=== PATIENT | female | born 1950 | race African-American/Black ===

== ENCOUNTER 2018-10-06 13:33 | Inpatient (IN) | payer MEDICARE, OTHER ==
[~2018-10-06] VITALS: Ht 160 cm; Wt 76.7 kg
[2018-10-06] VITALS (7 sets, daily range): BP systolic 109–162; BP diastolic 61–91
--- NOTE | 2018-10-06 13:36 | NUR ---
ED Nurse Note: Pt was brought in by ambulance from [facility] [place]/t [place] 20mins prior ED arrival. Pt also arrived with low SBP at 78. Pt awake but non verbal, no SOB. DR Pires notified.
[2018-10-06] MEDS ORDERED: Naloxone 1mg/ml 2ml IVP ONE (13:45)
--- NOTE | 2018-10-06 13:45 | Emergency Room Report ---
History of Present Illness General Chief Complaint: Altered Level of Consciousness Source: Medical Record, EMS Present Illness HPI Patient presents with altered level of consciousness for one hour. She has a history in the past of being post cardiac arrest in drug abuse. There is no axis to drugs at the facility apparently. Paramedics found her with good blood pressure however the last blood pressure the obtained was 79 in our entryway. An Accu-Chek in the feels 1:30. Apparently has been admitted at [facility] for similar. Not certain of dx. Dr. Garcia provided records from [facility]. Apparently she had a similar presentation but was febrile and had a respiratory infection. She responded to Narcan and apparently did not need intubation at that time. No further history is obtainable. Allergies: Coded Allergies: ASPIRIN (Verified Allergy, Unknown, 10/06/18) PENICILLINS (Unverified Allergy, Unknown, 10/06/18) Uncoded Allergies: PENICILLIN (Allergy, Unknown, 10/06/18) Patient History Limited by: medical condition Past Medical History: see triage record, old chart reviewed Social History: Denies: alcohol use - in past, drug use - in past Social History Narrative SNF Reviewed Nursing Documentation: PMH: Agreed; PSxH: Agreed Review of Systems All Other Systems: limited Physical Exam Vital Signs Date Time Temp Pulse Resp B/P (MAP) Pulse Ox O2 Delivery O2 Flow Rate FiO2 10/06/18 13:26 98.1 89 26 135/109 (118) 98 Simple Mask 15.0 Sp02 EP Interpretation: reviewed, abnormal - Fluctuating but sometimes interpreted as low by me General Appearance: non-toxic, Stupor Head: normocephalic, atraumatic Eyes: bilateral eye normal inspection, bilateral eye PERRL - pinpoint ENT: moist mucus membranes - Minimal gag present Neck: supple Respiratory: decreased breath sounds, other - Poor tidal volume Cardiovascular #1: normal peripheral pulses, regular rate, rhythm, no edema Cardiovascular #2: 2+ radial (R) Gastrointestinal: non tender, decreased bowel sounds Genitourinary: normal inspection Musculoskeletal: other - Flaccid Neurologic: other - Stuporous and unresponsive to painful stimuli Psychiatric: other - Stupor Reflexes: 1+ knee (R), 1+ knee (L) Skin: warm/dry, cyanosis Procedures Critical Care Time Critical Care Time Total Critical Care Time: 120 min bedside evaluation and treatment excludes procedures (EKG, intubation). Reason for critical care: Hypoxic respiratory failure, stupor, hypocalcemia, review of prior records, discussion was admitting physician and with consultants. Possible complications: hypotension, hypertension, IA, shock, arrhythmias, metabolic acidosis, end organ damage, respiratory failure. Interventions: Intubation, antibiotics, Narcan, treatment of hypocalcemia, adjustment of ventilator, Course: Patient presented with stupor. Multiple attempts at evaluation and final blood gas letter to decision to intubate the patient. Initial intubation was of the right mainstem and therefore the ET tube was pulled back. A second x -ray revealed good ETT position however right middle lobe infiltrate. Narcan had been administered prior to intubation and there was some improvement (more opening of eyes) but still flaccid. Antibiotics begun. Ventilator adjusted after blood gas returns. Critical hypocalcemia treated with calcium gluconate. Discussion of antibiotic choice with pulmonary analytics consultant. Primary physician examined patient emergency department. Patient with improvement and admitted to ICU. Consultations: nursing staff, EMS, admitting MD, consultants, RT Performed by: Dr. Pires Tolerated well condition = critical Intubation Intubation : Consent: Emergent Intubation Method: orotracheal Tube Size (cm): 7.5 - 22 lower gums Breath Sounds after Intubation: equal Intubation Complications: no complications Post Intubation Xray: Yes - Right mainstem bronchus intubation, ET pulled back second x-ray with adequate ET placement. Attempts: One Patient Tolerated: Well Complications: None Medical Decision Making Diagnostic Impression: Primary Impression: Altered level of consciousness Additional Impressions: Respiratory failure Qualified Codes: J96.01 - Acute respiratory failure with hypoxia Right middle lobe pneumonia Qualified Codes: J18.1 - Lobar pneumonia, unspecified organism Hypocalcemia Opiate abuse ER Course Patient presents with altered level of consciousness with minimal but present gag and rhonchorous cough with history of been post cardiac arrest. Differential includes brain bleed, electrolyte imbalance, drug ingestion, sepsis with hypotension, pneumonia amongst others. At this time her airway is patent however she may need to be intubated. ABG was immediately ordered as well as Narcan. She's hypotensive and will be given a fluid bolus. EKG, CT the head, chest x-ray and other labs including sepsis workup are obtained. Patient will be admitted to intensive care unit unless she dramatically improves. Hypoxia and decreased gag. Intubation. (Minimal response to Narcan - eyes more open). Intubated. Thick secretions. R mainstem. Pulled 4 cm and repeat CXR. RML infiltrate. Antibiotics ordered. Discussed with pulmonary analytics consultant. Critically low calcium. Ionized calcium ordered. Also calcium gluconate also ordered. White count normal. Urine tox screen positive for opiates. Initial lactic acid normal. CT scan obtained -no intracranial pathology., Patient somewhat improved with stabilized airway and admitted to ICU to Dr. Main. On the basis of the hypocalcemia magnesium is added to labs. Laboratory Tests Test 10/06/18 13:45 10/06/18 13:55 10/06/18 14:55 10/06/18 16:37 Arterial Blood pH 7.425 (7.350-7.450) 7.431 (7.350-7.450) Arterial Blood Partial Pressure CO2 38.1 mmHg (35.0-45.0) 32.2 mmHg (35.0-45.0) L Arterial Blood Partial Pressure O2 48.6 mmHg (75.0-100.0) 129.0 mmHg (75.0-100.0) H Arterial Blood HCO3 24.4 mmol/L (22.0-26.0) 20.9 mmol/L (22.0-26.0) L Arterial Blood Oxygen Saturation 81.1 % (95-100) *L 98.1 % (95-100) Arterial Blood Base Excess 0.2 (-2-2) -2.5 (-2-2) L Bradly Test Positive Positive White Blood Count 5.9 K/UL (4.8-10.8) Red Blood Count 2.35 M/UL (4.20-5.40) L Hemoglobin 7.0 G/DL (12.0-16.0) L Hematocrit 22.0 % (37.0-47.0) L Mean Corpuscular Volume 94 FL (80-99) Mean Corpuscular Hemoglobin 30.0 PG (27.0-31.0) Mean Corpuscular Hemoglobin Concent 32.0 G/DL (32.0-36.0) Red Cell Distribution Width 12.4 % (11.6-14.8) Platelet Count 140 K/UL (150-450) L Mean Platelet Volume 7.7 FL (6.5-10.1) Neutrophils (%) (Auto) % (45.0-75.0) Lymphocytes (%) (Auto) % (20.0-45.0) Monocytes (%) (Auto) % (1.0-10.0) Eosinophils (%) (Auto) % (0.0-3.0) Basophils (%) (Auto) % (0.0-2.0) Differential Total Cells Counted 100 Neutrophils % (Manual) 74 % (45-75) Lymphocytes % (Manual) 17 % (20-45) L Monocytes % (Manual) 6 % (1-10) Eosinophils % (Manual) 2 % (0-3) Basophils % (Manual) 1 % (0-2) Band Neutrophils 0 % (0-8) Platelet Estimate Decreased L Platelet Morphology Normal Hypochromasia 2+ Anisocytosis 1+ Sodium Level 145 MMOL/L (136-145) Potassium Level 3.1 MMOL/L (3.5-5.1) L Chloride Level 117 MMOL/L (98-107) H Carbon Dioxide Level 18 MMOL/L (21-32) L Anion Gap 10 mmol/L (5-15) Blood Urea Nitrogen 9 mg/dL (7-18) Creatinine 0.5 MG/DL (0.55-1.30) L Estimate Glomerular Filtration Rate > 60 mL/min (>60) Glucose Level 77 MG/DL (74-106) Lactic Acid Level 1.50 mmol/L (0.4-2.0) Calcium Level 5.0 MG/DL (8.5-10.1) *L Iron Level 26 ug/dL (50-175) L Total Iron Binding Capacity 111 ug/dL (250-450) L Percent Iron Saturation 23 % (15-50) Unsaturated Iron Binding 85 ug/dL (112-346) L Ferritin 178 NG/ML (8-388) Total Bilirubin 0.2 MG/DL (0.2-1.0) Aspartate Amino Transferase (AST) 33 U/L (15-37) Alanine Aminotransferase (ALT) 13 U/L (12-78) Alkaline Phosphatase 39 U/L (46-116) L Ammonia 12 umol/L (11-32) Total Creatine Kinase 17 U/L (26-308) L Troponin I 0.042 ng/mL (0.000-0.056) Total Protein 2.8 G/DL (6.4-8.2) L Albumin 1.0 G/DL (3.4-5.0) L Globulin 1.8 g/dL Albumin/Globulin Ratio 0.6 (1.0-2.7) L Vitamin B12 Level 404 PG/ML (193-986) Folate 3.3 NG/ML (8.6-58.9) L Thyroid Stimulating Hormone (TSH) 2.756 uiU/mL (0.358-3.740) Salicylates Level 0.3 ug/mL (2.8-20) L Acetaminophen Level 17 MCG/ML (10-30) Serum Alcohol < 3 mg/dL Urine Color Pale yellow Urine Appearance Clear Urine pH 7 (4.5-8.0) Urine Specific [place] 1.005 (1.005-1.035) Urine Protein Negative (NEGATIVE) Urine Glucose (UA) Negative (NEGATIVE) Urine Ketones 1+ (NEGATIVE) H Urine Blood 1+ (NEGATIVE) H Urine Nitrite Negative (NEGATIVE) Urine Bilirubin Negative (NEGATIVE) Urine Urobilinogen Normal MG/DL (0.0-1.0) Urine Leukocyte Esterase 1+ (NEGATIVE) H Urine RBC 2-4 /HPF (0 - 2) H Urine WBC 2-4 /HPF (0 - 2) Urine Squamous Epithelial Cells Few /LPF (NONE/OCC) Urine Bacteria Few /HPF (NONE) Urine Opiates Screen Positive (NEGATIVE) H Urine Barbiturates Screen Negative (NEGATIVE) Phencyclidine (PCP) Screen Negative (NEGATIVE) Urine Amphetamines Screen Negative (NEGATIVE) Urine Benzodiazepines Screen Negative (NEGATIVE) Urine Cocaine Screen Negative (NEGATIVE) Urine Marijuana (THC) Screen Negative (NEGATIVE) EKG Diagnostic Results Rate: normal Rhythm: NSR ST Segments: no acute changes - NSSTTW changes Rhythm Strip Diag. Results EP Interpretation: yes Rhythm: NSR, no PVC's, no ectopy Chest X-Ray Diagnostic Results Chest X-Ray Diagnostic Results #1: Chest X-Ray Ordered: Yes # of Views/Limited/Complete: 1 View Indication: Other EP Interpretation: Yes Interpretation: no effusion, no pneumothorax, other - R mainstem - pulling 4 cm Impression: Other Electronically Signed by: Electronically signed by Leonel Pires MD Chest X-Ray Diagnostic Results #2: Chest X-Ray Ordered: Yes # of Views/Limited/Complete: 1 View Indication: Other EP Interpretation: Yes Interpretation: no effusion, no pneumothorax, other - RML infiltrate ET good Impression: Other Electronically Signed by: Electronically signed by Leonel Pires MD Last Vital Signs Date Time Temp Pulse Resp B/P (MAP) Pulse Ox O2 Delivery O2 Flow Rate FiO2 10/06/18 18:47 85 20 28 10/06/18 18:00 Mechanical Ventilator 10/06/18 17:33 98.3 139/86 100 10/06/18 16:08 15.0 Status: improved Disposition: ADMITTED INPATIENT Condition: Critical Leonel Pires MD October 06, 2018 13:45
[2018-10-06] MEDS ORDERED: HYDROCHLOROTH12.5 M2 ORAL (13:57)
[2018-10-06] MEDS ORDERED: VITAMIN D1000 UNI1 ORAL (13:57)
[2018-10-06] MEDS ORDERED: POTASSIUM CHLO20 ME3 PO (13:57)
[2018-10-06] MEDS ORDERED: ATORVASTATIN CA20 MG ORAL (13:57)
[2018-10-06] MEDS ORDERED: RAMIPRIL5 MG ORAL (13:57)
[2018-10-06] MEDS ORDERED: LACTULOSE20 GM/301 ORAL (13:57)
[2018-10-06] MEDS ORDERED: ALLOPURINOL100 M1 ORAL (13:57)
[2018-10-06] MEDS ORDERED: FUROSEMIDE20 M1 ORAL (13:57)
[2018-10-06] MEDS ORDERED: RISPERIDONE1 MG ORAL (13:57)
[2018-10-06] MEDS ORDERED: ACETAMINOPHEN500 M5 ORAL (13:57)
[2018-10-06] MEDS ORDERED: PANTOPRAZOLE SO20 MG ORAL (13:57)
[2018-10-06] MEDS ORDERED: NORCO 5-325 TA1 EACH ORAL (13:57)
[2018-10-06] MEDS ORDERED: GABAPENTIN300 MG ORAL (13:57)
--- NOTE | 2018-10-06 14:00 | NUR ---
HAND-OFF: Report given to Paddy HESTER.
--- NOTE | 2018-10-06 14:10 | NUR ---
ED Nurse Note: DR COLE AT BEDSIDE FOR INTUBATION. RT ALSO AT BEDSIDE. VENT SETTINGS: SET RATE: 16, TV: 450, FiO2: 30%, PEEP 5, TUBE SIZE 7.5, 18CM AT LIPS.
--- NOTE | 2018-10-06 14:17 | NUR ---
ED Nurse Note: ORDER PLACED BY DR COLE FOR NONBEHAVIORAL RESTRAINTS DUE TO INTUBATION. PT SLEEPING PEACEFULLY IN BED. WILL HOLD OFF ON RESTRAINTS UNTIL NEEDED. DR COLE AWARE.
[2018-10-06 14:47] LABS: MEAN CORPUSCULAR VOLUME 94 FL (80-99); PLATELET COUNT 140 K/UL (150-450); RED BLOOD COUNT 2.35 M/UL (4.20-5.40); RED CELL DISTRIBUTION WIDTH 12.4 % (11.6-14.8); WHITE BLOOD COUNT 5.9 K/UL (4.8-10.8)
[2018-10-06 15:00] LABS: AMMONIA 12 umol/L (11-32)
[2018-10-06 15:12] LABS: ALANINE AMINOTRANSFERASE 13 U/L (12-78); ALBUMIN/GLOBULIN RATIO 0.6 (1.0-2.7); ALKALINE PHOSPHATASE 39 U/L (46-116); ANION GAP 10 mmol/L (5-15); ASPARTATE AMINO TRANSFERASE 33 U/L (15-37); BILIRUBIN,TOTAL 0.2 MG/DL (0.2-1.0); BLOOD UREA NITROGEN 9 mg/dL (7-18); CARBON DIOXIDE 18 MMOL/L (21-32); CHLORIDE 117 MMOL/L (98-107); CREATINE KINASE 17 U/L (26-308); CREATININE 0.5 MG/DL (0.55-1.30); POTASSIUM 3.1 MMOL/L (3.5-5.1); SODIUM 145 MMOL/L (136-145)
[2018-10-06] MEDS ORDERED: Vancomycin 1 GM in NS 275 ML IVPB ONE (15:15)
[2018-10-06] MEDS ORDERED: Cefepime 1gm vial IM ONE (15:15)
[2018-10-06] MEDS ORDERED: Piperacillin/Tazobactam 3.375 GM in NS 110 ML IVPB ONE (15:15)
[2018-10-06] MEDS ORDERED: Cefepime HCl 1 GM in D5W 55 ML IVPB ONE (15:30)
--- NOTE | 2018-10-06 16:03 | NUR ---
RESPIRATORY NOTE: called to ER that patient may possibly be intubated. ABG taken with results relayed to Dr. Pires. Intubated patient at 1410 with oral ETT 7.5 placed 22cm at the lip. xray taken and verbal told to withdraw ETT 4cm. ETT is now placed 18cm at the lip, secured via anchor fast. no redness or skin tears visible prior to patient being intubated. placed patient on vent settings of AC 16 400 30% +5 and later increase tidal volume to 450. ABG drawn post intubation and resulted to Dr Pires again. Ca Ion also resulted. Sputum collected post intubated and given to RN. will cont to monitor patient and follow orders.
--- NOTE | 2018-10-06 16:22 | Consultation ---
Consult Note Consult Note asked to eval at the request of Dr Main patient seen in ER room 6 intubated Chief Complaint: Altered Level of Consciousness HPI Patient presents with altered level of consciousness for one hour. She has a history in the past of being post cardiac arrest in drug abuse. There is no axis to drugs at the facility apparently. Paramedics found her with good blood pressure however the last blood pressure the obtained was 79 in our entryway. An Accu-Chek in the feels 1:30. Apparently has been admitted at [facility] for similar. Not certain of dx. Allergies: Coded Allergies: ASPIRIN (Verified Allergy, Unknown, 10/06/18) PENICILLINS (Unverified Allergy, Unknown, 10/06/18) intubated tachycardic abd distended , multi surgical scars few ronchi Assessment/Plan acute respiratory failure- Severe Anemia Severe Hypocalcemia Severe hypoalbuminemia ? sepsis lindsay urine studies IV calcium monitor lytes and chemistries Gregory Hagan MD October 06, 2018 16:22
[2018-10-06] MEDS ORDERED: Calcium Gluconate 10% 2 GM in NS 110 ML IV ONE (16:30)
--- NOTE | 2018-10-06 16:30 | NUR ---
ED Nurse Note: DR COLE AT BEDSIDE FOR BORGES CATHETER INSERTION. 16F BORGES CATHETER INSERTED BY DR COLE USING STERILE TECHNIQUE. BORGES DRAINING CLEAR YELLOW URINE. PT TOLERATED WELL.
--- NOTE | 2018-10-06 16:33 | NUR ---
ED Nurse Note: RADIOLOGY CALLED FOR CT.
--- NOTE | 2018-10-06 16:34 | NUR ---
ED Nurse Note: RT CALLED FOR CT ESCORT.
--- NOTE | 2018-10-06 16:41 | NUR ---
ED Nurse Note: PT TO CT VIA DULCE ACCOMPANIED BY RT
[2018-10-06 16:48] LABS: APPEARANCE,URINE CLEAR; BILIRUBIN, URINE NEGATIVE (NEGATIVE); COLOR,URINE PALE YELLOW; GLUCOSE, URINE (UA) NEGATIVE (NEGATIVE); KETONES,URINE 1+ (NEGATIVE); LEUKOCYTE ESTERASE ,URINE 1+ (NEGATIVE); NITRITE,URINE NEGATIVE (NEGATIVE); PH,URINE 7 (4.5-8.0); PROTEIN,URINE NEGATIVE (NEGATIVE); UROBILINOGEN,URINE NORMAL MG/DL (0.0-1.0)
--- NOTE | 2018-10-06 16:55 | NUR ---
ED Nurse Note: PT BACK FROM CT VIA DULCE.
--- NOTE | 2018-10-06 17:00 | NUR ---
ED Nurse Note: ICU CALLED FOR PT TRANSFER. KACIE RAMIREZ NOT READY FOR PT. RN WILL CALL BACK WHEN READY.
--- NOTE | 2018-10-06 17:08 | NUR ---
ED Nurse Note: NEW VENT SETTINGS: A/C: 12 TV: 500
--- NOTE | 2018-10-06 17:11 | NUR ---
ED Nurse Note: CALLED ICU. NO ANSWER.
--- NOTE | 2018-10-06 17:13 | NUR ---
ED Nurse Note: KACIE RAMIREZ STILL NEEDS 5 MINUTES. WILL CALL BACK IN 5 MINUTES.
[2018-10-06 17:20] LABS: FERRITIN 178 NG/ML (8-388)
--- NOTE | 2018-10-06 17:33 | NUR ---
ED Nurse Note: ICU CALLED FOR PT TRANSFER. REPORT GIVEN TO KACIE RAMIREZ. PT TAKEN UP TO ICU VIA GURNEY ON [employer] AND IV VANCO ACCOMPANIED BY EMT, PRIMARY RN, AND RT. VSS.
--- NOTE | 2018-10-06 17:38 | Diagnostic Imaging Report ---
EXAM: CT Head Without Intravenous Contrast CLINICAL HISTORY: ALOC TECHNIQUE: Axial computed tomography images of the head/brain without intravenous contrast. CTDI is 70.38 mGy and DLP is 1382 mGy-cm. One or more of the following dose reduction techniques were used: automated exposure control, adjustment of the mA and/or kV according to patient size, use of iterative reconstruction technique. COMPARISON: No relevant prior studies available. FINDINGS: Brain: No intracranial hemorrhage or apparent acute cortical infarct. Involutional changes with small vessel disease. Ventricles: No ventriculomegaly. Bones/joints: No acute fracture. Soft tissues: Unremarkable. Sinuses: No acute sinusitis. Mastoid air cells: No mastoid effusion. Orbits: Cataract surgery. Tubes, lines and devices: Endotracheal tube. IMPRESSION: No intracranial hemorrhage or apparent acute cortical infarct.
[2018-10-06 17:43] LABS: % IRON SATURATION 23 % (15-50); IRON 26 ug/dL (50-175); TOTAL IRON BINDING CAPACITY 111 ug/dL (250-450)
--- NOTE | 2018-10-06 17:55 | NUR ---
NURSE NOTES: Received new admission from ER. Pt was transferred to ICU via [facility] Report received from Paddy HESTER. Pt is lethargic, opens eyes to voice/name, with pupil response to penlight sluggish, at 3mm bilateral. Pt is intubated with ETT 7.5, at 18cm at right lipline, currently on vent settings of AC12, VT500, Peep 5.0, FIO2 28% at O2sat 99%. Bilateral rhonchi present on auscultation. potline monitor displays NSR with heart rate fluctuating in the 90's. Axillary temp at 98.5F. Bounding radial pulses, and weak pedal pulses noted. No edema on extremities. Skin is intact, with mild dark discoloration on sacral area. Jorge catheter in place, draining clear/yellow urine. Abdomen is round, soft/nontender to touch, with hypoactive bowel sounds present on auscultation. Pt's only belonging is a yellow metal ring on middle-finger of the left hand and yellow metal necklace with blue and red stones. Belonging list was signed upon receipt of pt. Bed is locked with three side rails up and call light within reach. Will continue to monitor pt and follow plan of care per admission orders. Addendum: 10/06/18 at 1915 by RAQUEL CARPENTER RN Also noted old/healed incisional scar on vertical on mid-abdomen and horizontal on RUQ.
[2018-10-06] MEDS: D5 1/2NS w/KCl 40meq 1000ml 1,000 ML IV SCH (18:13)
--- NOTE | 2018-10-06 19:13 | NUR ---
HAND-OFF: Report given to Jason HESTER. VS stable. Endorsed plan of care.
--- NOTE | 2018-10-06 19:30 | NUR ---
NURSE NOTES: Received new admission from Ayanna HESTER, Pt is lethargic, opens eyes to voice/name, with pupil response to penlight sluggish, at 3mm bilateral. Pt is intubated with ETT 7.5, at 18cm at right lipline, currently on vent settings of AC12, VT500, Peep 5.0, FIO2 28% at O2sat 100%. Bilateral rhonchi present on auscultation. shelter monitor displays NSR with heart rate fluctuating in the 80's. Axillary temp at 99.2F. Bounding radial pulses, and weak pedal pulses noted. No edema on extremities. Skin is intact, with mild dark discoloration on sacral area. Jorge catheter in place, draining clear/yellow urine. Abdomen is round, soft/nontender to touch, with hypoactive bowel sounds present on auscultation. Also noted old/healed incisional scar on vertical on mid-abdomen and horizontal on RUQ. Pt's only belonging is a yellow metal ring on middle-finger of the left hand and yellow metal necklace with blue and red stones. Bed is locked with three side rails up and call light within reach. Patient receiving D5W 1/2NS w/40 meq KCL at 75ml/hr. =
--- NOTE | 2018-10-06 20:00 | NUR ---
NURSE NOTES: Patient repositioned and suctioned. Oral care provided. Patient calm and relaxed. Patient able to oepn eyes to verbal responses and seems to be able to response to verbal command as much as possible.
--- NOTE | 2018-10-06 20:15 | Consultation ---
DATE OF CONSULTATION: 10/06/2018 HISTORY OF PRESENT ILLNESS: The patient is a 67-year-old woman who comes to the emergency department because of respiratory distress and altered mental status. She was found to have severe hypoxemia and was intubated. Pneumonia was identified on chest x-ray and antibiotics were administered. I was called to see her in consultation. The patient can provide no additional history. PAST MEDICAL HISTORY: She lives in a fdc. She has had opioid overdose, urinary tract infection, basal ganglia stroke, gout, past cardiac arrest with rib fractures, anemia, protein-calorie malnutrition, morbid obesity, dementia, hypertension, esophageal ulcer, diaphragmatic hernia. ALLERGIES: Aspirin and penicillin. REVIEW OF SYSTEMS: Cannot be obtained. PHYSICAL EXAMINATION: GENERAL: The patient is poorly responsive, lying in bed with an orotracheal tube on ventilator support. VITAL SIGNS: Blood pressure 92/68. There is no high fever. Heart rate is 89 and regular. The patient is obese. HEENT: Head is normocephalic. NECK: No jugular venous distention. CHEST: Decreased breath sounds. CARDIAC: Rhythm is regular. ABDOMEN: Soft and nontender. EXTREMITIES: No clubbing, cyanosis, or edema. DIAGNOSTIC DATA: Chest x-ray shows right base infiltrate. The white count is normal. Differential is pending. Hemoglobin is 7, platelet count is 140,000. A blood gas shows pH of 7.42, pCO2 38, pO2 48. Subsequent blood gas after intubation shows pO2 improved. Chemistries pending. Troponin is normal. Lactic acid is normal. Toxicology and urinalysis are pending. IMPRESSION: 1. Acute respiratory failure. 2. Altered mental status with history of hemorrhagic stroke. 3. Pneumonia right lower lobe. 4. Severe anemia. PLAN: The patient will be admitted to intensive care unit. We will give antibiotics and fluids. Blood transfusion will be given. The patient's condition is critical.. Chevy Garcia M.D. DR: Feliciano JOB#: [id number] CC: Demario Main M.D.; Fax#: [phone] CHEVY GARCIA M.D. ; FAX#: [phone]
--- NOTE | 2018-10-06 20:30 | History and Physical Report ---
DATE OF ADMISSION: 10/06/2018 HISTORY OF PRESENT ILLNESS: This is a 67-year-old female who [facility] and came to the emergency room for altered mental status and hypoxia. The patient is currently nonverbal. No gag reflex, not protecting her airways. The patient is nonverbal. The patient had this kind of issue 3 times, had been in [place] 2 times same time. The obvious reason was not found. The patient came currently hypotensive. PHYSICAL EXAMINATION: VITAL SIGNS: Blood pressure is 70s, pulse 78, respirations 6, temperature no fever. HEENT: Eyes are closed. NECK: Supple. CHEST: Bilateral decreased breath sounds. CARDIOVASCULAR: Regular rhythm. No gallop. No murmur. ABDOMEN: Soft. Positive bowel sounds. EXTREMITIES: No edema. GENITOURINARY: Examination deferred. LABORATORY AND DIAGNOSTIC DATA: Her ABGs are back, pH 7.42, pO2 51, pCO2 51, bicarbonate is low, and saturation is low. Chest x-ray and other laboratories are pending. ASSESSMENT: 1. Acute respiratory failure. 2. Hypoxia. 3. Altered mental status. 4. Diabetes. 5. Encephalopathy. 6. Severe arthritis. 7. History of ulcer on the abdominal wall. PLAN: We will admit on ICU. Start IV fluid. Levophed drip, titrate to blood pressure 90s . Discussed with Dr. Pires. The patient probably needs intubation. We will order ABG after intubation, given Narcan and IV fluid bolus. Sliding scale, Accu-Chek, and consider Nephrology consult as well as consider Cardiology consult. Demario Main M.D. DR: Emily JOB#: [id number] CC:
[2018-10-06] MEDS: Calcium Gluconate 10% 1 GM in NS 110 ML IVPB SCH (21:17)
[2018-10-06] MEDS: Pantoprazole Inj IVP SCH (21:17)
--- NOTE | 2018-10-06 22:00 | NUR ---
NURSE NOTES: Patient repositioned and suctioned. NAD at this time, fluids running. Vitals remains stable.
[2018-10-06] MEDS: Cefepime HCl 1 GM in D5W 55 ML IVPB SCH (22:58)
[2018-10-07] VITALS (24 sets, daily range): BP systolic 108–171; BP diastolic 70–121
--- NOTE | 2018-10-07 | NUR ---
NURSE NOTES: Patient repositioned and given oral care. Patient remains awake. Can respond to commands with head knods. Vitals are stable, no fever.
--- NOTE | 2018-10-07 02:00 | NUR ---
NURSE NOTES: Repositioned patient, remains stable at this time, VSS. no new changes.
--- NOTE | 2018-10-07 04:00 | NUR ---
NURSE NOTES: morning blood drawn and sent to lab. Patient cleaned and repositioned, oral care was also given. VVS no acute changes, will continue to monitor.
[2018-10-07] MEDS: Vancomycin 1gm/D5W 275ml IVPB SCH ×4 (04:11→16:24)
[2018-10-07] MEDS: Calcium Gluconate 10% 1 GM in NS 110 ML IVPB SCH (05:21)
--- NOTE | 2018-10-07 06:00 | NUR ---
NURSE NOTES: Patient more awake and responsive. VSS, SR on the monitor. No acute changes overnight.
[2018-10-07 06:04] LABS: BASOPHILS % (AUTO) 1.2 % (0.0-2.0); EOSINOPHILS % (AUTO) 1.3 % (0.0-3.0); HEMATOCRIT 34.9 % (37.0-47.0); LYMPHOCYTES % (AUTO) 14.7 % (20.0-45.0); MEAN CORPUSCULAR VOLUME 89 FL (80-99); MONOCYTES % (AUTO) 7.4 % (1.0-10.0); NEUTROPHILS % (AUTO) 75.4 % (45.0-75.0); PLATELET COUNT 243 K/UL (150-450); RED BLOOD COUNT 3.93 M/UL (4.20-5.40); WHITE BLOOD COUNT 15.7 K/UL (4.8-10.8)
[2018-10-07 06:24] LABS: ANION GAP 12 mmol/L (5-15); BLOOD UREA NITROGEN 12 mg/dL (7-18); CALCIUM 10.8 MG/DL (8.5-10.1); CARBON DIOXIDE 21 MMOL/L (21-32); CHLORIDE 103 MMOL/L (98-107); POTASSIUM 3.9 MMOL/L (3.5-5.1); SODIUM 136 MMOL/L (136-145)
[2018-10-07 06:28] LABS: ALANINE AMINOTRANSFERASE 31 U/L (12-78); ALBUMIN 2.7 G/DL (3.4-5.0); ALBUMIN/GLOBULIN RATIO 0.7 (1.0-2.7); ALKALINE PHOSPHATASE 101 U/L (46-116); ASPARTATE AMINO TRANSFERASE 57 U/L (15-37); BILIRUBIN,TOTAL 0.5 MG/DL (0.2-1.0); CHOLESTEROL 119 MG/DL (< 200); HDL CHOLESTEROL 30 MG/DL (40-60); TRIGLYCERIDES 96 MG/DL (30-150)
[2018-10-07 06:55] LABS: PHOSPHORUS 3.4 MG/DL (2.5-4.9)
--- NOTE | 2018-10-07 07:01 | NUR ---
RESPIRATORY NOTE: Received pt on AC 12-500ml-28%FiO2- peep 5, pt is orally intubated with ETT 7.5 @18cm lips line, secured with anchor fast. Pt is alert/ awake,no SOB or resp distress noted. Antoine diminished B/S heard upon auscultation, suctioned minimal amount of thin frothy peace white secretions without incidents. Alarms are set and audible, vent is plugged into the red outlet, ambu bag is at bedside. Vent circuits and sxn tube are secured and out of the way. Will continue to monitor pt.
[2018-10-07] MEDS: D5 1/2NS w/KCl 40meq 1000ml 1,000 ML IV SCH ×2 (07:07→13:45)
--- NOTE | 2018-10-07 07:15 | NUR ---
NURSE NOTES: Received pt and change of shift report from Jason HESTER. Pt is awake, opens eyes to voice/name, able to follow with eyes, however uncooperative. Pt is attempting to pull out IV lines and ET tube despite reorientation attempts. Currently on bilateral soft wrist restraints; skin integrity within normal limits at restraint site. Pt is intubated, ETT 7.5 18cm at mid-lipline, with vent settings of AC12, VT500, Peep 5, FIO2 28% with 99% O2sat. Diminished lung sounds. cardiac monitor technician displays NSR-ST, with heart rate fluctuating from upper 90's to 100's. Currently NPO. Abdomen is large/round, soft/nontender to touch, with hypoactive bowel sounds present in all quadrants. Jorge catheter in place, draining clear/yellow urine. Skin is intact, however has brown discoloration on sacrum, and old/healed incisional scar on mid-abdomen and RLQ. Peripheral IV access on right FA #20G and left AC #20G, infusing D5 0.45%NS with KCL 40meq at 75mL/hour. Bed is locked with three side rails up and call light within reach. Will continue to monitor and follow plan of care per MD orders and protocol.
--- NOTE | 2018-10-07 08:00 | NUR ---
NURSE NOTES: Urine output of 30ml/hourly. Temp is 97.3F axillary. BP 164/105. No PRN orders for BP meds at this time. 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 Will inform MD and continue to monitor.
[2018-10-07] MEDS ORDERED: Tubing IV Secondary IV ONE ×2 (08:21→15:02)
[2018-10-07] MEDS ORDERED: NS 275ml ONE (08:21)
--- NOTE | 2018-10-07 09:06 | NUR ---
RESPIRATORY NOTE: Placed pt on CPAP PS 8- peep 5- 28%FiO2 per weaning protocol. Pt is awake/ alert/ follows commands and understand the weaning plan.Pt is tolerating well new setting, no SOB or resp distress noted. RN Ayanna made aware. Will continue to monitor.
[2018-10-07] MEDS: Pantoprazole Inj IVP SCH ×2 (09:21→21:18)
[2018-10-07] MEDS: Cefepime HCl 1 GM in D5W 55 ML IVPB SCH ×2 (09:21→21:17)
--- NOTE | 2018-10-07 10:00 | NUR ---
NURSE NOTES: Pt was seen by Dr Nagel. MD informed regarding weaning protocol done by RT today, pt was placed on CPAP PS 8- peep 5- 28%FiO2. Per MD, chest xray to be done, and repeat in AM. Pt currently on AC12 VT500 Peep 5, FIO2 28% with O2sat 100%. VS stable.
--- NOTE | 2018-10-07 10:27 | Pulmonolgy Critical Care Note ---
Critical Care - Asmt/Plan Assessment/Plan: 1. Acute respiratory failure. 2. Altered mental status with history of hemorrhagic stroke. 3. Pneumonia right lower lobe. 4. Severe anemia. 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 Critical Care - Objective Last 24 Hour Vital Signs Date Time Temp Pulse Resp B/P (MAP) Pulse Ox O2 Delivery O2 Flow Rate FiO2 10/07/18 09:06 98 25 28 28 10/07/18 09:05 10 10/07/18 09:00 106 19 164/105 (124) 100 10/07/18 08:00 28 10/07/18 08:00 97.3 96 19 163/102 (122) 100 10/07/18 07:34 97 10/07/18 07:01 105 26 28 10/07/18 07:00 106 16 165/121 (136) 100 10/07/18 06:00 88 16 165/100 (121) 100 10/07/18 05:00 90 18 171/101 (124) 100 10/07/18 04:49 90 17 28 10/07/18 04:00 28 10/07/18 04:00 Mechanical Ventilator 10/07/18 04:00 88 10/07/18 04:00 99.6 85 18 120/104 (109) 100 10/07/18 03:15 95 19 28 10/07/18 03:00 90 16 136/92 (107) 100 10/07/18 02:00 88 15 124/93 (103) 100 10/07/18 01:00 90 17 110/88 (95) 100 10/07/18 00:58 100 18 28 10/07/18 00:00 67 10/07/18 00:00 98.7 105 22 120/95 (103) 100 10/07/18 00:00 28 10/07/18 00:00 Mechanical Ventilator 10/06/18 23:07 102 18 28 10/06/18 23:00 98 16 114/67 (83) 100 10/06/18 22:00 98 18 109/87 (94) 100 10/06/18 21:12 97 19 28 10/06/18 21:00 88 20 119/78 (92) 100 10/06/18 20:00 28 10/06/18 20:00 84 19 111/75 (87) 100 10/06/18 20:00 Mechanical Ventilator 10/06/18 19:00 99.3 86 19 125/86 (99) 100 10/06/18 18:47 85 20 28 10/06/18 18:45 28 10/06/18 18:10 96 10/06/18 18:00 Mechanical Ventilator 10/06/18 17:33 98.3 86 22 139/86 100 Mechanical Ventilator 28 10/06/18 17:09 88 20 28 10/06/18 17:07 98.4 87 18 125/91 100 Mechanical Ventilator 28 10/06/18 16:08 98.2 88 22 162/61 100 Mechanical Ventilator 15.0 30 10/06/18 15:48 89 22 30 10/06/18 14:15 89 24 98 Mechanical Ventilator 30 10/06/18 14:15 89 22 30 10/06/18 13:36 89 26 Room Air 10/06/18 13:26 98.1 89 26 135/109 (118) 98 Simple Mask 15.0 Status: awake Condition: critical Lungs: clear Heart: HR/BP stable Abdomen: soft, non-tender Extremities: no C/C/E Decubiti: location Critical Care - Subjective ROS Limited/Unobtainable: Yes Condition: critical FI02: 28 Vent Support Breath Rate: 12 Vent Support Mode: AC Vent Tidal Volume: 500 Sputum Amount: Small PEEP: 5.0 PIP: 13 I&O: Intake and Output 10/06/18 10/07/18 19:00 07:00 Intake Total 2155 ml 1770 ml Output Total 25 ml 725 ml Balance 2130 ml 1045 ml Intake IV Total 2155 ml 1770 ml Output Urine Total 25 ml 725 ml # Voids 1 Subjective: awake on cpap 5 ps 8 tv 350 rr stable no new cxr today on iv abx nebs answers some yn questions no pressors ET-Tube: 7.5 ET Position: 18 Labs: Current Medications Medications (Trade) Dose Ordered Sig/Yumiko Route PRN Reason Start Time Stop Time Status Last Admin Dose Admin Calcium Gluconate 1 gm/Sodium Chloride 120 ml @ 240 mls/hr Q8HR IVPB 10/06/18 22:00 11/05/18 21:59 10/07/18 05:21 Cefepime HCl 1 gm/ Dextrose 55 ml @ 110 mls/hr EVERY 12 HOURS IVPB 10/06/18 23:00 10/13/18 22:59 10/07/18 09:21 Dextrose/ Electrolytes 1,000 ml @ 75 mls/hr [id number] IV 10/06/18 17:30 11/05/18 17:29 10/07/18 07:07 Metronidazole 100 ml @ 100 mls/hr Q6HR IVPB 10/06/18 22:00 10/13/18 21:59 10/07/18 05:22 Pantoprazole (Protonix) 40 mg EVERY 12 HOURS IVP 10/06/18 21:00 11/05/18 20:59 10/07/18 09:21 Vancomycin HCl (Vanco rx to dose) 1 ea DAILY PRN MISC Per rx protocol 10/06/18 15:15 11/05/18 15:14 Vancomycin HCl 1 gm/Dextrose 275 ml @ 183.708 mls/hr Q12HR@0400,1600 IVPB 10/07/18 04:00 10/12/18 03:59 10/07/18 04:11 Laboratory Tests Test 10/06/18 13:45 10/06/18 13:55 10/06/18 14:55 10/06/18 16:37 Arterial Blood pH 7.425 (7.350-7.450) 7.431 (7.350-7.450) Arterial Blood Partial Pressure CO2 38.1 mmHg (35.0-45.0) 32.2 mmHg (35.0-45.0) L Arterial Blood Partial Pressure O2 48.6 mmHg (75.0-100.0) 129.0 mmHg (75.0-100.0) H Arterial Blood HCO3 24.4 mmol/L (22.0-26.0) 20.9 mmol/L (22.0-26.0) L Arterial Blood Oxygen Saturation 81.1 % (95-100) *L 98.1 % (95-100) Arterial Blood Base Excess 0.2 (-2-2) -2.5 (-2-2) L Bradly Test Positive Positive White Blood Count 5.9 K/UL (4.8-10.8) Red Blood Count 2.35 M/UL (4.20-5.40) L Hemoglobin 7.0 G/DL (12.0-16.0) L Hematocrit 22.0 % (37.0-47.0) L Mean Corpuscular Volume 94 FL (80-99) Mean Corpuscular Hemoglobin 30.0 PG (27.0-31.0) Mean Corpuscular Hemoglobin Concent 32.0 G/DL (32.0-36.0) Red Cell Distribution Width 12.4 % (11.6-14.8) Platelet Count 140 K/UL (150-450) L Mean Platelet Volume 7.7 FL (6.5-10.1) Neutrophils (%) (Auto) % (45.0-75.0) Lymphocytes (%) (Auto) % (20.0-45.0) Monocytes (%) (Auto) % (1.0-10.0) Eosinophils (%) (Auto) % (0.0-3.0) Basophils (%) (Auto) % (0.0-2.0) Differential Total Cells Counted 100 Neutrophils % (Manual) 74 % (45-75) Lymphocytes % (Manual) 17 % (20-45) L Monocytes % (Manual) 6 % (1-10) Eosinophils % (Manual) 2 % (0-3) Basophils % (Manual) 1 % (0-2) Band Neutrophils 0 % (0-8) Platelet Estimate Decreased L Platelet Morphology Normal Hypochromasia 2+ Anisocytosis 1+ Sodium Level 145 MMOL/L (136-145) Potassium Level 3.1 MMOL/L (3.5-5.1) L Chloride Level 117 MMOL/L (98-107) H Carbon Dioxide Level 18 MMOL/L (21-32) L Anion Gap 10 mmol/L (5-15) Blood Urea Nitrogen 9 mg/dL (7-18) Creatinine 0.5 MG/DL (0.55-1.30) L Estimat Glomerular Filtration Rate > 60 mL/min (>60) Glucose Level 77 MG/DL (74-106) Lactic Acid Level 1.50 mmol/L (0.4-2.0) Calcium Level 5.0 MG/DL (8.5-10.1) *L Iron Level 26 ug/dL (50-175) L Total Iron Binding Capacity 111 ug/dL (250-450) L Percent Iron Saturation 23 % (15-50) Unsaturated Iron Binding 85 ug/dL (112-346) L Ferritin 178 NG/ML (8-388) Total Bilirubin 0.2 MG/DL (0.2-1.0) Aspartate Amino Transf (AST/SGOT) 33 U/L (15-37) Alanine Aminotransferase (ALT/SGPT) 13 U/L (12-78) Alkaline Phosphatase 39 U/L (46-116) L Ammonia 12 umol/L (11-32) Total Creatine Kinase 17 U/L (26-308) L Troponin I 0.042 ng/mL (0.000-0.056) Total Protein 2.8 G/DL (6.4-8.2) L Albumin 1.0 G/DL (3.4-5.0) L Globulin 1.8 g/dL Albumin/Globulin Ratio 0.6 (1.0-2.7) L Vitamin B12 Level 404 PG/ML (193-986) Folate 3.3 NG/ML (8.6-58.9) L Thyroid Stimulating Hormone (TSH) 2.756 uiU/mL (0.358-3.740) Salicylates Level 0.3 ug/mL (2.8-20) L Acetaminophen Level 17 MCG/ML (10-30) Serum Alcohol < 3 mg/dL Urine Color Pale yellow Urine Appearance Clear Urine pH 7 (4.5-8.0) Urine Specific [place] 1.005 (1.005-1.035) Urine Protein Negative (NEGATIVE) Urine Glucose (UA) Negative (NEGATIVE) Urine Ketones 1+ (NEGATIVE) H Urine Blood 1+ (NEGATIVE) H Urine Nitrite Negative (NEGATIVE) Urine Bilirubin Negative (NEGATIVE) Urine Urobilinogen Normal MG/DL (0.0-1.0) Urine Leukocyte Esterase 1+ (NEGATIVE) H Urine RBC 2-4 /HPF (0 - 2) H Urine WBC 2-4 /HPF (0 - 2) Urine Squamous Epithelial Cells Few /LPF (NONE/OCC) Urine Bacteria Few /HPF (NONE) Urine Opiates Screen Positive (NEGATIVE) H Urine Barbiturates Screen Negative (NEGATIVE) Phencyclidine (PCP) Screen Negative (NEGATIVE) Urine Amphetamines Screen Negative (NEGATIVE) Urine Benzodiazepines Screen Negative (NEGATIVE) Urine Cocaine Screen Negative (NEGATIVE) Urine Marijuana (THC) Screen Negative (NEGATIVE) Test 10/07/18 04:00 10/07/18 10:05 White Blood Count 15.7 K/UL (4.8-10.8) #H Red Blood Count 3.93 M/UL (4.20-5.40) L Hemoglobin 12.0 G/DL (12.0-16.0) # Hematocrit 34.9 % (37.0-47.0) #L Mean Corpuscular Volume 89 FL (80-99) Mean Corpuscular Hemoglobin 30.5 PG (27.0-31.0) Mean Corpuscular Hemoglobin Concent 34.2 G/DL (32.0-36.0) Red Cell Distribution Width 12.0 % (11.6-14.8) Platelet Count 243 K/UL (150-450) # Mean Platelet Volume 7.0 FL (6.5-10.1) Neutrophils (%) (Auto) 75.4 % (45.0-75.0) H Lymphocytes (%) (Auto) 14.7 % (20.0-45.0) L Monocytes (%) (Auto) 7.4 % (1.0-10.0) Eosinophils (%) (Auto) 1.3 % (0.0-3.0) Basophils (%) (Auto) 1.2 % (0.0-2.0) Sodium Level 136 MMOL/L (136-145) Potassium Level 3.9 MMOL/L (3.5-5.1) Chloride Level 103 MMOL/L (98-107) Carbon Dioxide Level 21 MMOL/L (21-32) Anion Gap 12 mmol/L (5-15) Blood Urea Nitrogen 12 mg/dL (7-18) Creatinine 1.0 MG/DL (0.55-1.30) # Estimat Glomerular Filtration Rate > 60 mL/min (>60) Glucose Level 119 MG/DL (74-106) H Hemoglobin A1c 5.6 % (4.3-6.0) Uric Acid 6.3 MG/DL (2.6-7.2) Calcium Level 10.8 MG/DL (8.5-10.1) #H Ionized Calcium (Measured) 1.31 mmol/L (1.10-1.35) Phosphorus Level 3.4 MG/DL (2.5-4.9) Magnesium Level 1.1 MG/DL (1.8-2.4) L Total Bilirubin 0.5 MG/DL (0.2-1.0) Aspartate Amino Transf (AST/SGOT) 57 U/L (15-37) H Alanine Aminotransferase (ALT/SGPT) 31 U/L (12-78) Alkaline Phosphatase 101 U/L (46-116) Ammonia 23 umol/L (11-32) Troponin I 1.583 ng/mL (0.000-0.056) C-Reactive Protein, Quantitative 2.0 mg/dL (0.00-0.90) H Pro-B-Type Natriuretic Peptide 235 pg/mL (0-125) H Total Protein 6.7 G/DL (6.4-8.2) # Albumin 2.7 G/DL (3.4-5.0) L Globulin 4.0 g/dL Albumin/Globulin Ratio 0.7 (1.0-2.7) L Triglycerides Level 96 MG/DL (30-150) Cholesterol Level 119 MG/DL (< 200) LDL Cholesterol 74 mg/dL (<100) HDL Cholesterol 30 MG/DL (40-60) L Cholesterol/HDL Ratio 4.0 (3.3-4.4) Cortisol AM Sample Pending Arterial Blood pH 7.432 (7.350-7.450) Arterial Blood Partial Pressure CO2 29.8 mmHg (35.0-45.0) L Arterial Blood Partial Pressure O2 110.3 mmHg (75.0-100.0) H Arterial Blood HCO3 19.4 mmol/L (22.0-26.0) L Arterial Blood Oxygen Saturation 97.7 % (95-100) Arterial Blood Base Excess -3.7 (-2-2) L Bradly Test Positive Madison Nagel DO October 07, 2018 10:27
--- NOTE | 2018-10-07 10:55 | NUR ---
RD ASSESSMENT & RECOMMENDATIONS SEE CARE ACTIVITY FOR COMPLETE ASSESSMENT DAILY ESTIMATED NEEDS: Needs based on Critical care, dm 56kg adj 22-28 kcals/kg [id number] total kcals 1.2-2 g protein/kg 67-112 g total protein 25-30 mL/kg 0440-3222 total fluid mLs NUTRITION DIAGNOSIS: Swallowing difficulty r/t respiratory failure as evidenced by pt is orally intubated, NPO. 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
--- NOTE | 2018-10-07 12:00 | NUR ---
NURSE NOTES: Pt is resting in semi-ravi's position, opens eyes to voice/name, able to follow with eyes, however uncooperative. Pt is attempting to pull out IV lines and ET tube despite reorientation attempts. Currently on bilateral soft wrist restraints; skin integrity within normal limits at restraint site. Vent settings maintained at AC12, VT500, Peep 5, FIO2 28% with 99% O2sat. monitoring analyst displays SR, with heart rate 90's. Currently NPO. Jorge catheter continues to drain clear/yellow urine. IV infusing D5 0.45%NS with KCL 40meq at 75mL/hour. Oral care done, pt suctioned, cleaned and repositioned.
--- NOTE | 2018-10-07 12:43 | Nephrology Progress Note ---
Assessment/Plan Problem List: (1) Respiratory failure (2) Hypocalcemia (3) Right middle lobe pneumonia (4) Hypertension (5) Elevated troponin I level Assessment acute respiratory failure- Severe Anemia doubt accuracy Severe Hypocalcemia doubt accuracy Severe hypoalbuminemia doubt accuracy ? sepsis elevated troponin HTN OOC Plan lindsay urine studies DC IV calcium monitor lytes and chemistries folic acid NG Nitrate , pavix ( ASA Allergy) Clonidin PRN Cardiazem for high BP start feeding mag IV Subjective ROS Limited/Unobtainable: Yes Objective Objective Last 24 Hour Vital Signs Date Time Temp Pulse Resp B/P (MAP) Pulse Ox O2 Delivery O2 Flow Rate FiO2 10/07/18 12:00 99.0 101 19 140/107 (118) 100 10/07/18 11:08 110 23 28 28 10/07/18 11:00 111 17 121/77 (92) 100 10/07/18 10:00 109 17 165/108 (127) 99 10/07/18 09:06 98 25 28 28 10/07/18 09:05 10 10/07/18 09:00 106 19 164/105 (124) 100 10/07/18 08:00 28 10/07/18 08:00 97.3 96 19 163/102 (122) 100 10/07/18 08:00 Mechanical Ventilator 10/07/18 07:34 97 10/07/18 07:01 105 26 28 10/07/18 07:00 106 16 165/121 (136) 100 10/07/18 06:00 88 16 165/100 (121) 100 10/07/18 05:00 90 18 171/101 (124) 100 10/07/18 04:49 90 17 28 10/07/18 04:00 28 10/07/18 04:00 Mechanical Ventilator 10/07/18 04:00 88 10/07/18 04:00 99.6 85 18 120/104 (109) 100 10/07/18 03:15 95 19 28 10/07/18 03:00 90 16 136/92 (107) 100 10/07/18 02:00 88 15 124/93 (103) 100 10/07/18 01:00 90 17 110/88 (95) 100 10/07/18 00:58 100 18 28 10/07/18 00:00 67 10/07/18 00:00 98.7 105 22 120/95 (103) 100 10/07/18 00:00 28 10/07/18 00:00 Mechanical Ventilator 10/06/18 23:07 102 18 28 10/06/18 23:00 98 16 114/67 (83) 100 10/06/18 22:00 98 18 109/87 (94) 100 10/06/18 21:12 97 19 28 10/06/18 21:00 88 20 119/78 (92) 100 10/06/18 20:00 28 10/06/18 20:00 84 19 111/75 (87) 100 10/06/18 20:00 Mechanical Ventilator 10/06/18 19:00 99.3 86 19 125/86 (99) 100 10/06/18 18:47 85 20 28 10/06/18 18:45 28 10/06/18 18:10 96 10/06/18 18:00 Mechanical Ventilator 10/06/18 17:33 98.3 86 22 139/86 100 Mechanical Ventilator 28 10/06/18 17:09 88 20 28 10/06/18 17:07 98.4 87 18 125/91 100 Mechanical Ventilator 28 10/06/18 16:08 98.2 88 22 162/61 100 Mechanical Ventilator 15.0 30 10/06/18 15:48 89 22 30 10/06/18 14:15 89 24 98 Mechanical Ventilator 30 10/06/18 14:15 89 22 30 10/06/18 13:36 89 26 Room Air 10/06/18 13:26 98.1 89 26 135/109 (118) 98 Simple Mask 15.0 Intake and Output 10/06/18 10/07/18 18:59 06:59 Intake Total 2155 ml 1550 ml Output Total 720 ml Balance 2155 ml 830 ml Intake IV Total 2155 ml 1550 ml Output Urine Total 720 ml # Voids 1 Laboratory Tests 10/06/18 13:45: Arterial Blood pH 7.425, Arterial Blood Partial Pressure CO2 38.1, Arterial Blood Partial Pressure O2 48.6*L, Arterial Blood HCO3 24.4, Arterial Blood Oxygen Saturation 81.1*L, Arterial Blood Base Excess 0.2, Bradly Test Positive 10/06/18 13:55: White Blood Count 5.9, Red Blood Count 2.35L, Hemoglobin 7.0L, Hematocrit 22.0L , Mean Corpuscular Volume 94, Mean Corpuscular Hemoglobin 30.0, Mean Corpuscular Hemoglobin Concent 32.0, Red Cell Distribution Width 12.4, Platelet Count 140L, Mean Platelet Volume 7.7, Neutrophils (%) (Auto) , Lymphocytes (%) ( Auto) , Monocytes (%) (Auto) , Eosinophils (%) (Auto) , Basophils (%) (Auto) , Differential Total Cells Counted 100, Neutrophils % (Manual) 74, Lymphocytes % ( Manual) 17L, Monocytes % (Manual) 6, Eosinophils % (Manual) 2, Basophils % ( Manual) 1, Band Neutrophils 0, Platelet Estimate DecreasedL, Platelet Morphology Normal, Hypochromasia 2+, Anisocytosis 1+, Sodium Level 145, Potassium Level 3.1L, Chloride Level 117H, Carbon Dioxide Level 18L, Anion Gap 10, Blood Urea Nitrogen 9, Creatinine 0.5L, Estimat Glomerular Filtration Rate > 60, Glucose Level 77, Lactic Acid Level 1.50, Calcium Level 5.0*L, Iron Level 26L, Total Iron Binding Capacity 111L, Percent Iron Saturation 23, Unsaturated Iron Binding 85L, Ferritin 178, Total Bilirubin 0.2, Aspartate Amino Transf (AST /SGOT) 33, Alanine Aminotransferase (ALT/SGPT) 13, Alkaline Phosphatase 39L, Ammonia 12, Total Creatine Kinase 17L, Troponin I 0.042, Total Protein 2.8L, Albumin 1.0L, Globulin 1.8, Albumin/Globulin Ratio 0.6L, Vitamin B12 Level 404, Folate 3.3L, Thyroid Stimulating Hormone (TSH) 2.756, Salicylates Level 0.3L, Acetaminophen Level 17, Serum Alcohol < 3 10/06/18 14:55: Arterial Blood pH 7.431, Arterial Blood Partial Pressure CO2 32.2L, Arterial Blood Partial Pressure O2 129.0H, Arterial Blood HCO3 20.9L, Arterial Blood Oxygen Saturation 98.1, Arterial Blood Base Excess -2.5L, Bradly Test Positive 10/06/18 16:37: Urine Color Pale yellow, Urine Appearance Clear, Urine pH 7, Urine Specific [place] 1.005, Urine Protein Negative, Urine Glucose (UA) Negative, Urine Ketones 1+H, Urine Blood 1+H, Urine Nitrite Negative, Urine Bilirubin Negative, Urine Urobilinogen Normal, Urine Leukocyte Esterase 1+H, Urine RBC 2-4H, Urine WBC 2-4, Urine Squamous Epithelial Cells Few, Urine Bacteria Few, Urine Opiates Screen PositiveH, Urine Barbiturates Screen Negative, Phencyclidine (PCP) Screen Negative, Urine Amphetamines Screen Negative, Urine Benzodiazepines Screen Negative, Urine Cocaine Screen Negative, Urine Marijuana (THC) Screen Negative 10/07/18 04:00: White Blood Count 15.7#H, Red Blood Count 3.93L, Hemoglobin 12.0#, Hematocrit 34.9#L, Mean Corpuscular Volume 89, Mean Corpuscular Hemoglobin 30.5, Mean Corpuscular Hemoglobin Concent 34.2, Red Cell Distribution Width 12.0, Platelet Count 243#, Mean Platelet Volume 7.0, Neutrophils (%) (Auto) 75.4H, Lymphocytes (%) (Auto) 14.7L, Monocytes (%) (Auto) 7.4, Eosinophils (%) (Auto) 1.3, Basophils (%) (Auto) 1.2, Sodium Level 136, Potassium Level 3.9, Chloride Level 103, Carbon Dioxide Level 21, Anion Gap 12, Blood Urea Nitrogen 12, Creatinine 1.0#, Estimat Glomerular Filtration Rate > 60, Glucose Level 119H, Hemoglobin A1c 5.6, Uric Acid 6.3, Calcium Level 10.8#H, Ionized Calcium (Measured) 1.31, Phosphorus Level 3.4, Magnesium Level 1.1L, Total Bilirubin 0.5, Aspartate Amino Transf (AST/SGOT) 57H, Alanine Aminotransferase (ALT/SGPT) 31, Alkaline Phosphatase 101, Ammonia 23, Troponin I 1.583H, C-Reactive Protein, Quantitative 2.0H, Pro-B-Type Natriuretic Peptide 235H, Total Protein 6.7#, Albumin 2.7L, Globulin 4.0, Albumin/Globulin Ratio 0.7L, Triglycerides Level 96 , Cholesterol Level 119, LDL Cholesterol 74, HDL Cholesterol 30L, Cholesterol/ HDL Ratio 4.0, Cortisol AM Sample [Pending] 10/07/18 10:05: Arterial Blood pH 7.432, Arterial Blood Partial Pressure CO2 29.8L, Arterial Blood Partial Pressure O2 110.3H, Arterial Blood HCO3 19.4L, Arterial Blood Oxygen Saturation 97.7, Arterial Blood Base Excess -3.7L, Bradly Test Positive Height (Feet): 5 Height (Inches): 3.00 Weight (Pounds): 149 EENT: other - vented Neck: limited range of motion Cardiovascular: tachycardia Abdomen: distended Gregory Gutierrez MD October 07, 2018 12:43
[2018-10-07] MEDS ORDERED: Aspirin Baby 81mg NG SCH (12:45)
[2018-10-07] MEDS: Nitroglycerin Patch 0.4mg TDERMAL SCH (13:45)
--- NOTE | 2018-10-07 14:00 | NUR ---
NURSE NOTES: OG-tube inserted per Dr Gutierrez's order, and KUB done. Waiting for placement confirmation.
--- NOTE | 2018-10-07 14:14 | NUR ---
CASE MANAGEMENT: REVIEW 67Y/F NIKKI FROM [facility] CC: HYPOTENSION SI: ALOC . ACUTE RESP FAILURE . ANEMIA . SEVERE HYPOCALCEMIA T 98.2 HR 88 RR 26 BP 162/61 SAT 98% MECH VENT FIO2 30 H/H 7.0/22.0 K 3.1 CALCIUM 5.0 ABG: PO2 48.6 O2 SAT 81.1 IS: NARCAN IV X1 NS IVF BOLUS X1 FLAGYL IV X1 CEFEPIME IM X1 VANCO IV X1 ZOSYN IV X1 CALCIUM GLUCONATE IV X1 D5 w/KCl 40mEq IVF BOLUS X1 PATIENT ADMITTED TO ICU 10/06/2018 DCP: PATIENT IS FROM [facility]
--- NOTE | 2018-10-07 16:00 | NUR ---
NURSE NOTES: Pt is awake, alert, confused, impulsive, opens eyes to voice/name, able to follow with eyes, however uncooperative. Pt is attempting to pull out IV lines and ET tube despite reorientation and distraction attempts. Currently on bilateral soft wrist restraints; skin integrity within normal limits at restraint site. satellite project site monitor displays ST, with heart rate in the 100's. Currently NPO. Jorge catheter continues to drain clear/yellow urine with average of 40ml/hourly. D5 0.45%NS with KCL 40meq infusing at 50mL/hour. Oral care given, pt suctioned with output of small, thick, white secretion.
[2018-10-07] MEDS: dilTIAZem HCl 60mg tab NG SCH ×2 (16:20→21:18)
--- NOTE | 2018-10-07 17:30 | NUR ---
NURSE NOTES: Pt was cleaned and repositioned. Oral care done and pt suctioned. VS stable.
--- NOTE | 2018-10-07 17:44 | Consultation ---
History of Present Illness General Chief Complaint: Altered Level of Consciousness Present Illness Allergies: Coded Allergies: ASPIRIN (Verified Allergy, Unknown, 10/06/18) PENICILLINS (Unverified Allergy, Unknown, 10/06/18) Uncoded Allergies: PENICILLIN (Allergy, Unknown, 10/06/18) Medication History Scheduled Acetaminophen (Acetaminophen), 650 MG ORAL Q4H, (Reported) Allopurinol* (Allopurinol*), 100 MG ORAL DAILY, (Reported) Atorvastatin Calcium* (Atorvastatin Calcium*), 10 MG ORAL BEDTIME, (Reported) Cholecalciferol (Vitamin D3)* (Vitamin D*), 2,000 UNITS ORAL DAILY, (Reported) Furosemide* (Lasix*), 20 MG ORAL DAILY, (Reported) Gabapentin* (Gabapentin*), 300 MG ORAL BEDTIME, (Reported) Hydrochlorothiazide* (Hydrochlorothiazide*), 12.5 MG ORAL DAILY, (Reported) Pantoprazole (Pantoprazole), 40 MG ORAL EVERY 12 HOURS, (Reported) Ramipril* (Ramipril*), 5 MG ORAL DAILY, (Reported) Scheduled PRN Hydrocodone Bit/Acetaminophen 5-325* (Valley 5-325*), 1 TAB ORAL Q6H PRN for For Pain, (Reported) Miscellaneous Medications Lactulose (Lactulose*), 30 ML ORAL, (Reported) Potassium Chloride (Potassium Chloride), 10 MEQ PO, (Reported) Risperidone (Risperidone), 1 MG ORAL, (Reported) Patient History Healthcare decision maker Resuscitation status Full Code Advanced Directive on File No Physical Exam Last 24 Hour Vital Signs Date Time Temp Pulse Resp B/P (MAP) Pulse Ox O2 Delivery O2 Flow Rate FiO2 10/07/18 17:16 89 18 28 10/07/18 17:00 96 18 111/71 (84) 100 10/07/18 16:20 101 135/84 10/07/18 16:00 28 10/07/18 16:00 104 18 135/84 (101) 100 10/07/18 16:00 Mechanical Ventilator 10/07/18 15:36 105 10/07/18 15:02 107 21 28 10/07/18 15:00 107 17 109/73 (85) 96 10/07/18 14:00 95 19 124/104 (111) 100 10/07/18 13:45 164/120 10/07/18 13:03 97 20 28 10/07/18 13:00 96 19 164/120 (135) 100 10/07/18 12:00 102 10/07/18 12:00 99.0 101 19 140/107 (118) 100 10/07/18 12:00 Mechanical Ventilator 10/07/18 12:00 28 10/07/18 11:08 110 23 28 28 10/07/18 11:00 111 17 121/77 (92) 100 10/07/18 10:00 109 17 165/108 (127) 99 10/07/18 09:06 98 25 28 28 10/07/18 09:05 10 10/07/18 09:00 106 19 164/105 (124) 100 10/07/18 08:00 28 10/07/18 08:00 97.3 96 19 163/102 (122) 100 10/07/18 08:00 Mechanical Ventilator 10/07/18 07:34 97 10/07/18 07:01 105 26 28 10/07/18 07:00 106 16 165/121 (136) 100 10/07/18 06:00 88 16 165/100 (121) 100 10/07/18 05:00 90 18 171/101 (124) 100 10/07/18 04:49 90 17 28 10/07/18 04:00 28 10/07/18 04:00 Mechanical Ventilator 10/07/18 04:00 88 10/07/18 04:00 99.6 85 18 120/104 (109) 100 10/07/18 03:15 95 19 28 10/07/18 03:00 90 16 136/92 (107) 100 10/07/18 02:00 88 15 124/93 (103) 100 10/07/18 01:00 90 17 110/88 (95) 100 10/07/18 00:58 100 18 28 10/07/18 00:00 67 10/07/18 00:00 98.7 105 22 120/95 (103) 100 10/07/18 00:00 28 10/07/18 00:00 Mechanical Ventilator 10/06/18 23:07 102 18 28 10/06/18 23:00 98 16 114/67 (83) 100 10/06/18 22:00 98 18 109/87 (94) 100 10/06/18 21:12 97 19 28 10/06/18 21:00 88 20 119/78 (92) 100 10/06/18 20:00 28 10/06/18 20:00 84 19 111/75 (87) 100 10/06/18 20:00 Mechanical Ventilator 10/06/18 19:00 99.3 86 19 125/86 (99) 100 10/06/18 18:47 85 20 28 10/06/18 18:45 28 10/06/18 18:10 96 10/06/18 18:00 Mechanical Ventilator Intake and Output 10/06/18 10/07/18 18:59 06:59 Intake Total 2155 ml 1550 ml Output Total 720 ml Balance 2155 ml 830 ml Intake IV Total 2155 ml 1550 ml Output Urine Total 720 ml # Voids 1 Laboratory Tests Test 10/07/18 04:00 10/07/18 10:05 White Blood Count 15.7 K/UL (4.8-10.8) #H Red Blood Count 3.93 M/UL (4.20-5.40) L Hemoglobin 12.0 G/DL (12.0-16.0) # Hematocrit 34.9 % (37.0-47.0) #L Mean Corpuscular Volume 89 FL (80-99) Mean Corpuscular Hemoglobin 30.5 PG (27.0-31.0) Mean Corpuscular Hemoglobin Concent 34.2 G/DL (32.0-36.0) Red Cell Distribution Width 12.0 % (11.6-14.8) Platelet Count 243 K/UL (150-450) # Mean Platelet Volume 7.0 FL (6.5-10.1) Neutrophils (%) (Auto) 75.4 % (45.0-75.0) H Lymphocytes (%) (Auto) 14.7 % (20.0-45.0) L Monocytes (%) (Auto) 7.4 % (1.0-10.0) Eosinophils (%) (Auto) 1.3 % (0.0-3.0) Basophils (%) (Auto) 1.2 % (0.0-2.0) Sodium Level 136 MMOL/L (136-145) Potassium Level 3.9 MMOL/L (3.5-5.1) Chloride Level 103 MMOL/L (98-107) Carbon Dioxide Level 21 MMOL/L (21-32) Anion Gap 12 mmol/L (5-15) Blood Urea Nitrogen 12 mg/dL (7-18) Creatinine 1.0 MG/DL (0.55-1.30) # Estimat Glomerular Filtration Rate > 60 mL/min (>60) Glucose Level 119 MG/DL (74-106) H Hemoglobin A1c 5.6 % (4.3-6.0) Uric Acid 6.3 MG/DL (2.6-7.2) Calcium Level 10.8 MG/DL (8.5-10.1) #H Ionized Calcium (Measured) 1.31 mmol/L (1.10-1.35) Phosphorus Level 3.4 MG/DL (2.5-4.9) Magnesium Level 1.1 MG/DL (1.8-2.4) L Total Bilirubin 0.5 MG/DL (0.2-1.0) Aspartate Amino Transf (AST/SGOT) 57 U/L (15-37) H Alanine Aminotransferase (ALT/SGPT) 31 U/L (12-78) Alkaline Phosphatase 101 U/L (46-116) Ammonia 23 umol/L (11-32) Troponin I 1.583 ng/mL (0.000-0.056) C-Reactive Protein, Quantitative 2.0 mg/dL (0.00-0.90) H Pro-B-Type Natriuretic Peptide 235 pg/mL (0-125) H Total Protein 6.7 G/DL (6.4-8.2) # Albumin 2.7 G/DL (3.4-5.0) L Globulin 4.0 g/dL Albumin/Globulin Ratio 0.7 (1.0-2.7) L Triglycerides Level 96 MG/DL (30-150) Cholesterol Level 119 MG/DL (< 200) LDL Cholesterol 74 mg/dL (<100) HDL Cholesterol 30 MG/DL (40-60) L Cholesterol/HDL Ratio 4.0 (3.3-4.4) Cortisol AM Sample Pending Arterial Blood pH 7.432 (7.350-7.450) Arterial Blood Partial Pressure CO2 29.8 mmHg (35.0-45.0) L Arterial Blood Partial Pressure O2 110.3 mmHg (75.0-100.0) H Arterial Blood HCO3 19.4 mmol/L (22.0-26.0) L Arterial Blood Oxygen Saturation 97.7 % (95-100) Arterial Blood Base Excess -3.7 (-2-2) L Bradly Test Positive Height (Feet): 5 Height (Inches): 3.00 Weight (Pounds): 149 Medications Current Medications Medications (Trade) Dose Ordered Sig/Yumiko Route PRN Reason Start Time Stop Time Status Last Admin Dose Admin Cefepime HCl 1 gm/ Dextrose 55 ml @ 110 mls/hr EVERY 12 HOURS IVPB 10/06/18 23:00 10/13/18 22:59 10/07/18 09:21 Clonidine HCl (Catapres Tab) 0.1 mg Q4H PRN NG bp over 160 syst 10/07/18 14:45 11/06/18 14:44 Clopidogrel Bisulfate (Plavix) 75 mg DAILY NG 10/07/18 13:00 11/06/18 12:59 10/07/18 16:22 Dextrose/ Electrolytes 1,000 ml @ 50 mls/hr Q20H IV 10/07/18 13:30 11/06/18 13:29 10/07/18 13:45 Diltiazem HCl (Cardizem) 60 mg EVERY 8 HOURS NG 10/07/18 14:00 11/06/18 13:59 10/07/18 16:20 Folic Acid (Folate) 5 mg DAILY NG 10/07/18 12:45 11/06/18 12:44 10/07/18 16:19 Metronidazole 100 ml @ 100 mls/hr Q6HR IVPB 10/06/18 22:00 10/13/18 21:59 10/07/18 11:56 Nitroglycerin (Ntg) 1 patch Q24H TDERMAL 10/07/18 12:45 11/06/18 12:44 10/07/18 13:45 Pantoprazole (Protonix) 40 mg EVERY 12 HOURS IVP 10/06/18 21:00 11/05/18 20:59 10/07/18 09:21 Vancomycin HCl (Vanco rx to dose) 1 ea DAILY PRN MISC Per rx protocol 10/06/18 15:15 11/05/18 15:14 Vancomycin HCl 1 gm/Dextrose 275 ml @ 183.708 mls/hr Q12HR@0400,1600 IVPB 10/07/18 04:00 10/12/18 03:59 10/07/18 16:24 Assessment/Plan Assessment/Plan: Hematology Consultation Chief Complaint: Altered Level of Consciousness Source: Medical Record, EMS REQ : Laura Main DOS: 10/07/18 ID 67y old female presents with altered level of consciousness for one hour. She has a history in the past of being post cardiac arrest in drug abuse. There is no axis to drugs at the facility apparently. Paramedics found her with good blood pressure however the last blood pressure the obtained was 79 [address] entry[address] An Accu-Chek in the feels 1:30. Apparently has been admitted at [facility] for similar. Not certain of dx. Dr. Garcia provided records from [facility]. Apparently she had a similar presentation but was febrile and had a respiratory infection. She responded to Narcan and apparently did not need intubation at that time. No further history is obtainable. Noted to be severly anemic and heme was contacted to eval Coded Allergies: ASPIRIN (Verified Allergy, Unknown, 10/06/18) PENICILLINS (Unverified Allergy, Unknown, 10/06/18) Uncoded Allergies: PENICILLIN (Allergy, Unknown, 10/06/18) Limited by: medical condition Past Medical History: see triage record, old chart reviewed Social History: Denies: alcohol use - in past, drug use - in past Social History Narrative SNF Reviewed Nursing Documentation: PMH: Agreed; PSxH: Agreed Review of Systems: limited PE Vital Signs Date Time Temp Pulse Resp B/P (MAP) Pulse Ox O2 Delivery O2 Flow Rate FiO2 10/07/18 13:26 98.1 89 26 135/109 (118) 98 Simple Mask 15.0 Gen: reviewed, abnormal General Appearance: non-toxic, Stupor Head: normocephalic, atraumatic Eyes: bilateral eye normal inspection, bilateral eye PERRL - pinpoint ENT: moist mucus membranes - Minimal gag present Neck: supple Respiratory: decreased breath sounds, other - Poor tidal volume Cardiovascular: normal peripheral pulses, regular rate, rhythm, no edema Gi: non tender, decreased bowel sounds Genitourinary: normal inspection Musculoskeletal: other - Flaccid Psychiatric: other - Stupor Skin: warm/dry, cyanosis Active Scripts Medications Dose Route/Sig Max Daily Dose Days Date Category Acetaminophen 500 Mg Tablet 650 Mg ORAL Q4H 10/06/18 Reported Valley 5-325* (Acetaminophen/Hydrocodone Bitart) 1 Each Tablet 1 Tab ORAL Q6H PRN 10/06/18 Reported Pantoprazole 20 Mg Tablet.dr 40 Mg ORAL EVERY 12 HOURS 10/06/18 Reported Risperidone 1 Mg Tablet 1 Mg ORAL 10/06/18 Reported Hydrochlorothiazide* (Hydrochlorothiazide) 12.5 Mg Capsule 12.5 Mg ORAL DAILY 10/06/18 Reported Lasix* (Furosemide) 20 Mg Tablet 20 Mg ORAL DAILY 10/06/18 Reported Potassium Chloride 20 Meq Tablet.er 10 Meq PO 10/06/18 Reported Vitamin D* (Cholecalciferol (Vitamin D3)*) 1,000 Unit Tablet 2,000 Units ORAL DAILY 10/06/18 Reported Atorvastatin Calcium* (Atorvastatin Calcium) 20 Mg Tablet 10 Mg ORAL BEDTIME 10/06/18 Reported Allopurinol* (Allopurinol) 100 Mg Tablet 100 Mg ORAL DAILY 10/06/18 Reported Gabapentin* (Gabapentin) 300 Mg Capsule 300 Mg ORAL BEDTIME 10/06/18 Reported Ramipril* (Ramipril) 5 Mg Capsule 5 Mg ORAL DAILY 10/06/18 Reported Lactulose* (Lactulose) 20 Gm/30 Ml Solution 30 Ml ORAL 10/06/18 Reported Laboratory Tests Test 10/07/18 04:00 10/07/18 10:05 White Blood Count 15.7 K/UL (4.8-10.8) #H Red Blood Count 3.93 M/UL (4.20-5.40) L Hemoglobin 12.0 G/DL (12.0-16.0) # Hematocrit 34.9 % (37.0-47.0) #L Mean Corpuscular Volume 89 FL (80-99) Mean Corpuscular Hemoglobin 30.5 PG (27.0-31.0) Mean Corpuscular Hemoglobin Concent 34.2 G/DL (32.0-36.0) Red Cell Distribution Width 12.0 % (11.6-14.8) Platelet Count 243 K/UL (150-450) # Mean Platelet Volume 7.0 FL (6.5-10.1) Neutrophils (%) (Auto) 75.4 % (45.0-75.0) H Lymphocytes (%) (Auto) 14.7 % (20.0-45.0) L Monocytes (%) (Auto) 7.4 % (1.0-10.0) Eosinophils (%) (Auto) 1.3 % (0.0-3.0) Basophils (%) (Auto) 1.2 % (0.0-2.0) Sodium Level 136 MMOL/L (136-145) Potassium Level 3.9 MMOL/L (3.5-5.1) Chloride Level 103 MMOL/L (98-107) Carbon Dioxide Level 21 MMOL/L (21-32) Anion Gap 12 mmol/L (5-15) Blood Urea Nitrogen 12 mg/dL (7-18) Creatinine 1.0 MG/DL (0.55-1.30) # Estimat Glomerular Filtration Rate > 60 mL/min (>60) Glucose Level 119 MG/DL (74-106) H Hemoglobin A1c 5.6 % (4.3-6.0) Uric Acid 6.3 MG/DL (2.6-7.2) Calcium Level 10.8 MG/DL (8.5-10.1) #H Ionized Calcium (Measured) 1.31 mmol/L (1.10-1.35) Phosphorus Level 3.4 MG/DL (2.5-4.9) Magnesium Level 1.1 MG/DL (1.8-2.4) L Total Bilirubin 0.5 MG/DL (0.2-1.0) Aspartate Amino Transf (AST/SGOT) 57 U/L (15-37) H Alanine Aminotransferase (ALT/SGPT) 31 U/L (12-78) Alkaline Phosphatase 101 U/L (46-116) Ammonia 23 umol/L (11-32) Troponin I 1.583 ng/mL (0.000-0.056) C-Reactive Protein, Quantitative 2.0 mg/dL (0.00-0.90) H Pro-B-Type Natriuretic Peptide 235 pg/mL (0-125) H Total Protein 6.7 G/DL (6.4-8.2) # Albumin 2.7 G/DL (3.4-5.0) L Globulin 4.0 g/dL Albumin/Globulin Ratio 0.7 (1.0-2.7) L Triglycerides Level 96 MG/DL (30-150) Cholesterol Level 119 MG/DL (< 200) LDL Cholesterol 74 mg/dL (<100) HDL Cholesterol 30 MG/DL (40-60) L Cholesterol/HDL Ratio 4.0 (3.3-4.4) Cortisol AM Sample Pending Arterial Blood pH 7.432 (7.350-7.450) Arterial Blood Partial Pressure CO2 29.8 mmHg (35.0-45.0) L Arterial Blood Partial Pressure O2 110.3 mmHg (75.0-100.0) H Arterial Blood HCO3 19.4 mmol/L (22.0-26.0) L Arterial Blood Oxygen Saturation 97.7 % (95-100) Arterial Blood Base Excess -3.7 (-2-2) L Bradly Test Positive Laboratory Tests Test 10/06/18 13:45 10/06/18 13:55 10/06/18 14:55 10/06/18 16:37 Arterial Blood pH 7.425 (7.350-7.450) 7.431 (7.350-7.450) Arterial Blood Partial Pressure CO2 38.1 mmHg (35.0-45.0) 32.2 mmHg (35.0-45.0) L Arterial Blood Partial Pressure O2 48.6 mmHg (75.0-100.0) 129.0 mmHg (75.0-100.0) H Arterial Blood HCO3 24.4 mmol/L (22.0-26.0) 20.9 mmol/L (22.0-26.0) L Arterial Blood Oxygen Saturation 81.1 % (95-100) *L 98.1 % (95-100) Arterial Blood Base Excess 0.2 (-2-2) -2.5 (-2-2) L Bradly Test Positive Positive White Blood Count 5.9 K/UL (4.8-10.8) Red Blood Count 2.35 M/UL (4.20-5.40) L Hemoglobin 7.0 G/DL (12.0-16.0) L Hematocrit 22.0 % (37.0-47.0) L Mean Corpuscular Volume 94 FL (80-99) Mean Corpuscular Hemoglobin 30.0 PG (27.0-31.0) Mean Corpuscular Hemoglobin Concent 32.0 G/DL (32.0-36.0) Red Cell Distribution Width 12.4 % (11.6-14.8) Platelet Count 140 K/UL (150-450) L Mean Platelet Volume 7.7 FL (6.5-10.1) Neutrophils (%) (Auto) % (45.0-75.0) Lymphocytes (%) (Auto) % (20.0-45.0) Monocytes (%) (Auto) % (1.0-10.0) Eosinophils (%) (Auto) % (0.0-3.0) Basophils (%) (Auto) % (0.0-2.0) Differential Total Cells Counted 100 Neutrophils % (Manual) 74 % (45-75) Lymphocytes % (Manual) 17 % (20-45) L Monocytes % (Manual) 6 % (1-10) Eosinophils % (Manual) 2 % (0-3) Basophils % (Manual) 1 % (0-2) Band Neutrophils 0 % (0-8) Platelet Estimate Decreased L Platelet Morphology Normal Hypochromasia 2+ Anisocytosis 1+ Sodium Level 145 MMOL/L (136-145) Potassium Level 3.1 MMOL/L (3.5-5.1) L Chloride Level 117 MMOL/L (98-107) H Carbon Dioxide Level 18 MMOL/L (21-32) L Anion Gap 10 mmol/L (5-15) Blood Urea Nitrogen 9 mg/dL (7-18) Creatinine 0.5 MG/DL (0.55-1.30) L Estimate Glomerular Filtration Rate > 60 mL/min (>60) Glucose Level 77 MG/DL (74-106) Lactic Acid Level 1.50 mmol/L (0.4-2.0) Calcium Level 5.0 MG/DL (8.5-10.1) *L Iron Level 26 ug/dL (50-175) L Total Iron Binding Capacity 111 ug/dL (250-450) L Percent Iron Saturation 23 % (15-50) Unsaturated Iron Binding 85 ug/dL (112-346) L Ferritin 178 NG/ML (8-388) Total Bilirubin 0.2 MG/DL (0.2-1.0) Aspartate Amino Transferase (AST) 33 U/L (15-37) Alanine Aminotransferase (ALT) 13 U/L (12-78) Alkaline Phosphatase 39 U/L (46-116) L Ammonia 12 umol/L (11-32) Total Creatine Kinase 17 U/L (26-308) L Troponin I 0.042 ng/mL (0.000-0.056) Total Protein 2.8 G/DL (6.4-8.2) L Albumin 1.0 G/DL (3.4-5.0) L Globulin 1.8 g/dL Albumin/Globulin Ratio 0.6 (1.0-2.7) L Vitamin B12 Level 404 PG/ML (193-986) Folate 3.3 NG/ML (8.6-58.9) L Thyroid Stimulating Hormone (TSH) 2.756 uiU/mL (0.358-3.740) Salicylates Level 0.3 ug/mL (2.8-20) L Acetaminophen Level 17 MCG/ML (10-30) Serum Alcohol < 3 mg/dL Urine Color Pale yellow Urine Appearance Clear Urine pH 7 (4.5-8.0) Urine Specific Harlan 1.005 (1.005-1.035) Urine Protein Negative (NEGATIVE) Urine Glucose (UA) Negative (NEGATIVE) Urine Ketones 1+ (NEGATIVE) H Urine Blood 1+ (NEGATIVE) H Urine Nitrite Negative (NEGATIVE) Urine Bilirubin Negative (NEGATIVE) Urine Urobilinogen Normal MG/DL (0.0-1.0) Urine Leukocyte Esterase 1+ (NEGATIVE) H Urine RBC 2-4 /HPF (0 - 2) H Urine WBC 2-4 /HPF (0 - 2) Urine Squamous Epithelial Cells Few /LPF (NONE/OCC) Urine Bacteria Few /HPF (NONE) Urine Opiates Screen Positive (NEGATIVE) H Urine Barbiturates Screen Negative (NEGATIVE) Phencyclidine (PCP) Screen Negative (NEGATIVE) Urine Amphetamines Screen Negative (NEGATIVE) Urine Benzodiazepines Screen Negative (NEGATIVE) Urine Cocaine Screen Negative (NEGATIVE) Urine Marijuana (THC) Screen Negative (NEGATIVE) Assessment and Recs: # Anemia of chronic disease due to underlying chronic medical issues, multifactorial --> Anemia w/u will order if hgb drops, rule out gi bleed --> No evidence of hemolysis is noted, peripheral smear has been reviewed. --> Hgb goal >7. Transfuse prn. --> Epogen or iron at this time is not particularly indicated --> Medications have been reviewed # Leukocytosis/elevated white blood cell count, unspecified likely related to underlying stress reaction, smoking v more likely infection --> have reviewed peripheral smear and bandemia/neutrophilia noted, lactic acid is wnl --> continue antibiotics as needed, imaging reviewed --> monitor for resolution # Altered level of consciousness --> neuro consulted, r/o stroke v other cause # Respiratory failure s/p intubation --> as per pulm, in icu # Right middle lobe pneumonia on imaging --> on abx # Status post cardiac arrest The timing of this note does not necessarily reflect the time of the patient was seen. Greatly appreciate consultation! Roberto Florence MD October 07, 2018 17:44
--- NOTE | 2018-10-07 19:00 | NUR ---
NURSE NOTES: Received pt and change of shift report from Estiven HESTER. Pt is awake, opens eyes to voice/name, able to follow with eyes, however uncooperative. Pt is attempting to pull out IV lines and ET tube despite reorientation attempts. Currently on bilateral soft wrist restraints; skin integrity within normal limits at restraint site. Pt is intubated, ETT 7.5 18cm at mid-lipline, with vent settings of AC12, VT500, Peep 5, FIO2 28% with 99% O2sat. Diminished lung sounds. glass carrier displays NSR with heart rate fluctuating from upper 80's to 90's. Currently NPO. Abdomen is large/round, soft/nontender to touch, with hypoactive bowel sounds present in all quadrants. Jorge catheter in place, draining clear/yellow urine. Skin is intact, however has brown discoloration on sacrum, and old/healed incisional scar on mid-abdomen and RLQ. Peripheral IV access on right FA #20G and left AC #20G, infusing D5 0.45%NS with KCL 40meq at 50mL/hour. Bed is locked with three side rails up and call light within reach. Will continue to monitor and follow plan of care per MD orders and protocol.
--- NOTE | 2018-10-07 19:30 | Progress Note ---
DATE: 10/07/2018 SUBJECTIVE: A 67 years old female came with acute respiratory failure and encephalopathy. The patient currently more awake, alert, intubated, tolerating and weaning trials. Her blood pressure was slightly high earlier, but currently is better. OBJECTIVE: VITAL SIGNS: Current blood pressure 109/73, pulse 105, respirations 18, saturation 100%. SKIN: Good skin turgor. HEENT: NAD. CHEST: Bilateral decreased breath sounds. Few crackles. CARDIOVASCULAR: Regular rhythm. No gallop. No murmur. Tachycardia. ABDOMEN: Soft. Positive bowel sounds. GENITOURINARY: Deferred. EXTREMITIES: No CCE. NEUROLOGICAL: The patient is moving and opens her eyes to try to communicate. LABORATORY AND DIAGNOSTIC DATA: Not available. Chest x-ray results showing possible pneumonia, but results are pending. CT head is negative. ASSESSMENT: 1. Altered mental status. 2. Encephalopathy. 3. Possible aspiration pneumonia. 4. Encephalopathy. 5. Hypertension. 6. Renal insufficiency. PLAN: Her EKG showing nonspecific ST and T-wave changes, slightly tachycardia. We will currently continue IV fluid, NPO, NG tube, and continue Ativan p.r.n., bronchodilator treatments, weaning protocols. I discussed with Dr. Garcia for Pulmonary consult and Dr. Gutierrez for Nephrology consult. Discussed with also charge nurse in ICU. We will this time. Demario Main M.D. DR: Nato JOB#: [id number] CC:
--- NOTE | 2018-10-07 19:34 | NUR ---
HAND-OFF: Change of shift report given to Jason HESTER. Pt is resting in stable condition. Endorsed plan of care.
--- NOTE | 2018-10-07 20:00 | NUR ---
NURSE NOTES: Patient repositioned and suctioned. Oral care was provided. Patient is awake, oriented to name, place, and purpose. Reposive to commands. Patient on bilateral soft wrist restraints, patient has bilateral upper extremity good strength 5/5. No acute distress.
--- NOTE | 2018-10-07 22:00 | NUR ---
NURSE NOTES: Patient repositioned and suctioned. SR on the monitor in the 80s and 90s. Skin remains intact. IV fluids running. BP stable. Spo2 100%.
[2018-10-08] VITALS (23 sets, daily range): BP systolic 110–172; BP diastolic 61–100
--- NOTE | 2018-10-08 | NUR ---
NURSE NOTES: Patient awake and oriented. Patient is slightly agitated wanting to leave. However vitals are stable. NO acute respiratory distress. Afebrile.
--- NOTE | 2018-10-08 | NUR ---
NURSE NOTES:Awake at this time but incomprehensible. VSS
--- NOTE | 2018-10-08 02:00 | NUR ---
NURSE NOTES: Patient repositioned and suctioned. Vitals remains stable. NAD at this time. No new changes.
[2018-10-08] MEDS: D5 1/2NS w/KCl 40meq 1000ml 1,000 ML IV SCH (02:38)
--- NOTE | 2018-10-08 03:00 | NUR ---
NURSE NOTES: Vanco trough drawn and sent to lab. Patient awake and is stable.
--- NOTE | 2018-10-08 04:00 | NUR ---
NURSE NOTES: Patient repositioned and cleaned. AM lab draw done, oral suctioned and oral care provided, No fevers. Patient can become agitated and non-complaint with care. No acute distress at this time. Will continue to monitor.
[2018-10-08 04:41] LABS: BASOPHILS % (AUTO) 0.9 % (0.0-2.0); HEMATOCRIT 32.1 % (37.0-47.0); LYMPHOCYTES % (AUTO) 15.7 % (20.0-45.0); MEAN CORPUSCULAR VOLUME 90 FL (80-99); MONOCYTES % (AUTO) 10.4 % (1.0-10.0); PLATELET COUNT 226 K/UL (150-450); RED BLOOD COUNT 3.56 M/UL (4.20-5.40); WHITE BLOOD COUNT 12.7 K/UL (4.8-10.8)
[2018-10-08 04:58] LABS: ALANINE AMINOTRANSFERASE 22 U/L (12-78); ALBUMIN 2.5 G/DL (3.4-5.0); ALBUMIN/GLOBULIN RATIO 0.7 (1.0-2.7); ALKALINE PHOSPHATASE 94 U/L (46-116); ANION GAP 10 mmol/L (5-15); ASPARTATE AMINO TRANSFERASE 39 U/L (15-37); BILIRUBIN,TOTAL 0.6 MG/DL (0.2-1.0); BLOOD UREA NITROGEN 7 mg/dL (7-18); CALCIUM 9.7 MG/DL (8.5-10.1); CARBON DIOXIDE 20 MMOL/L (21-32); CHLORIDE 103 MMOL/L (98-107); CREATININE 0.9 MG/DL (0.55-1.30); POTASSIUM 4.2 MMOL/L (3.5-5.1); SODIUM 133 MMOL/L (136-145)
[2018-10-08 05:07] LABS: PHOSPHORUS 2.7 MG/DL (2.5-4.9)
[2018-10-08] MEDS: Vancomycin 750mg/NS 275ml IVPB SCH ×4 (05:58→17:00)
[2018-10-08] MEDS: dilTIAZem HCl 60mg tab NG SCH ×3 (05:58→22:19)
--- NOTE | 2018-10-08 06:00 | NUR ---
NURSE NOTES: Repositioned and suctioned. Vitals remains stable, NAD. Patient is awake and oriented. No acute events overnight.
--- NOTE | 2018-10-08 07:10 | NUR ---
RESPIRATORY- Received Patient on Vent settings ACVC RR 12, VT 500, FIO2 28%, PEEP +5. Patient is intubated with 7.5 ETT at 18 cm at the lip, secured with anchorfast. Bilateral rhonchi breath sounds heard throughout lung novoa. Suctioned minimal amounts of thin clear secretions. Alarms are on and audible. Vent plugged into red outlet. Will continue to closely monitor throughout the day.
--- NOTE | 2018-10-08 07:15 | NUR ---
NURSE NOTES: Received pt from KACIE Gomez. patient is alert, awake and able to nod for yes or no. Restless, pulling on restraints. No PRN Ativan and patient is to be weaned today. Bilateral pupils equal and reactive to light. Orally intubated with ETT 7.5/18cm at lip line, vent settings: AC12/TV500/28%/PEEP5, SPo2 97%, RR 25. Bilateral breath sounds diminished with rhonchi. Bilateral soft wrist restraints for impulsiveness and patient safety. OGT clamped and NPO. Repositioned as requested. NSR on quality assurance monitor chassis, HR 94. Afebrile. Abdomen is round, soft and non-distended. Normoactive bowel sounds. LAC 20G and RFA 20G running D51/2NS w/40kcl@50cc/hr. Jorge catheter draining well to gravity. Bed locked, alarmed and in lowest position. Will continue plan of care.
--- NOTE | 2018-10-08 07:54 | NUR ---
Patient refused ABG and Weaning. I explained to her that in order to extubate we needed to wean and and do ABG but she still refused. KACIE BROWNLEE made aware. Will continue to monitor throughout the day.
[2018-10-08] MEDS: Pantoprazole Inj IVP SCH ×2 (08:32→21:15)
[2018-10-08] MEDS: Cefepime HCl 1 GM in D5W 55 ML IVPB SCH ×2 (08:35→21:15)
[2018-10-08] MEDS ORDERED: LORazepam Inj 2mg/ml 1ml IV PRN (08:45)
--- NOTE | 2018-10-08 08:45 | NUR ---
NURSE NOTES: Refused ABG and wean, pulling on restraints. reoriented patient, explained all procedures using therapeutic talk and reassurance but patient still refused. Notified Dr. Main, received orders for ativan 1mg q6hrs pRN for agitation. Will carry out orders. Addendum: 10/08/18 at 1357 by KEM WEBSTER RN d/c ativan per Dr. Garcia.
--- NOTE | 2018-10-08 09:13 | Pulmonology Progress Note ---
Assessment/Plan Assessment/Plan 1. Acute respiratory failure. 2. Altered mental status with history of hemorrhagic stroke. 3. Pneumonia right lower lobe. 4. Severe anemia. improving passed weaning trial w good RR and TV min secretions extubate disc w RN, RT Subjective Allergies: Coded Allergies: ASPIRIN (Verified Allergy, Unknown, 10/06/18) PENICILLINS (Unverified Allergy, Unknown, 10/06/18) Uncoded Allergies: PENICILLIN (Allergy, Unknown, 10/06/18) Objective Last 24 Hour Vital Signs Date Time Temp Pulse Resp B/P (MAP) Pulse Ox O2 Delivery O2 Flow Rate FiO2 10/08/18 09:00 100 21 124/83 (97) 97 10/08/18 08:34 92 13 28 10/08/18 08:00 89 10/08/18 08:00 28 10/08/18 08:00 Mechanical Ventilator 10/08/18 08:00 99.3 89 17 126/80 (95) 97 10/08/18 07:00 105 21 120/88 (99) 100 10/08/18 06:38 93 18 28 10/08/18 06:00 105 22 112/80 (91) 100 10/08/18 05:58 92 135/90 10/08/18 05:17 92 15 28 10/08/18 05:00 98 22 128/88 (101) 100 10/08/18 04:00 93 10/08/18 04:00 99.1 96 21 135/90 (105) 100 10/08/18 04:00 Mechanical Ventilator 10/08/18 04:00 28 10/08/18 03:00 85 14 172/100 (124) 100 10/08/18 02:58 86 16 28 10/08/18 02:00 83 16 110/75 (87) 100 10/08/18 01:12 95 16 28 10/08/18 01:00 89 18 122/85 (97) 100 10/08/18 00:00 Mechanical Ventilator 10/08/18 00:00 98.7 90 16 143/96 (112) 100 10/08/18 00:00 28 10/08/18 00:00 86 10/07/18 23:00 100 20 141/83 (102) 100 10/07/18 22:56 94 21 28 10/07/18 22:00 89 18 129/85 (100) 100 10/07/18 21:18 95 115/78 10/07/18 21:17 99 22 28 10/07/18 21:00 101 20 133/86 (102) 100 10/07/18 20:00 99.3 93 16 108/77 (87) 100 10/07/18 20:00 28 10/07/18 20:00 Mechanical Ventilator 10/07/18 20:00 97 10/07/18 19:00 95 20 115/78 (90) 100 10/07/18 18:50 97 21 28 10/07/18 18:00 88 18 109/70 (83) 100 10/07/18 17:16 89 18 28 10/07/18 17:00 96 18 111/71 (84) 100 10/07/18 16:20 101 135/84 10/07/18 16:00 28 10/07/18 16:00 98.4 104 18 135/84 (101) 100 10/07/18 16:00 Mechanical Ventilator 10/07/18 15:36 105 10/07/18 15:02 107 21 28 10/07/18 15:00 107 17 109/73 (85) 96 10/07/18 14:00 95 19 124/104 (111) 100 10/07/18 13:45 164/120 10/07/18 13:03 97 20 28 10/07/18 13:00 96 19 164/120 (135) 100 10/07/18 12:00 102 10/07/18 12:00 99.0 101 19 140/107 (118) 100 10/07/18 12:00 Mechanical Ventilator 10/07/18 12:00 28 10/07/18 11:08 110 23 28 28 10/07/18 11:00 111 17 121/77 (92) 100 10/07/18 10:00 109 17 165/108 (127) 99 Intake and Output 10/07/18 10/08/18 19:00 07:00 Intake Total 1289.916 ml 1657.5 ml Output Total 510 ml 945 ml Balance 779.916 ml 712.5 ml Intake Free Water 40 ml IV Total 1289.916 ml 1617.5 ml Output Urine Total 510 ml 945 ml Microbiology Date/Time Source Procedure Growth Status 10/06/18 14:10 Blood Blood Culture - Preliminary NO GROWTH AFTER 24 HOURS Resulted 5/25/19 13:55 Blood Blood Culture - Preliminary NO GROWTH AFTER 24 HOURS Resulted 10/06/18 15:26 Nasal Nares MRSA Culture - Final NO METHICILLIN RESISTANT STAPH AUREUS... Complete 10/06/18 15:26 Rectum VRE Culture - Final Enterococcus Faecium - Vre Complete 10/06/18 15:26 Rectum - Final NO CARBAPENEM-RESISTANT ENTEROBACTERI... Complete Laboratory Tests 10/07/18 10:05: Arterial Blood pH 7.432, Arterial Blood Partial Pressure CO2 29.8L, Arterial Blood Partial Pressure O2 110.3H, Arterial Blood HCO3 19.4L, Arterial Blood Oxygen Saturation 97.7, Arterial Blood Base Excess -3.7L, Bradly Test Positive 10/08/18 03:00: Sodium Level 133L, Potassium Level 4.2, Chloride Level 103, Carbon Dioxide Level 20L, Anion Gap 10, Blood Urea Nitrogen 7, Creatinine 0.9, Estimat Glomerular Filtration Rate > 60, Glucose Level 117H, Calcium Level 9.7, Total Bilirubin 0.6, Aspartate Amino Transf (AST/SGOT) 39H, Alanine Aminotransferase ( ALT/SGPT) 22, Alkaline Phosphatase 94, Total Protein 6.2L, Albumin 2.5L, Globulin 3.7, Albumin/Globulin Ratio 0.7L, Vancomycin Level Trough 22.2H 10/08/18 04:00: White Blood Count 12.7H, Red Blood Count 3.56L, Hemoglobin 11.0L, Hematocrit 32.1L, Mean Corpuscular Volume 90, Mean Corpuscular Hemoglobin 30.8, Mean Corpuscular Hemoglobin Concent 34.2, Red Cell Distribution Width 12.0, Platelet Count 226, Mean Platelet Volume 7.3, Neutrophils (%) (Auto) 70.0, Lymphocytes (% ) (Auto) 15.7L, Monocytes (%) (Auto) 10.4H, Eosinophils (%) (Auto) 3.0, Basophils (%) (Auto) 0.9, Phosphorus Level 2.7, Magnesium Level 2.0, Troponin I 0.008, C-Reactive Protein, Quantitative 3.3H, Pro-B-Type Natriuretic Peptide 693H Current Medications Medications (Trade) Dose Ordered Sig/Yumiko Route PRN Reason Start Time Stop Time Status Last Admin Dose Admin Cefepime HCl 1 gm/ Dextrose 55 ml @ 110 mls/hr EVERY 12 HOURS IVPB 10/06/18 23:00 10/13/18 22:59 10/08/18 08:35 Clonidine HCl (Catapres Tab) 0.1 mg Q4H PRN NG bp over 160 syst 10/07/18 14:45 11/06/18 14:44 Clopidogrel Bisulfate (Plavix) 75 mg DAILY NG 10/07/18 13:00 11/06/18 12:59 10/08/18 08:32 Dextrose/ Electrolytes 1,000 ml @ 50 mls/hr Q20H IV 10/07/18 13:30 11/06/18 13:29 10/08/18 02:38 Diltiazem HCl (Cardizem) 60 mg EVERY 8 HOURS NG 10/07/18 14:00 11/06/18 13:59 10/08/18 05:58 Folic Acid (Folate) 5 mg DAILY NG 10/07/18 12:45 11/06/18 12:44 10/08/18 08:32 Metronidazole 100 ml @ 100 mls/hr Q6HR IVPB 10/06/18 22:00 10/13/18 21:59 10/08/18 08:32 Nitroglycerin (Ntg) 1 patch Q24H TDERMAL 10/07/18 12:45 11/06/18 12:44 10/07/18 13:45 Pantoprazole (Protonix) 40 mg EVERY 12 HOURS IVP 10/06/18 21:00 11/05/18 20:59 10/08/18 08:32 Vancomycin HCl (Vanco rx to dose) 1 ea DAILY PRN MISC Per rx protocol 10/06/18 15:15 11/05/18 15:14 Vancomycin HCl 750 mg/Sodium Chloride 275 ml @ 183.333 mls/hr Q12H IVPB 10/08/18 05:00 10/13/18 04:59 10/08/18 05:58 Fernando Garcia MD October 08, 2018 09:13
--- NOTE | 2018-10-08 09:21 | NUR ---
NURSE NOTES: Patient was extubated per Dr. Garcia. Maryellen Rodrigues, RT at bedside. Tolerated extubation well. No stridor or labored/uneven breathing. Placed on 4LNC, Spo2 95%, RR 24.
--- NOTE | 2018-10-08 10:21 | Diagnostic Imaging Report ---
EXAM: XR Chest, 1 View CLINICAL HISTORY: SOB TECHNIQUE: Frontal view of the chest. COMPARISON: Chest x-ray 10/07/18 1057 FINDINGS: Lungs: Hypoventilatory lungs. Bibasilar lung atelectasis and airspace disease. Pleural space: Unremarkable. No pneumothorax. Heart: Unremarkable. No cardiomegaly. Mediastinum: Unremarkable. Bones/joints: Thoracolumbar scoliosis. Tubes, lines and devices: Interval placement of NG tube traverses the diaphragm tip is not visualized. Stable endotracheal tube. Upper abdomen: Surgical clips upper abdomen. IMPRESSION: 1. Interval placement of NG tube traverses the diaphragm tip is not visualized. Stable endotracheal tube. 2. Hypoventilatory lungs. Bibasilar lung atelectasis and airspace disease, likely similar given differences in technique/rotated film..
--- NOTE | 2018-10-08 10:43 | Nephrology Progress Note ---
Assessment/Plan Problem List: (1) Respiratory failure (2) Hypocalcemia (3) Right middle lobe pneumonia (4) Hypertension (5) Elevated troponin I level Assessment acute respiratory failure- Severe Anemia doubt accuracy Severe Hypocalcemia doubt accuracy Severe hypoalbuminemia doubt accuracy ? sepsis elevated troponin HTN OOC Plan being extubated lindsay urine studies monitor lytes and chemistries folic acid NG Nitrate , pavix ( ASA Allergy) Clonidin PRN Cardiazem for high BP start feeding mag IV Subjective ROS Limited/Unobtainable: No Constitutional: Reports: malaise Objective Objective Last 24 Hour Vital Signs Date Time Temp Pulse Resp B/P (MAP) Pulse Ox O2 Delivery O2 Flow Rate FiO2 10/08/18 09:34 96 Nasal Cannula 4.0 36 10/08/18 09:33 Nasal Cannula 4.0 36 10/08/18 09:27 4.0 10/08/18 09:00 100 21 124/83 (97) 97 10/08/18 08:34 92 13 28 10/08/18 08:00 89 10/08/18 08:00 28 10/08/18 08:00 Mechanical Ventilator 10/08/18 08:00 99.3 89 17 126/80 (95) 97 10/08/18 07:00 105 21 120/88 (99) 100 10/08/18 06:38 93 18 28 10/08/18 06:00 105 22 112/80 (91) 100 10/08/18 05:58 92 135/90 10/08/18 05:17 92 15 28 10/08/18 05:00 98 22 128/88 (101) 100 10/08/18 04:00 93 10/08/18 04:00 99.1 96 21 135/90 (105) 100 10/08/18 04:00 Mechanical Ventilator 10/08/18 04:00 28 10/08/18 03:00 85 14 172/100 (124) 100 10/08/18 02:58 86 16 28 10/08/18 02:00 83 16 110/75 (87) 100 10/08/18 01:12 95 16 28 10/08/18 01:00 89 18 122/85 (97) 100 10/08/18 00:00 Mechanical Ventilator 10/08/18 00:00 98.7 90 16 143/96 (112) 100 10/08/18 00:00 28 10/08/18 00:00 86 10/07/18 23:00 100 20 141/83 (102) 100 10/07/18 22:56 94 21 28 10/07/18 22:00 89 18 129/85 (100) 100 10/07/18 21:18 95 115/78 10/07/18 21:17 99 22 28 10/07/18 21:00 101 20 133/86 (102) 100 10/07/18 20:00 99.3 93 16 108/77 (87) 100 10/07/18 20:00 28 10/07/18 20:00 Mechanical Ventilator 10/07/18 20:00 97 10/07/18 19:00 95 20 115/78 (90) 100 10/07/18 18:50 97 21 28 10/07/18 18:00 88 18 109/70 (83) 100 10/07/18 17:16 89 18 28 10/07/18 17:00 96 18 111/71 (84) 100 10/07/18 16:20 101 135/84 10/07/18 16:00 28 10/07/18 16:00 98.4 104 18 135/84 (101) 100 10/07/18 16:00 Mechanical Ventilator 10/07/18 15:36 105 10/07/18 15:02 107 21 28 10/07/18 15:00 107 17 109/73 (85) 96 10/07/18 14:00 95 19 124/104 (111) 100 10/07/18 13:45 164/120 10/07/18 13:03 97 20 28 10/07/18 13:00 96 19 164/120 (135) 100 10/07/18 12:00 102 10/07/18 12:00 99.0 101 19 140/107 (118) 100 10/07/18 12:00 Mechanical Ventilator 10/07/18 12:00 28 10/07/18 11:08 110 23 28 28 10/07/18 11:00 111 17 121/77 (92) 100 Intake and Output 10/07/18 10/08/18 19:00 07:00 Intake Total 1289.916 ml 1657.5 ml Output Total 510 ml 945 ml Balance 779.916 ml 712.5 ml Intake Free Water 40 ml IV Total 1289.916 ml 1617.5 ml Output Urine Total 510 ml 945 ml Laboratory Tests 10/08/18 03:00: Sodium Level 133L, Potassium Level 4.2, Chloride Level 103, Carbon Dioxide Level 20L, Anion Gap 10, Blood Urea Nitrogen 7, Creatinine 0.9, Estimat Glomerular Filtration Rate > 60, Glucose Level 117H, Calcium Level 9.7, Total Bilirubin 0.6, Aspartate Amino Transf (AST/SGOT) 39H, Alanine Aminotransferase ( ALT/SGPT) 22, Alkaline Phosphatase 94, Total Protein 6.2L, Albumin 2.5L, Globulin 3.7, Albumin/Globulin Ratio 0.7L, Vancomycin Level Trough 22.2H 10/08/18 04:00: White Blood Count 12.7H, Red Blood Count 3.56L, Hemoglobin 11.0L, Hematocrit 32.1L, Mean Corpuscular Volume 90, Mean Corpuscular Hemoglobin 30.8, Mean Corpuscular Hemoglobin Concent 34.2, Red Cell Distribution Width 12.0, Platelet Count 226, Mean Platelet Volume 7.3, Neutrophils (%) (Auto) 70.0, Lymphocytes (% ) (Auto) 15.7L, Monocytes (%) (Auto) 10.4H, Eosinophils (%) (Auto) 3.0, Basophils (%) (Auto) 0.9, Phosphorus Level 2.7, Magnesium Level 2.0, Troponin I 0.008, C-Reactive Protein, Quantitative 3.3H, Pro-B-Type Natriuretic Peptide 693H Height (Feet): 5 Height (Inches): 3.00 Weight (Pounds): 149 General Appearance: no apparent distress EENT: other - being extubated Cardiovascular: tachycardia Respiratory/Chest: decreased breath sounds Abdomen: soft Gregory Gutierrez MD October 08, 2018 10:43
--- NOTE | 2018-10-08 11:13 | NUR ---
NURSE NOTES: Physician orders Medication Administration Records NURSE NOTES: Turned and repositioned. Oral care given.
[2018-10-08] MEDS: Nitroglycerin Patch 0.4mg TDERMAL SCH (12:44)
--- NOTE | 2018-10-08 13:03 | Cardiac Electrophysiology PN ---
Subjective Subjective [id number] Objective Last 24 Hour Vital Signs Date Time Temp Pulse Resp B/P (MAP) Pulse Ox O2 Delivery O2 Flow Rate FiO2 10/08/18 12:44 126/76 10/08/18 12:00 99.2 98 16 126/76 (93) 95 10/08/18 12:00 Nasal Cannula 4.0 10/08/18 12:00 98 10/08/18 11:00 107 18 124/78 (93) 94 10/08/18 09:34 96 Nasal Cannula 4.0 36 10/08/18 09:33 Nasal Cannula 4.0 36 10/08/18 09:27 4.0 10/08/18 09:00 100 21 124/83 (97) 97 10/08/18 08:34 92 13 28 10/08/18 08:00 89 10/08/18 08:00 28 10/08/18 08:00 Mechanical Ventilator 10/08/18 08:00 99.3 89 17 126/80 (95) 97 10/08/18 07:00 105 21 120/88 (99) 100 10/08/18 06:38 93 18 28 10/08/18 06:00 105 22 112/80 (91) 100 10/08/18 05:58 92 135/90 10/08/18 05:17 92 15 28 10/08/18 05:00 98 22 128/88 (101) 100 10/08/18 04:00 93 10/08/18 04:00 99.1 96 21 135/90 (105) 100 10/08/18 04:00 Mechanical Ventilator 10/08/18 04:00 28 10/08/18 03:00 85 14 172/100 (124) 100 10/08/18 02:58 86 16 28 10/08/18 02:00 83 16 110/75 (87) 100 10/08/18 01:12 95 16 28 10/08/18 01:00 89 18 122/85 (97) 100 10/08/18 00:00 Mechanical Ventilator 10/08/18 00:00 98.7 90 16 143/96 (112) 100 10/08/18 00:00 28 10/08/18 00:00 86 10/07/18 23:00 100 20 141/83 (102) 100 10/07/18 22:56 94 21 28 10/07/18 22:00 89 18 129/85 (100) 100 10/07/18 21:18 95 115/78 10/07/18 21:17 99 22 28 10/07/18 21:00 101 20 133/86 (102) 100 10/07/18 20:00 99.3 93 16 108/77 (87) 100 10/07/18 20:00 28 10/07/18 20:00 Mechanical Ventilator 10/07/18 20:00 97 10/07/18 19:00 95 20 115/78 (90) 100 10/07/18 18:50 97 21 28 10/07/18 18:00 88 18 109/70 (83) 100 10/07/18 17:16 89 18 28 10/07/18 17:00 96 18 111/71 (84) 100 10/07/18 16:20 101 135/84 10/07/18 16:00 28 10/07/18 16:00 98.4 104 18 135/84 (101) 100 10/07/18 16:00 Mechanical Ventilator 10/07/18 15:36 105 10/07/18 15:02 107 21 28 10/07/18 15:00 107 17 109/73 (85) 96 10/07/18 14:00 95 19 124/104 (111) 100 10/07/18 13:45 164/120 Intake and Output 10/07/18 10/08/18 19:00 07:00 Intake Total 1289.916 ml 1657.5 ml Output Total 510 ml 945 ml Balance 779.916 ml 712.5 ml Intake Free Water 40 ml IV Total 1289.916 ml 1617.5 ml Output Urine Total 510 ml 945 ml Laboratory Tests Test 10/08/18 03:00 10/08/18 04:00 Sodium Level 133 MMOL/L (136-145) L Potassium Level 4.2 MMOL/L (3.5-5.1) Chloride Level 103 MMOL/L (98-107) Carbon Dioxide Level 20 MMOL/L (21-32) L Anion Gap 10 mmol/L (5-15) Blood Urea Nitrogen 7 mg/dL (7-18) Creatinine 0.9 MG/DL (0.55-1.30) Estimat Glomerular Filtration Rate > 60 mL/min (>60) Glucose Level 117 MG/DL (74-106) H Calcium Level 9.7 MG/DL (8.5-10.1) Total Bilirubin 0.6 MG/DL (0.2-1.0) Aspartate Amino Transf (AST/SGOT) 39 U/L (15-37) H Alanine Aminotransferase (ALT/SGPT) 22 U/L (12-78) Alkaline Phosphatase 94 U/L (46-116) Total Protein 6.2 G/DL (6.4-8.2) L Albumin 2.5 G/DL (3.4-5.0) L Globulin 3.7 g/dL Albumin/Globulin Ratio 0.7 (1.0-2.7) L Vancomycin Level Trough 22.2 ug/mL (5.0-12.0) H White Blood Count 12.7 K/UL (4.8-10.8) H Red Blood Count 3.56 M/UL (4.20-5.40) L Hemoglobin 11.0 G/DL (12.0-16.0) L Hematocrit 32.1 % (37.0-47.0) L Mean Corpuscular Volume 90 FL (80-99) Mean Corpuscular Hemoglobin 30.8 PG (27.0-31.0) Mean Corpuscular Hemoglobin Concent 34.2 G/DL (32.0-36.0) Red Cell Distribution Width 12.0 % (11.6-14.8) Platelet Count 226 K/UL (150-450) Mean Platelet Volume 7.3 FL (6.5-10.1) Neutrophils (%) (Auto) 70.0 % (45.0-75.0) Lymphocytes (%) (Auto) 15.7 % (20.0-45.0) L Monocytes (%) (Auto) 10.4 % (1.0-10.0) H Eosinophils (%) (Auto) 3.0 % (0.0-3.0) Basophils (%) (Auto) 0.9 % (0.0-2.0) Phosphorus Level 2.7 MG/DL (2.5-4.9) Magnesium Level 2.0 MG/DL (1.8-2.4) Troponin I 0.008 ng/mL (0.000-0.056) C-Reactive Protein, Quantitative 3.3 mg/dL (0.00-0.90) H Pro-B-Type Natriuretic Peptide 693 pg/mL (0-125) H Microbiology Date/Time Source Procedure Growth Status 10/06/18 14:10 Blood Blood Culture - Preliminary NO GROWTH AFTER 24 HOURS Resulted 10/06/18 13:55 Blood Blood Culture - Preliminary NO GROWTH AFTER 24 HOURS Resulted 10/06/18 15:26 Nasal Nares MRSA Culture - Final NO METHICILLIN RESISTANT STAPH AUREUS... Complete 10/06/18 15:26 Rectum VRE Culture - Final Enterococcus Faecium - Vre Complete 10/06/18 15:26 Rectum - Final NO CARBAPENEM-RESISTANT ENTEROBACTERI... Complete Nakul Calvert MD October 08, 2018 13:03
--- NOTE | 2018-10-08 13:17 | Hematology/Onc Progress Note ---
Assessment/Plan Assessment/Plan Assessment and Recs: # Anemia of chronic disease due to underlying chronic medical issues, multifactorial --> Anemia w/u will order if hgb drops, rule out gi bleed --> No evidence of hemolysis is noted, peripheral smear has been reviewed. --> Hgb goal >7. Transfuse prn. --> Epogen or iron at this time is not particularly indicated --> Medications have been reviewed --> trend hgb 7-->12-->11 (likely was lab error) # Leukocytosis/elevated white blood cell count, unspecified likely related to underlying stress reaction, smoking v more likely infection --> have reviewed peripheral smear and bandemia/neutrophilia noted, lactic acid is wnl --> continue antibiotics as needed, imaging reviewed --> monitor for resolution # Thrombocytopenia with a plt count 100s --> 130-->262k improved --> likely was reactive process # Altered level of consciousness --> neuro consulted, r/o stroke v other cause # Respiratory failure s/p intubation --> as per pulm, in icu --> extubated 10/08 # Right middle lobe pneumonia on imaging --> on abx # Status post cardiac arrest The timing of this note does not necessarily reflect the time of the patient was seen. Greatly appreciate consultation! Subjective HEENT: Denies: no symptoms, eye pain, blurred vision, tearing, double vision, ear pain, ear discharge, nose pain, nose congestion, throat pain, throat swelling, mouth pain, mouth swelling, other Cardiovascular: Denies: no symptoms, chest pain, edema, irregular heart rate, lightheadedness, palpitations, syncope, other Respiratory: Denies: no symptoms, cough, shortness of breath, SOB with excertion, SOB at rest, sputum, wheezing, other Genitourinary: Denies: no symptoms, burning, discharge, frequency, flank pain, hematuria, incontinence, pain, urgency, other Neurologic/Psychiatric: Denies: no symptoms, anxiety, depressed, emotional problems, headache, numbness, paresthesia, pre-existing deficit, seizure, tingling, tremors, weakness, other Endocrine: Denies: no symptoms, excessive sweating, flushing, intolerance to cold, intolerance to heat, increased hunger, increased thirst, increased urine, unexplained weight gain, unexplained weight loss, other Hematologic/Lymphatic: Denies: no symptoms, anemia, easy bleeding, easy bruising, adenopathy, other Allergies: Coded Allergies: ASPIRIN (Verified Allergy, Unknown, 10/06/18) PENICILLINS (Unverified Allergy, Unknown, 10/06/18) Uncoded Allergies: PENICILLIN (Allergy, Unknown, 10/06/18) Subjective 10/08: remains in the icu, refusing weaning, given ativan,cbc reviewed Objective Objective Current Medications Medications (Trade) Dose Ordered Sig/Yumiko Route PRN Reason Start Time Stop Time Status Last Admin Dose Admin Cefepime HCl 1 gm/ Dextrose 55 ml @ 110 mls/hr EVERY 12 HOURS IVPB 10/06/18 23:00 10/13/18 22:59 10/08/18 08:35 Clonidine HCl (Catapres Tab) 0.1 mg Q4H PRN NG bp over 160 syst 10/07/18 14:45 11/06/18 14:44 Clopidogrel Bisulfate (Plavix) 75 mg DAILY NG 10/07/18 13:00 11/06/18 12:59 10/08/18 08:32 Dextrose/ Electrolytes 1,000 ml @ 50 mls/hr Q20H IV 10/08/18 11:30 11/07/18 11:29 10/08/18 11:30 Diltiazem HCl (Cardizem) 60 mg EVERY 8 HOURS NG 10/07/18 14:00 11/06/18 13:59 10/08/18 05:58 Folic Acid (Folate) 5 mg DAILY NG 10/07/18 12:45 11/06/18 12:44 10/08/18 08:32 Metronidazole 100 ml @ 100 mls/hr Q6HR IVPB 10/06/18 22:00 10/13/18 21:59 10/08/18 08:32 Nitroglycerin (Ntg) 1 patch Q24H TDERMAL 10/07/18 12:45 11/06/18 12:44 10/08/18 12:44 Pantoprazole (Protonix) 40 mg EVERY 12 HOURS IVP 10/06/18 21:00 11/05/18 20:59 10/08/18 08:32 Vancomycin HCl (Vanco rx to dose) 1 ea DAILY PRN MISC Per rx protocol 10/06/18 15:15 11/05/18 15:14 Vancomycin HCl 750 mg/Sodium Chloride 275 ml @ 183.333 mls/hr Q12H IVPB 10/08/18 05:00 10/13/18 04:59 10/08/18 05:58 Last 24 Hour Vital Signs Date Time Temp Pulse Resp B/P (MAP) Pulse Ox O2 Delivery O2 Flow Rate FiO2 10/08/18 13:00 96 18 132/61 (84) 100 10/08/18 12:44 126/76 10/08/18 12:00 99.2 98 16 126/76 (93) 95 10/08/18 12:00 Nasal Cannula 4.0 10/08/18 12:00 98 10/08/18 11:00 107 18 124/78 (93) 94 10/08/18 09:34 96 Nasal Cannula 4.0 36 10/08/18 09:33 Nasal Cannula 4.0 36 10/08/18 09:27 4.0 10/08/18 09:00 100 21 124/83 (97) 97 10/08/18 08:34 92 13 28 10/08/18 08:00 89 10/08/18 08:00 28 10/08/18 08:00 Mechanical Ventilator 10/08/18 08:00 99.3 89 17 126/80 (95) 97 10/08/18 07:00 105 21 120/88 (99) 100 10/08/18 06:38 93 18 28 10/08/18 06:00 105 22 112/80 (91) 100 10/08/18 05:58 92 135/90 10/08/18 05:17 92 15 28 10/08/18 05:00 98 22 128/88 (101) 100 10/08/18 04:00 93 10/08/18 04:00 99.1 96 21 135/90 (105) 100 10/08/18 04:00 Mechanical Ventilator 10/08/18 04:00 28 10/08/18 03:00 85 14 172/100 (124) 100 10/08/18 02:58 86 16 28 10/08/18 02:00 83 16 110/75 (87) 100 10/08/18 01:12 95 16 28 10/08/18 01:00 89 18 122/85 (97) 100 10/08/18 00:00 Mechanical Ventilator 10/08/18 00:00 98.7 90 16 143/96 (112) 100 10/08/18 00:00 28 10/08/18 00:00 86 10/07/18 23:00 100 20 141/83 (102) 100 10/07/18 22:56 94 21 28 10/07/18 22:00 89 18 129/85 (100) 100 10/07/18 21:18 95 115/78 10/07/18 21:17 99 22 28 10/07/18 21:00 101 20 133/86 (102) 100 10/07/18 20:00 99.3 93 16 108/77 (87) 100 10/07/18 20:00 28 10/07/18 20:00 Mechanical Ventilator 10/07/18 20:00 97 10/07/18 19:00 95 20 115/78 (90) 100 10/07/18 18:50 97 21 28 10/07/18 18:00 88 18 109/70 (83) 100 10/07/18 17:16 89 18 28 10/07/18 17:00 96 18 111/71 (84) 100 10/07/18 16:20 101 135/84 10/07/18 16:00 28 10/07/18 16:00 98.4 104 18 135/84 (101) 100 10/07/18 16:00 Mechanical Ventilator 10/07/18 15:36 105 10/07/18 15:02 107 21 28 10/07/18 15:00 107 17 109/73 (85) 96 10/07/18 14:00 95 19 124/104 (111) 100 10/07/18 13:45 164/120 10/07/18 13:03 97 20 28 10/07/18 13:00 96 19 164/120 (135) 100 10/07/18 12:00 102 10/07/18 12:00 99.0 101 19 140/107 (118) 100 10/07/18 12:00 Mechanical Ventilator 10/07/18 12:00 28 10/07/18 11:08 110 23 28 28 10/07/18 11:00 111 17 121/77 (92) 100 10/07/18 10:00 109 17 165/108 (127) 99 10/07/18 09:06 98 25 28 28 10/07/18 09:05 10 10/07/18 09:00 106 19 164/105 (124) 100 10/07/18 08:00 28 10/07/18 08:00 97.3 96 19 163/102 (122) 100 10/07/18 08:00 Mechanical Ventilator 10/07/18 07:34 97 10/07/18 07:01 105 26 28 10/07/18 07:00 106 16 165/121 (136) 100 10/07/18 06:00 88 16 165/100 (121) 100 10/07/18 05:00 90 18 171/101 (124) 100 10/07/18 04:49 90 17 28 10/07/18 04:00 28 10/07/18 04:00 Mechanical Ventilator 10/07/18 04:00 88 10/07/18 04:00 99.6 85 18 120/104 (109) 100 10/07/18 03:15 95 19 28 10/07/18 03:00 90 16 136/92 (107) 100 10/07/18 02:00 88 15 124/93 (103) 100 10/07/18 01:00 90 17 110/88 (95) 100 10/07/18 00:58 100 18 28 10/07/18 00:00 67 10/07/18 00:00 98.7 105 22 120/95 (103) 100 10/07/18 00:00 28 10/07/18 00:00 Mechanical Ventilator 10/06/18 23:07 102 18 28 10/06/18 23:00 98 16 114/67 (83) 100 10/06/18 22:00 98 18 109/87 (94) 100 10/06/18 21:12 97 19 28 10/06/18 21:00 88 20 119/78 (92) 100 10/06/18 20:00 28 10/06/18 20:00 84 19 111/75 (87) 100 10/06/18 20:00 Mechanical Ventilator 10/06/18 19:00 99.3 86 19 125/86 (99) 100 10/06/18 18:47 85 20 28 10/06/18 18:45 28 10/06/18 18:10 96 10/06/18 18:00 Mechanical Ventilator 10/06/18 17:33 98.3 86 22 139/86 100 Mechanical Ventilator 28 10/06/18 17:09 88 20 28 10/06/18 17:07 98.4 87 18 125/91 100 Mechanical Ventilator 28 10/06/18 16:08 98.2 88 22 162/61 100 Mechanical Ventilator 15.0 30 10/06/18 15:48 89 22 30 10/06/18 14:15 89 24 98 Mechanical Ventilator 30 10/06/18 14:15 89 22 30 10/06/18 13:36 89 26 Room Air 10/06/18 13:26 98.1 89 26 135/109 (118) 98 Simple Mask 15.0 Intake and Output 10/07/18 10/08/18 18:59 06:59 Intake Total 1459.916 ml 1282.5 ml Output Total 495 ml 950 ml Balance 964.916 ml 332.5 ml Intake Free Water 40 ml IV Total 1459.916 ml 1242.5 ml Output Urine Total 495 ml 950 ml Labs Test 10/06/18 13:45 10/06/18 13:55 10/06/18 14:55 10/06/18 16:37 Arterial Blood pH 7.425 (7.350-7.450) 7.431 (7.350-7.450) Arterial Blood Partial Pressure CO2 38.1 mmHg (35.0-45.0) 32.2 mmHg (35.0-45.0) Arterial Blood Partial Pressure O2 48.6 mmHg (75.0-100.0) 129.0 mmHg (75.0-100.0) Arterial Blood HCO3 24.4 mmol/L (22.0-26.0) 20.9 mmol/L (22.0-26.0) Arterial Blood Oxygen Saturation 81.1 % (95-100) 98.1 % (95-100) Arterial Blood Base Excess 0.2 (-2-2) -2.5 (-2-2) Bradly Test Positive Positive White Blood Count 5.9 K/UL (4.8-10.8) Red Blood Count 2.35 M/UL (4.20-5.40) Hemoglobin 7.0 G/DL (12.0-16.0) Hematocrit 22.0 % (37.0-47.0) Mean Corpuscular Volume 94 FL (80-99) Mean Corpuscular Hemoglobin 30.0 PG (27.0-31.0) Mean Corpuscular Hemoglobin Concent 32.0 G/DL (32.0-36.0) Red Cell Distribution Width 12.4 % (11.6-14.8) Platelet Count 140 K/UL (150-450) Mean Platelet Volume 7.7 FL (6.5-10.1) Neutrophils (%) (Auto) % (45.0-75.0) Lymphocytes (%) (Auto) % (20.0-45.0) Monocytes (%) (Auto) % (1.0-10.0) Eosinophils (%) (Auto) % (0.0-3.0) Basophils (%) (Auto) % (0.0-2.0) Differential Total Cells Counted 100 Neutrophils % (Manual) 74 % (45-75) Lymphocytes % (Manual) 17 % (20-45) Monocytes % (Manual) 6 % (1-10) Eosinophils % (Manual) 2 % (0-3) Basophils % (Manual) 1 % (0-2) Band Neutrophils 0 % (0-8) Platelet Estimate Decreased Platelet Morphology Normal Hypochromasia 2+ Anisocytosis 1+ Sodium Level 145 MMOL/L (136-145) Potassium Level 3.1 MMOL/L (3.5-5.1) Chloride Level 117 MMOL/L (98-107) Carbon Dioxide Level 18 MMOL/L (21-32) Anion Gap 10 mmol/L (5-15) Blood Urea Nitrogen 9 mg/dL (7-18) Creatinine 0.5 MG/DL (0.55-1.30) Estimat Glomerular Filtration Rate > 60 mL/min (>60) Glucose Level 77 MG/DL (74-106) Lactic Acid Level 1.50 mmol/L (0.4-2.0) Calcium Level 5.0 MG/DL (8.5-10.1) Iron Level 26 ug/dL (50-175) Total Iron Binding Capacity 111 ug/dL (250-450) Percent Iron Saturation 23 % (15-50) Unsaturated Iron Binding 85 ug/dL (112-346) Ferritin 178 NG/ML (8-388) Total Bilirubin 0.2 MG/DL (0.2-1.0) Aspartate Amino Transf (AST/SGOT) 33 U/L (15-37) Alanine Aminotransferase (ALT/SGPT) 13 U/L (12-78) Alkaline Phosphatase 39 U/L (46-116) Ammonia 12 umol/L (11-32) Total Creatine Kinase 17 U/L (26-308) Troponin I 0.042 ng/mL (0.000-0.056) Total Protein 2.8 G/DL (6.4-8.2) Albumin 1.0 G/DL (3.4-5.0) Globulin 1.8 g/dL Albumin/Globulin Ratio 0.6 (1.0-2.7) Vitamin B12 Level 404 PG/ML (193-986) Folate 3.3 NG/ML (8.6-58.9) Thyroid Stimulating Hormone (TSH) 2.756 uiU/mL (0.358-3.740) Salicylates Level 0.3 ug/mL (2.8-20) Acetaminophen Level 17 MCG/ML (10-30) Serum Alcohol < 3 mg/dL Urine Color Pale yellow Urine Appearance Clear Urine pH 7 (4.5-8.0) Urine Specific [place] 1.005 (1.005-1.035) Urine Protein Negative (NEGATIVE) Urine Glucose (UA) Negative (NEGATIVE) Urine Ketones 1+ (NEGATIVE) Urine Blood 1+ (NEGATIVE) Urine Nitrite Negative (NEGATIVE) Urine Bilirubin Negative (NEGATIVE) Urine Urobilinogen Normal MG/DL (0.0-1.0) Urine Leukocyte Esterase 1+ (NEGATIVE) Urine RBC 2-4 /HPF (0 - 2) Urine WBC 2-4 /HPF (0 - 2) Urine Squamous Epithelial Cells Few /LPF (NONE/OCC) Urine Bacteria Few /HPF (NONE) Urine Opiates Screen Positive (NEGATIVE) Urine Barbiturates Screen Negative (NEGATIVE) Phencyclidine (PCP) Screen Negative (NEGATIVE) Urine Amphetamines Screen Negative (NEGATIVE) Urine Benzodiazepines Screen Negative (NEGATIVE) Urine Cocaine Screen Negative (NEGATIVE) Urine Marijuana (THC) Screen Negative (NEGATIVE) Test 10/07/18 04:00 10/07/18 10:05 10/08/18 03:00 10/08/18 04:00 White Blood Count 15.7 K/UL (4.8-10.8) 12.7 K/UL (4.8-10.8) Red Blood Count 3.93 M/UL (4.20-5.40) 3.56 M/UL (4.20-5.40) Hemoglobin 12.0 G/DL (12.0-16.0) 11.0 G/DL (12.0-16.0) Hematocrit 34.9 % (37.0-47.0) 32.1 % (37.0-47.0) Mean Corpuscular Volume 89 FL (80-99) 90 FL (80-99) Mean Corpuscular Hemoglobin 30.5 PG (27.0-31.0) 30.8 PG (27.0-31.0) Mean Corpuscular Hemoglobin Concent 34.2 G/DL (32.0-36.0) 34.2 G/DL (32.0-36.0) Red Cell Distribution Width 12.0 % (11.6-14.8) 12.0 % (11.6-14.8) Platelet Count 243 K/UL (150-450) 226 K/UL (150-450) Mean Platelet Volume 7.0 FL (6.5-10.1) 7.3 FL (6.5-10.1) Neutrophils (%) (Auto) 75.4 % (45.0-75.0) 70.0 % (45.0-75.0) Lymphocytes (%) (Auto) 14.7 % (20.0-45.0) 15.7 % (20.0-45.0) Monocytes (%) (Auto) 7.4 % (1.0-10.0) 10.4 % (1.0-10.0) Eosinophils (%) (Auto) 1.3 % (0.0-3.0) 3.0 % (0.0-3.0) Basophils (%) (Auto) 1.2 % (0.0-2.0) 0.9 % (0.0-2.0) Sodium Level 136 MMOL/L (136-145) 133 MMOL/L (136-145) Potassium Level 3.9 MMOL/L (3.5-5.1) 4.2 MMOL/L (3.5-5.1) Chloride Level 103 MMOL/L (98-107) 103 MMOL/L (98-107) Carbon Dioxide Level 21 MMOL/L (21-32) 20 MMOL/L (21-32) Anion Gap 12 mmol/L (5-15) 10 mmol/L (5-15) Blood Urea Nitrogen 12 mg/dL (7-18) 7 mg/dL (7-18) Creatinine 1.0 MG/DL (0.55-1.30) 0.9 MG/DL (0.55-1.30) Estimat Glomerular Filtration Rate > 60 mL/min (>60) > 60 mL/min (>60) Glucose Level 119 MG/DL (74-106) 117 MG/DL (74-106) Hemoglobin A1c 5.6 % (4.3-6.0) Uric Acid 6.3 MG/DL (2.6-7.2) Calcium Level 10.8 MG/DL (8.5-10.1) 9.7 MG/DL (8.5-10.1) Ionized Calcium (Measured) 1.31 mmol/L (1.10-1.35) Phosphorus Level 3.4 MG/DL (2.5-4.9) 2.7 MG/DL (2.5-4.9) Magnesium Level 1.1 MG/DL (1.8-2.4) 2.0 MG/DL (1.8-2.4) Total Bilirubin 0.5 MG/DL (0.2-1.0) 0.6 MG/DL (0.2-1.0) Aspartate Amino Transf (AST/SGOT) 57 U/L (15-37) 39 U/L (15-37) Alanine Aminotransferase (ALT/SGPT) 31 U/L (12-78) 22 U/L (12-78) Alkaline Phosphatase 101 U/L (46-116) 94 U/L (46-116) Ammonia 23 umol/L (11-32) Troponin I 1.583 ng/mL (0.000-0.056) 0.008 ng/mL (0.000-0.056) C-Reactive Protein, Quantitative 2.0 mg/dL (0.00-0.90) 3.3 mg/dL (0.00-0.90) Pro-B-Type Natriuretic Peptide 235 pg/mL (0-125) 693 pg/mL (0-125) Total Protein 6.7 G/DL (6.4-8.2) 6.2 G/DL (6.4-8.2) Albumin 2.7 G/DL (3.4-5.0) 2.5 G/DL (3.4-5.0) Globulin 4.0 g/dL 3.7 g/dL Albumin/Globulin Ratio 0.7 (1.0-2.7) 0.7 (1.0-2.7) Triglycerides Level 96 MG/DL (30-150) Cholesterol Level 119 MG/DL (< 200) LDL Cholesterol 74 mg/dL (<100) HDL Cholesterol 30 MG/DL (40-60) Cholesterol/HDL Ratio 4.0 (3.3-4.4) Cortisol AM Sample 11.5 UG/DL Arterial Blood pH 7.432 (7.350-7.450) Arterial Blood Partial Pressure CO2 29.8 mmHg (35.0-45.0) Arterial Blood Partial Pressure O2 110.3 mmHg (75.0-100.0) Arterial Blood HCO3 19.4 mmol/L (22.0-26.0) Arterial Blood Oxygen Saturation 97.7 % (95-100) Arterial Blood Base Excess -3.7 (-2-2) Bradly Test Positive Vancomycin Level Trough 22.2 ug/mL (5.0-12.0) Height (Feet): 5 Height (Inches): 3.00 Weight (Pounds): 149 Objective Gen: reviewed, abnormal General Appearance: non-toxic, Stupor Head: normocephalic, atraumatic Eyes: bilateral eye normal inspection, bilateral eye PERRL Neck: supple Respiratory: decreased breath sounds, other - Poor tidal volume Cardiovascular: normal peripheral pulses, regular rate, rhythm, no edema Gi: non tender, decreased bowel sounds Genitourinary: normal inspection Musculoskeletal: other - Flaccid Psychiatric: other - Stupor Skin: warm/dry, cyanosis Roberto Florence MD October 08, 2018 13:17
--- NOTE | 2018-10-08 13:54 | NUR ---
NURSE NOTES: Dr. Main at bedside. Received orders to remove OGT, d/c restraints, perform RN bedside swallow. Patient is refusing care, agitated and restless. Received orders for ativan 0.5 ivp TID pRN for agitation.
--- NOTE | 2018-10-08 14:51 | Cardiology Report ---
APPROVED REPORT EKG Measurement Heart [id number] Normal sinus rhythm Nonspecific ST abnormality Prolonged QT Abnormal ECG
[2018-10-08] MEDS: LORazepam Inj 2mg/ml 1ml IV PRN (15:36)
--- NOTE | 2018-10-08 15:37 | NUR ---
NURSE NOTES: Patient seen trying to remove IV lines and professor of violin. Restless and trying to get out of bed. Reoriented patient using therapeutic talk or turning television on but patient is still agitated. Ativan 0.5mg IVP given as per ordered.
--- NOTE | 2018-10-08 17:36 | NUR ---
NURSE NOTES: Patient had x1 small soft bm. Turned and repositioned. patient is sedated, no signs of distress. On RA saturating at 94%.
--- NOTE | 2018-10-08 19:01 | Consultation ---
DATE OF CONSULTATION: 10/08/2018 CARDIOLOGY CONSULTATION CONSULTING PHYSICIAN: Nakul Calvert M.D. REFERRING PHYSICIAN: Ty Main M.D. REASON FOR CONSULTATION: Hypotension and respiratory failure. HISTORY OF PRESENT ILLNESS: The patient is a 67-year-old lady, who presented to the emergency room with respiratory distress and altered mental status. The patient was found to be in severe hypoxemia and was intubated and was found to have pneumonia on chest x-ray. The patient was started on IV antibiotics. Cardiology consultation was obtained for further evaluation and management. At the time of my evaluation, the patient was still in the intensive care unit and was just extubated. REVIEW OF SYSTEMS: Negative other than what was mentioned in the history of present illness. PAST MEDICAL HISTORY: 1. History of hypertension. 2. CVA. 3. History of cardiac arrest. 4. Rib fracture. 5. Dementia. 6. Esophageal ulcer. 7. Diaphragmatic hernia. 8. Morbid obesity. ALLERGIES: She is allergic to penicillin and aspirin. PHYSICAL EXAMINATION: VITAL SIGNS: Show blood pressure of 126/76, pulse is 98, respirations 18, and temperature 99.2. HEAD AND NECK: Shows no JVD. LUNGS: Coarse rhonchi. CARDIOVASCULAR: Shows regular S1 and S2 with no gallop or murmur. ABDOMEN: Soft. EXTREMITIES: No pitting edema. LABORATORY AND DIAGNOSTIC DATA: Labs show white count of 12.7, hemoglobin of 11, hematocrit of 32, and platelet count is 226,000. Sodium is 132, potassium is 4.2, BUN of 7, creatinine 0.9, and glucose of 117. Troponin is . Third troponin was negative. Urine toxicology screen is positive for opiates. ASSESSMENT AND PLAN: 1. Troponin leak. The first and third troponin is negative. The second troponin was mildly elevated. We will order EKG and an echocardiogram for further evaluation. The patient's current EKG shows sinus rhythm with nonspecific ST abnormality and prolonged QT. 2. Status post respiratory failure with pneumonia. The patient is on intravenous antibiotic and is already extubated. 3. Hypertension. On Cardizem 60 mg every 8 hours, that will be continued. 4. Sepsis. On vancomycin, Flagyl, and cefepime. 5. Severe anemia, hemoglobin was 7, status post transfusion. Further evaluation by Dr. Florence. Thank you very much for allowing me to participate in the care of this patient. Please do not hesitate to contact me for any questions regarding my evaluation. Nakul Calvert M.D. DR: NIKKI JOB#: [id number] CC:
--- NOTE | 2018-10-08 19:25 | NUR ---
HAND-OFF: Report given to KACIE Newell.
--- NOTE | 2018-10-08 19:30 | NUR ---
NURSE NOTES:Received pt just newly extubated. On room air with 02 sat >95%. Still sedated at this time from PM shift. Pt left hand 2+ swollen ,the rest of the extremities with generalized edema. off soft wrist restrained. Side rails up x3 placed on fall precaution. STlow 100s on the monitor. Bp stable afebrile.Skin is intact. IVF infusing well per RT forearm. Site atraumatic. Jorge to gravity with moderate amt of giovanna yellow urine- Will continue to monitor.
--- NOTE | 2018-10-08 21:30 | NUR ---
NURSE NOTES:Sleeping at this time. 02 sat >92%
--- NOTE | 2018-10-08 23:00 | Progress Note ---
DATE: 10/08/2018 SUBJECTIVE: This is an elderly female who came with acute respiratory failure, intubated. Now, more awake, alert, and extubated herself. The patient has a lot of copious secretion. She is also talking and looks comfortable. We took her NG tube out, but she has a lot of secretion. She is refusing to suction, but the patient can take out her phlegm. She is otherwise more awake and alert. OBJECTIVE: VITAL SIGNS: Her blood pressure is 132/91, pulse 106, respirations , and saturation 99%. HEENT: Eyes are open. NECK: Supple. CHEST: Bilateral few crackles. CARDIOVASCULAR: Irregular rhythm. Tachycardia. ABDOMEN: Soft. Positive bowel sounds. Nontender. EXTREMITIES: No swelling. GENITOURINARY: Deferred. LABORATORY EXAMINATION: White counts are 13,000, hemoglobin 11, hematocrit 33, and platelets are 221,000. Chemistry panel, her potassium was low, given . ASSESSMENT: 1. Acute respiratory failure. 2. Impending respiratory arrest. 3. Hypertension. 4. Encephalopathy. 5. Chronic bronchitis. PLAN: The patient quit smoking. We will continue bronchodilator treatment. Continue IV antibiotics. We will start pureed diet, advance as tolerated, decreasing intravenous fluid. Continue ICU care because of tachycardia and still copious secretions, need suction every 2 to 3 hours. The patient also is a little bit agitated and has been fighting with the nurses with the care, but she understood. Demario Main M.D. DR: JERRY JOB#: [id number] CC:
--- NOTE | 2018-10-08 23:00 | NUR ---
NURSE NOTES:Condition unchanged.
[2018-10-09] VITALS (19 sets, daily range): BP systolic 109–139; BP diastolic 66–105
--- NOTE | 2018-10-09 01:00 | NUR ---
NURSE NOTES:Diaviva lg amt of giovanna yellow urine. Monitor I and O. monitor lytes.
[2018-10-09] MEDS: LORazepam Inj 2mg/ml 1ml IV PRN (02:11)
--- NOTE | 2018-10-09 02:12 | NUR ---
NURSE NOTES:Ativan 0.5mg ivp given due to pts anxiety.
--- NOTE | 2018-10-09 03:00 | NUR ---
NURSE NOTES:Complete bath with bed changed done.
--- NOTE | 2018-10-09 05:00 | NUR ---
NURSE NOTES Had smll frequent soft brownish stools. Cleaned up pt.
[2018-10-09] MEDS: Vancomycin 750mg/NS 275ml IVPB SCH ×2 (05:20)
[2018-10-09 05:50] LABS: BASOPHILS % (AUTO) 0.9 % (0.0-2.0); EOSINOPHILS % (AUTO) 2.2 % (0.0-3.0); HEMATOCRIT 34.8 % (37.0-47.0); HEMOGLOBIN 11.8 G/DL (12.0-16.0); LYMPHOCYTES % (AUTO) 8.6 % (20.0-45.0); MEAN CORPUSCULAR VOLUME 91 FL (80-99); MONOCYTES % (AUTO) 8.2 % (1.0-10.0); NEUTROPHILS % (AUTO) 80.1 % (45.0-75.0); PLATELET COUNT 214 K/UL (150-450); RED BLOOD COUNT 3.83 M/UL (4.20-5.40); RED CELL DISTRIBUTION WIDTH 12.6 % (11.6-14.8); WHITE BLOOD COUNT 16.9 K/UL (4.8-10.8)
[2018-10-09] MEDS: dilTIAZem HCl 60mg tab NG SCH ×3 (06:00→21:58)
--- NOTE | 2018-10-09 06:00 | NUR ---
NURSE NOTES:No resp. distress noted. vss
[2018-10-09 06:54] LABS: ALANINE AMINOTRANSFERASE 22 U/L (12-78); ALBUMIN 2.5 G/DL (3.4-5.0); ALBUMIN/GLOBULIN RATIO 0.8 (1.0-2.7); ALKALINE PHOSPHATASE 109 U/L (46-116); ANION GAP 12 mmol/L (5-15); ASPARTATE AMINO TRANSFERASE 29 U/L (15-37); BILIRUBIN,TOTAL 0.6 MG/DL (0.2-1.0); BLOOD UREA NITROGEN 4 mg/dL (7-18); CALCIUM 9.3 MG/DL (8.5-10.1); CARBON DIOXIDE 19 MMOL/L (21-32); CHLORIDE 107 MMOL/L (98-107); CREATININE 0.7 MG/DL (0.55-1.30); PHOSPHORUS 3.7 MG/DL (2.5-4.9); POTASSIUM 4.1 MMOL/L (3.5-5.1); SODIUM 138 MMOL/L (136-145)
--- NOTE | 2018-10-09 07:10 | NUR ---
NURSE NOTES: Received pt from KACIE Newell. patient is asleep, able to arouse by touch and voice. Spontaneously opens eyes and able to communicate needs. Pt is on RA, Spo2 94%, RR 21. Bilateral b/s diminished with rhonchi. Breathing even and unlabored. NPO; ST Eval scheduled for today. LAC 20G and RFA 20G asymptomatic and patent, running D5NS w/20 KCL@50cc/hr. F/C draining well to gravity. Bed locked, alarmed and in lowest position. Will continue plan of care.
--- NOTE | 2018-10-09 07:31 | NUR ---
HAND-OFF: Report given to Ashley HESTER .
[2018-10-09] MEDS: Pantoprazole Inj IVP SCH (08:37)
[2018-10-09] MEDS: Cefepime HCl 1 GM in D5W 55 ML IVPB SCH (08:38)
--- NOTE | 2018-10-09 09:45 | NUR ---
NURSE NOTES: Patient is more awake. Turned and repositioned. Speech therapist at bedside. No signs of distress.
--- NOTE | 2018-10-09 10:35 | Cardiac Electrophysiology PN ---
Assessment/Plan Assessment/Plan 1. Troponin leak. The first and third troponin is negative. The second troponin was mildly elevated. EKG shows sinus rhythm with nonspecific ST abnormality and prolonged QT. EF 55% 2. Status post respiratory failure with pneumonia. The patient is on intravenous antibiotic and is already extubated 10/08/18. 3. Hypertension. On Cardizem 60 mg every 8 hours 4. Sepsis. On vancomycin, Flagyl, and cefepime. 5. Anemia, hemoglobin was 7, repeat levels were OK. Further evaluation by Dr. Florence. DW Dr Gutierrez and RN Subjective Subjective BP has been OK. In ICU. Refused Cardizem po. Got Ativan as was agitated overnight Objective Last 24 Hour Vital Signs Date Time Temp Pulse Resp B/P (MAP) Pulse Ox O2 Delivery O2 Flow Rate FiO2 10/09/18 10:00 98 24 124/82 (96) 93 10/09/18 09:00 91 20 130/73 (92) 92 10/09/18 08:00 98.6 89 15 128/78 (95) 95 10/09/18 08:00 89 10/09/18 08:00 Room Air 10/09/18 07:00 90 20 129/90 (103) 94 10/09/18 06:00 94 129/105 10/09/18 06:00 87 20 129/105 (113) 94 10/09/18 05:00 83 18 113/66 (82) 96 10/09/18 04:00 98.2 91 19 114/66 (82) 96 10/09/18 04:00 91 10/09/18 04:00 Room Air 10/09/18 03:00 101 18 109/68 (82) 97 10/09/18 02:00 112 24 118/84 (95) 95 10/09/18 01:00 110 21 134/75 (94) 93 10/09/18 00:00 106 10/09/18 00:00 99.2 106 22 135/75 (95) 93 10/09/18 00:00 Room Air 10/08/18 23:00 102 22 139/89 (106) 93 10/08/18 22:19 112 122/91 10/08/18 22:00 103 23 143/91 (108) 92 10/08/18 21:00 103 23 122/91 (101) 93 10/08/18 20:00 103 10/08/18 20:00 Room Air 10/08/18 20:00 99.0 103 23 146/88 (107) 94 10/08/18 19:00 101 23 149/85 (106) 93 10/08/18 18:00 97 19 148/85 (106) 96 10/08/18 17:00 100 19 149/91 (110) 97 10/08/18 16:00 100 10/08/18 16:00 99.1 97 24 134/88 (103) 97 10/08/18 16:00 4.0 10/08/18 16:00 Nasal Cannula 4.0 10/08/18 15:00 102 24 129/83 (98) 97 10/08/18 14:00 105 18 132/81 (98) 97 10/08/18 13:44 104 132/91 10/08/18 13:00 96 18 132/61 (84) 100 10/08/18 12:44 126/76 10/08/18 12:00 99.2 98 16 126/76 (93) 95 10/08/18 12:00 Nasal Cannula 4.0 10/08/18 12:00 98 10/08/18 11:00 107 18 124/78 (93) 94 Intake and Output 10/08/18 10/09/18 19:00 07:00 Intake Total 500 ml 500 ml Output Total 1030 ml 1130 ml Balance -530 ml -630 ml IV Total 500 ml 500 ml Output Urine Total 1030 ml 1130 ml Laboratory Tests Test 10/09/18 04:10 White Blood Count 16.9 K/UL (4.8-10.8) H Red Blood Count 3.83 M/UL (4.20-5.40) L Hemoglobin 11.8 G/DL (12.0-16.0) L Hematocrit 34.8 % (37.0-47.0) L Mean Corpuscular Volume 91 FL (80-99) Mean Corpuscular Hemoglobin 31.0 PG (27.0-31.0) Mean Corpuscular Hemoglobin Concent 34.0 G/DL (32.0-36.0) Red Cell Distribution Width 12.6 % (11.6-14.8) Platelet Count 214 K/UL (150-450) Mean Platelet Volume 7.9 FL (6.5-10.1) Neutrophils (%) (Auto) 80.1 % (45.0-75.0) H Lymphocytes (%) (Auto) 8.6 % (20.0-45.0) L Monocytes (%) (Auto) 8.2 % (1.0-10.0) Eosinophils (%) (Auto) 2.2 % (0.0-3.0) Basophils (%) (Auto) 0.9 % (0.0-2.0) Sodium Level 138 MMOL/L (136-145) Potassium Level 4.1 MMOL/L (3.5-5.1) Chloride Level 107 MMOL/L (98-107) Carbon Dioxide Level 19 MMOL/L (21-32) L Anion Gap 12 mmol/L (5-15) Blood Urea Nitrogen 4 mg/dL (7-18) L Creatinine 0.7 MG/DL (0.55-1.30) Estimat Glomerular Filtration Rate > 60 mL/min (>60) Glucose Level 91 MG/DL (74-106) Uric Acid 4.4 MG/DL (2.6-7.2) Calcium Level 9.3 MG/DL (8.5-10.1) Phosphorus Level 3.7 MG/DL (2.5-4.9) Magnesium Level 1.7 MG/DL (1.8-2.4) L Total Bilirubin 0.6 MG/DL (0.2-1.0) Aspartate Amino Transf (AST/SGOT) 29 U/L (15-37) Alanine Aminotransferase (ALT/SGPT) 22 U/L (12-78) Alkaline Phosphatase 109 U/L (46-116) Troponin I 0.007 ng/mL (0.000-0.056) C-Reactive Protein, Quantitative 6.3 mg/dL (0.00-0.90) H Pro-B-Type Natriuretic Peptide 644 pg/mL (0-125) H Total Protein 5.8 G/DL (6.4-8.2) L Albumin 2.5 G/DL (3.4-5.0) L Globulin 3.3 g/dL Albumin/Globulin Ratio 0.8 (1.0-2.7) L Microbiology Date/Time Source Procedure Growth Status 10/06/18 14:10 Blood Blood Culture - Preliminary NO GROWTH AFTER 48 HOURS Resulted 10/06/18 13:55 Blood Blood Culture - Preliminary NO GROWTH AFTER 48 HOURS Resulted 10/06/18 15:26 Nasal Nares MRSA Culture - Final NO METHICILLIN RESISTANT STAPH AUREUS... Complete 10/06/18 15:26 Rectum VRE Culture - Final Enterococcus Faecium - Vre Complete 10/06/18 15:26 Rectum - Final NO CARBAPENEM-RESISTANT ENTEROBACTERI... Complete Objective HEAD AND NECK: No JVD. LUNGS: Coarse rhonchi. CARDIOVASCULAR: Shows regular S1 and S2 with no gallop or murmur. ABDOMEN: Soft. EXTREMITIES: No pitting edema. Nakul Calvert MD October 09, 2018 10:35
[2018-10-09] MEDS: Nitroglycerin Patch 0.4mg TDERMAL SCH (12:30)
--- NOTE | 2018-10-09 12:34 | NUR ---
NURSE NOTES: D/C ativan prn per Dr. Garcia.
--- NOTE | 2018-10-09 12:38 | Pulmonology Progress Note ---
Assessment/Plan Assessment/Plan 1. Acute respiratory failure. 2. Altered mental status with history of hemorrhagic stroke. 3. Pneumonia right lower lobe. 4. Severe anemia. improving tolerated extubation lethargic, refusing ora intake disc w RN CARLOS MANUEL soon Subjective ROS Limited/Unobtainable: Yes Allergies: Coded Allergies: ASPIRIN (Verified Allergy, Unknown, 10/06/18) PENICILLINS (Unverified Allergy, Unknown, 10/06/18) Objective Last 24 Hour Vital Signs Date Time Temp Pulse Resp B/P (MAP) Pulse Ox O2 Delivery O2 Flow Rate FiO2 10/09/18 12:30 127/85 10/09/18 12:00 98.9 91 19 127/85 (99) 96 10/09/18 12:00 92 10/09/18 12:00 Room Air 10/09/18 11:00 96 22 134/83 (100) 93 10/09/18 10:00 98 24 124/82 (96) 93 10/09/18 09:00 91 20 130/73 (92) 92 10/09/18 08:00 98.6 89 15 128/78 (95) 95 10/09/18 08:00 89 10/09/18 08:00 Room Air 10/09/18 07:00 90 20 129/90 (103) 94 10/09/18 06:00 94 129/105 10/09/18 06:00 87 20 129/105 (113) 94 10/09/18 05:00 83 18 113/66 (82) 96 10/09/18 04:00 98.2 91 19 114/66 (82) 96 10/09/18 04:00 91 10/09/18 04:00 Room Air 10/09/18 03:00 101 18 109/68 (82) 97 10/09/18 02:00 112 24 118/84 (95) 95 10/09/18 01:00 110 21 134/75 (94) 93 10/09/18 00:00 106 10/09/18 00:00 99.2 106 22 135/75 (95) 93 10/09/18 00:00 Room Air 10/08/18 23:00 102 22 139/89 (106) 93 10/08/18 22:19 112 122/91 10/08/18 22:00 103 23 143/91 (108) 92 10/08/18 21:00 103 23 122/91 (101) 93 10/08/18 20:00 103 10/08/18 20:00 Room Air 10/08/18 20:00 99.0 103 23 146/88 (107) 94 10/08/18 19:00 101 23 149/85 (106) 93 10/08/18 18:00 97 19 148/85 (106) 96 10/08/18 17:00 100 19 149/91 (110) 97 10/08/18 16:00 100 10/08/18 16:00 99.1 97 24 134/88 (103) 97 10/08/18 16:00 4.0 10/08/18 16:00 Nasal Cannula 4.0 10/08/18 15:00 102 24 129/83 (98) 97 10/08/18 14:00 105 18 132/81 (98) 97 10/08/18 13:44 104 132/91 10/08/18 13:00 96 18 132/61 (84) 100 10/08/18 12:44 126/76 Intake and Output 10/08/18 10/09/18 19:00 07:00 Intake Total 500 ml 550 ml Output Total 1030 ml 1130 ml Balance -530 ml -580 ml IV Total 500 ml 550 ml Output Urine Total 1030 ml 1130 ml General Appearance: no acute distress HEENT: atraumatic Respiratory/Chest: lungs clear, decreased breath sounds Cardiovascular: normal rate Abdomen: soft, non tender Microbiology Date/Time Source Procedure Growth Status 10/06/18 14:10 Blood Blood Culture - Preliminary NO GROWTH AFTER 48 HOURS Resulted 10/06/18 13:55 Blood Blood Culture - Preliminary NO GROWTH AFTER 48 HOURS Resulted 10/06/18 15:26 Nasal Nares MRSA Culture - Final NO METHICILLIN RESISTANT STAPH AUREUS... Complete 10/06/18 15:26 Rectum VRE Culture - Final Enterococcus Faecium - Vre Complete 10/06/18 15:26 Rectum - Final NO CARBAPENEM-RESISTANT ENTEROBACTERI... Complete Laboratory Tests 10/09/18 04:10: White Blood Count 16.9H, Red Blood Count 3.83L, Hemoglobin 11.8L, Hematocrit 34.8L, Mean Corpuscular Volume 91, Mean Corpuscular Hemoglobin 31.0, Mean Corpuscular Hemoglobin Concent 34.0, Red Cell Distribution Width 12.6, Platelet Count 214, Mean Platelet Volume 7.9, Neutrophils (%) (Auto) 80.1H, Lymphocytes ( %) (Auto) 8.6L, Monocytes (%) (Auto) 8.2, Eosinophils (%) (Auto) 2.2, Basophils (%) (Auto) 0.9, Sodium Level 138, Potassium Level 4.1, Chloride Level 107, Carbon Dioxide Level 19L, Anion Gap 12, Blood Urea Nitrogen 4L, Creatinine 0.7, Estimat Glomerular Filtration Rate > 60, Glucose Level 91, Uric Acid 4.4, Calcium Level 9.3, Phosphorus Level 3.7, Magnesium Level 1.7L, Total Bilirubin 0.6, Aspartate Amino Transf (AST/SGOT) 29, Alanine Aminotransferase (ALT/SGPT) 22, Alkaline Phosphatase 109, Troponin I 0.007, C-Reactive Protein, Quantitative 6.3H, Pro-B-Type Natriuretic Peptide 644H, Total Protein 5.8L, Albumin 2.5L, Globulin 3.3, Albumin/Globulin Ratio 0.8L Current Medications Medications (Trade) Dose Ordered Sig/Yumiko Route PRN Reason Start Time Stop Time Status Last Admin Dose Admin Cefepime HCl 2 gm/ Dextrose 55 ml @ 110 mls/hr QHS IVPB 10/09/18 21:00 10/16/18 20:59 Clonidine HCl (Catapres Tab) 0.1 mg Q4H PRN NG bp over 160 syst 10/07/18 14:45 11/06/18 14:44 Clopidogrel Bisulfate (Plavix) 75 mg DAILY NG 10/07/18 13:00 11/06/18 12:59 10/09/18 08:37 Dextrose/ Electrolytes 1,000 ml @ 50 mls/hr Q20H IV 10/08/18 11:30 11/07/18 11:29 10/09/18 07:30 Diltiazem HCl (Cardizem) 60 mg EVERY 8 HOURS NG 10/07/18 14:00 11/06/18 13:59 10/08/18 22:19 Folic Acid (Folate) 5 mg DAILY NG 10/07/18 12:45 11/06/18 12:44 10/09/18 08:38 Magnesium Sulfate 100 ml @ 100 mls/hr Q1H IVPB 10/09/18 10:00 10/09/18 12:59 10/09/18 11:00 Metronidazole 100 ml @ 100 mls/hr Q6HR IVPB 10/06/18 22:00 10/13/18 21:59 10/09/18 12:18 Nitroglycerin (Ntg) 1 patch Q24H TDERMAL 10/07/18 12:45 11/06/18 12:44 10/09/18 12:30 Pantoprazole (Protonix) 40 mg EVERY 12 HOURS IVP 10/06/18 21:00 11/05/18 20:59 10/09/18 08:37 Vancomycin HCl (Vanco rx to dose) 1 ea DAILY PRN MISC Per rx protocol 10/06/18 15:15 11/05/18 15:14 Vancomycin HCl 750 mg/Sodium Chloride 275 ml @ 183.333 mls/hr Q12H IVPB 10/08/18 05:00 10/13/18 04:59 10/09/18 05:20 Fernando Garcia MD October 09, 2018 12:38
--- NOTE | 2018-10-09 13:13 | Diagnostic Imaging Report ---
EXAM: XR Chest, 1 View CLINICAL HISTORY: TUBE PLCMT TECHNIQUE: Frontal view of the chest. COMPARISON: Chest radiograph on 10/06/2018 at 1432 hrs. FINDINGS: Hardware: Interval retraction of the endotracheal tube which now terminates in the region of the mid thoracic trachea. Lungs/pleura: Decreased opacity in the right mid and lower lung. Persistent bibasilar opacities which may represent atelectasis versus pneumonia. Possible small left pleural effusion. Heart/mediastinum: Mild enlargement of the cardiomediastinal silhouette. Atherosclerotic calcifications of the aorta. Soft tissues: Unremarkable. Bones: No acute fracture. Biconvex curvature of the thoracic spine. Upper abdomen: Surgical clips in the left upper quadrant. IMPRESSION: 1. Interval retraction of the endotracheal tube which now terminates in the region of the mid thoracic trachea. 2. Decreased opacity in the right mid and lower lung. Persistent bibasilar opacities which may represent atelectasis versus pneumonia. Possible small left pleural effusion.
--- NOTE | 2018-10-09 13:13 | Diagnostic Imaging Report ---
EXAM: XR Chest, 1 View CLINICAL HISTORY: ALOC TECHNIQUE: Frontal view of the chest. COMPARISON: Chest radiograph on 10/06/2018 at 1448 hrs. FINDINGS: Hardware: Endotracheal tube terminates in the right mainstem bronchus. Lungs/pleura: Patchy opacities in the right lung may represent atelectasis versus infectious/inflammatory process. Left basilar opacity may represent combination of pleural effusion with atelectasis versus pneumonia. Heart/mediastinum: Mild enlargement of the cardiomediastinal silhouette. Atherosclerotic calcifications of the aorta. Soft tissues: Unremarkable. Bones: No acute fracture. Upper abdomen: Multiple surgical clips in the upper abdomen. IMPRESSION: 1. Endotracheal tube terminates in the right mainstem bronchus. This appears to have been retracted on a follow-up exam which is available at the time of this interpretation. 2. Patchy opacities in the right lung may represent atelectasis versus infectious/inflammatory process. Left basilar opacity may represent combination of pleural effusion with atelectasis versus pneumonia.
--- NOTE | 2018-10-09 13:14 | Diagnostic Imaging Report ---
EXAM: XR Abdomen, 2 Views CLINICAL HISTORY: TUBE PLCMT TECHNIQUE: Frontal view of the abdomen/pelvis with upright view of the abdomen. COMPARISON: None FINDINGS: Hardware: Enteric tube terminates in the region of the gastric antrum. Abdomen: Nonspecific but nonobstructive bowel gas pattern. No free air. Postsurgical changes along the region of the stomach. Bones: Left convex curvature of the lumbar spine. Degenerative changes of the spine. Degenerative changes of right greater than left hips. Soft tissues: Normal. Lower chest: Normal. Other: Probable excreted contrast trabecula in the bladder IMPRESSION: Acute terminates in the region of the gastric antrum.
--- NOTE | 2018-10-09 13:14 | Diagnostic Imaging Report ---
EXAM: XR Chest, 1 View CLINICAL HISTORY: SOB TECHNIQUE: Frontal view of the chest. COMPARISON: Chest radiograph on 10/06/2018 FINDINGS: Hardware: Stable endotracheal tube which terminates in the region of the mid thoracic trachea. Lungs/pleura: Decreased bibasilar opacities which may represent atelectasis. Possible pulmonary vasculature congestion. No definite pleural effusion or pneumothorax. Heart/mediastinum: Similar mild enlargement of the cardiomediastinal silhouette accounting for patient rotation. Soft tissues: Unremarkable. Bones: No acute fracture. Degenerative changes of the visualized left acromioclavicular joint. Upper abdomen: Surgical clips in the right upper quadrant and near the GE junction. IMPRESSION: Decreased bibasilar opacities which may represent atelectasis. Possible pulmonary vasculature congestion. Stable endotracheal tube.
--- NOTE | 2018-10-09 14:15 | Nephrology Progress Note ---
Assessment/Plan Problem List: (1) Respiratory failure (2) Hypocalcemia (3) Right middle lobe pneumonia (4) Hypertension (5) Elevated troponin I level Assessment acute respiratory failure- Severe Anemia doubt accuracy Severe Hypocalcemia doubt accuracy Severe hypoalbuminemia doubt accuracy ? sepsis elevated troponin HTN OOC Plan extubated lindsay urine studies monitor lytes and chemistries folic acid NG Nitrate , pavix ( ASA Allergy) Clonidin PRN Cardiazem for high BP start feeding mag IV Subjective ROS Limited/Unobtainable: No Objective Objective Last 24 Hour Vital Signs Date Time Temp Pulse Resp B/P (MAP) Pulse Ox O2 Delivery O2 Flow Rate FiO2 10/09/18 14:00 92 21 118/88 (98) 95 10/09/18 13:09 91 127/85 10/09/18 13:00 91 18 127/85 (99) 98 10/09/18 12:30 127/85 10/09/18 12:00 98.9 91 19 127/85 (99) 96 10/09/18 12:00 92 10/09/18 12:00 Room Air 10/09/18 11:00 96 22 134/83 (100) 93 10/09/18 10:00 98 24 124/82 (96) 93 10/09/18 09:00 91 20 130/73 (92) 92 10/09/18 08:00 98.6 89 15 128/78 (95) 95 10/09/18 08:00 89 10/09/18 08:00 Room Air 10/09/18 07:00 90 20 129/90 (103) 94 10/09/18 06:00 94 129/105 10/09/18 06:00 87 20 129/105 (113) 94 10/09/18 05:00 83 18 113/66 (82) 96 10/09/18 04:00 98.2 91 19 114/66 (82) 96 10/09/18 04:00 91 10/09/18 04:00 Room Air 10/09/18 03:00 101 18 109/68 (82) 97 10/09/18 02:00 112 24 118/84 (95) 95 10/09/18 01:00 110 21 134/75 (94) 93 10/09/18 00:00 106 10/09/18 00:00 99.2 106 22 135/75 (95) 93 10/09/18 00:00 Room Air 10/08/18 23:00 102 22 139/89 (106) 93 10/08/18 22:19 112 122/91 10/08/18 22:00 103 23 143/91 (108) 92 10/08/18 21:00 103 23 122/91 (101) 93 10/08/18 20:00 103 10/08/18 20:00 Room Air 10/08/18 20:00 99.0 103 23 146/88 (107) 94 10/08/18 19:00 101 23 149/85 (106) 93 10/08/18 18:00 97 19 148/85 (106) 96 10/08/18 17:00 100 19 149/91 (110) 97 10/08/18 16:00 100 10/08/18 16:00 99.1 97 24 134/88 (103) 97 10/08/18 16:00 4.0 10/08/18 16:00 Nasal Cannula 4.0 10/08/18 15:00 102 24 129/83 (98) 97 Intake and Output 10/08/18 10/09/18 19:00 07:00 Intake Total 500 ml 550 ml Output Total 1030 ml 1130 ml Balance -530 ml -580 ml IV Total 500 ml 550 ml Output Urine Total 1030 ml 1130 ml Laboratory Tests 10/09/18 04:10: White Blood Count 16.9H, Red Blood Count 3.83L, Hemoglobin 11.8L, Hematocrit 34.8L, Mean Corpuscular Volume 91, Mean Corpuscular Hemoglobin 31.0, Mean Corpuscular Hemoglobin Concent 34.0, Red Cell Distribution Width 12.6, Platelet Count 214, Mean Platelet Volume 7.9, Neutrophils (%) (Auto) 80.1H, Lymphocytes ( %) (Auto) 8.6L, Monocytes (%) (Auto) 8.2, Eosinophils (%) (Auto) 2.2, Basophils (%) (Auto) 0.9, Sodium Level 138, Potassium Level 4.1, Chloride Level 107, Carbon Dioxide Level 19L, Anion Gap 12, Blood Urea Nitrogen 4L, Creatinine 0.7, Estimat Glomerular Filtration Rate > 60, Glucose Level 91, Uric Acid 4.4, Calcium Level 9.3, Phosphorus Level 3.7, Magnesium Level 1.7L, Total Bilirubin 0.6, Aspartate Amino Transf (AST/SGOT) 29, Alanine Aminotransferase (ALT/SGPT) 22, Alkaline Phosphatase 109, Troponin I 0.007, C-Reactive Protein, Quantitative 6.3H, Pro-B-Type Natriuretic Peptide 644H, Total Protein 5.8L, Albumin 2.5L, Globulin 3.3, Albumin/Globulin Ratio 0.8L Height (Feet): 5 Height (Inches): 3.00 Weight (Pounds): 152 General Appearance: no apparent distress EENT: other - now extubated Cardiovascular: tachycardia Respiratory/Chest: decreased breath sounds Abdomen: distended Gregory Gutierrez MD October 09, 2018 14:15
--- NOTE | 2018-10-09 14:45 | Hematology/Onc Progress Note ---
Assessment/Plan Assessment/Plan Assessment and Recs: # Anemia of chronic disease due to underlying chronic medical issues, multifactorial --> Anemia w/u will order if hgb drops, rule out gi bleed --> No evidence of hemolysis is noted, peripheral smear has been reviewed. --> Hgb goal >7. Transfuse prn. --> Epogen or iron at this time is not particularly indicated --> Medications have been reviewed --> trend hgb 7-->12-->11 (likely was lab error) # Leukocytosis/elevated white blood cell count, unspecified likely related to underlying stress reaction, smoking v more likely infection --> have reviewed peripheral smear and bandemia/neutrophilia noted, lactic acid is wnl --> continue antibiotics as needed, imaging reviewed --> monitor for resolution --> trend wbc 6-->16k-->12k-->17k # Thrombocytopenia with a plt count 100s --> 130-->262k improved --> likely was reactive process # Altered level of consciousness --> neuro consulted, r/o stroke v other cause # Respiratory failure intially intubated --> as per pulm, in icu --> extubated 10/08 # Right middle lobe pneumonia on imaging --> on abx # Status post cardiac arrest The timing of this note does not necessarily reflect the time of the patient was seen. Greatly appreciate consultation! Subjective Constitutional: Denies: no symptoms, chills, fever, malaise, weakness, other HEENT: Denies: no symptoms, eye pain, blurred vision, tearing, double vision, ear pain, ear discharge, nose pain, nose congestion, throat pain, throat swelling, mouth pain, mouth swelling, other Gastrointestinal/Abdominal: Denies: no symptoms, abdomen distended, abdominal pain, black stools, tarry stools, blood in stool, constipated, diarrhea, difficulty swallowing, nausea, poor appetite, poor fluid intake, rectal bleeding , vomiting, other Genitourinary: Denies: no symptoms, burning, discharge, frequency, flank pain, hematuria, incontinence, pain, urgency, other Neurologic/Psychiatric: Denies: no symptoms, anxiety, depressed, emotional problems, headache, numbness, paresthesia, pre-existing deficit, seizure, tingling, tremors, weakness, other Endocrine: Denies: no symptoms, excessive sweating, flushing, intolerance to cold, intolerance to heat, increased hunger, increased thirst, increased urine, unexplained weight gain, unexplained weight loss, other Allergies: Coded Allergies: ASPIRIN (Verified Allergy, Unknown, 10/06/18) PENICILLINS (Unverified Allergy, Unknown, 10/06/18) Subjective 10/08: remains in the icu, refusing weaning, given ativan,cbc reviewed 10/09: no vents noted, extubated, remains in the icu, cbc has been reviewed, wbc stable Objective Objective Current Medications Medications (Trade) Dose Ordered Sig/Yumiko Route PRN Reason Start Time Stop Time Status Last Admin Dose Admin Cefepime HCl 2 gm/ Dextrose 55 ml @ 110 mls/hr QHS IVPB 10/09/18 21:00 10/16/18 20:59 Clonidine HCl (Catapres Tab) 0.1 mg Q4H PRN NG bp over 160 syst 10/07/18 14:45 11/06/18 14:44 Clopidogrel Bisulfate (Plavix) 75 mg DAILY NG 10/07/18 13:00 11/06/18 12:59 10/09/18 08:37 Dextrose/ Electrolytes 1,000 ml @ 50 mls/hr Q20H IV 10/08/18 11:30 11/07/18 11:29 10/09/18 07:30 Diltiazem HCl (Cardizem) 60 mg EVERY 8 HOURS NG 10/07/18 14:00 11/06/18 13:59 10/08/18 22:19 Folic Acid (Folate) 5 mg DAILY NG 10/07/18 12:45 11/06/18 12:44 10/09/18 08:38 Metronidazole 100 ml @ 100 mls/hr Q6HR IVPB 10/06/18 22:00 10/13/18 21:59 10/09/18 12:18 Nitroglycerin (Ntg) 1 patch Q24H TDERMAL 10/07/18 12:45 11/06/18 12:44 10/09/18 12:30 Pantoprazole (Protonix) 40 mg EVERY 12 HOURS IVP 10/06/18 21:00 11/05/18 20:59 10/09/18 08:37 Vancomycin HCl (Vanco rx to dose) 1 ea DAILY PRN MISC Per rx protocol 10/06/18 15:15 11/05/18 15:14 Vancomycin HCl 750 mg/Sodium Chloride 275 ml @ 183.333 mls/hr Q12H IVPB 10/08/18 05:00 10/13/18 04:59 10/09/18 05:20 Last 24 Hour Vital Signs Date Time Temp Pulse Resp B/P (MAP) Pulse Ox O2 Delivery O2 Flow Rate FiO2 10/09/18 14:00 92 21 118/88 (98) 95 10/09/18 13:09 91 127/85 10/09/18 13:00 91 18 127/85 (99) 98 10/09/18 12:30 127/85 10/09/18 12:00 98.9 91 19 127/85 (99) 96 10/09/18 12:00 92 10/09/18 12:00 Room Air 10/09/18 11:00 96 22 134/83 (100) 93 10/09/18 10:00 98 24 124/82 (96) 93 10/09/18 09:00 91 20 130/73 (92) 92 10/09/18 08:00 98.6 89 15 128/78 (95) 95 10/09/18 08:00 89 10/09/18 08:00 Room Air 10/09/18 07:00 90 20 129/90 (103) 94 10/09/18 06:00 94 129/105 10/09/18 06:00 87 20 129/105 (113) 94 10/09/18 05:00 83 18 113/66 (82) 96 10/09/18 04:00 98.2 91 19 114/66 (82) 96 10/09/18 04:00 91 10/09/18 04:00 Room Air 10/09/18 03:00 101 18 109/68 (82) 97 10/09/18 02:00 112 24 118/84 (95) 95 10/09/18 01:00 110 21 134/75 (94) 93 10/09/18 00:00 106 10/09/18 00:00 99.2 106 22 135/75 (95) 93 10/09/18 00:00 Room Air 10/08/18 23:00 102 22 139/89 (106) 93 10/08/18 22:19 112 122/91 10/08/18 22:00 103 23 143/91 (108) 92 10/08/18 21:00 103 23 122/91 (101) 93 10/08/18 20:00 103 10/08/18 20:00 Room Air 10/08/18 20:00 99.0 103 23 146/88 (107) 94 10/08/18 19:00 101 23 149/85 (106) 93 10/08/18 18:00 97 19 148/85 (106) 96 10/08/18 17:00 100 19 149/91 (110) 97 10/08/18 16:00 100 10/08/18 16:00 99.1 97 24 134/88 (103) 97 10/08/18 16:00 4.0 10/08/18 16:00 Nasal Cannula 4.0 10/08/18 15:00 102 24 129/83 (98) 97 10/08/18 14:00 105 18 132/81 (98) 97 10/08/18 13:44 104 132/91 10/08/18 13:00 96 18 132/61 (84) 100 10/08/18 12:44 126/76 10/08/18 12:00 99.2 98 16 126/76 (93) 95 10/08/18 12:00 Nasal Cannula 4.0 10/08/18 12:00 98 10/08/18 11:00 107 18 124/78 (93) 94 10/08/18 09:34 96 Nasal Cannula 4.0 36 10/08/18 09:33 Nasal Cannula 4.0 36 10/08/18 09:27 4.0 10/08/18 09:00 100 21 124/83 (97) 97 10/08/18 08:34 92 13 28 10/08/18 08:00 89 10/08/18 08:00 28 10/08/18 08:00 Mechanical Ventilator 10/08/18 08:00 99.3 89 17 126/80 (95) 97 10/08/18 07:00 105 21 120/88 (99) 100 10/08/18 06:38 93 18 28 10/08/18 06:00 105 22 112/80 (91) 100 10/08/18 05:58 92 135/90 10/08/18 05:17 92 15 28 10/08/18 05:00 98 22 128/88 (101) 100 10/08/18 04:00 93 10/08/18 04:00 99.1 96 21 135/90 (105) 100 10/08/18 04:00 Mechanical Ventilator 10/08/18 04:00 28 10/08/18 03:00 85 14 172/100 (124) 100 10/08/18 02:58 86 16 28 10/08/18 02:00 83 16 110/75 (87) 100 10/08/18 01:12 95 16 28 10/08/18 01:00 89 18 122/85 (97) 100 10/08/18 00:00 Mechanical Ventilator 10/08/18 00:00 98.7 90 16 143/96 (112) 100 10/08/18 00:00 28 10/08/18 00:00 86 10/07/18 23:00 100 20 141/83 (102) 100 10/07/18 22:56 94 21 28 10/07/18 22:00 89 18 129/85 (100) 100 10/07/18 21:18 95 115/78 10/07/18 21:17 99 22 28 10/07/18 21:00 101 20 133/86 (102) 100 10/07/18 20:00 99.3 93 16 108/77 (87) 100 10/07/18 20:00 28 10/07/18 20:00 Mechanical Ventilator 10/07/18 20:00 97 10/07/18 19:00 95 20 115/78 (90) 100 10/07/18 18:50 97 21 28 10/07/18 18:00 88 18 109/70 (83) 100 10/07/18 17:16 89 18 28 10/07/18 17:00 96 18 111/71 (84) 100 10/07/18 16:20 101 135/84 10/07/18 16:00 28 10/07/18 16:00 98.4 104 18 135/84 (101) 100 10/07/18 16:00 Mechanical Ventilator 10/07/18 15:36 105 10/07/18 15:02 107 21 28 10/07/18 15:00 107 17 109/73 (85) 96 Intake and Output 10/08/18 10/09/18 19:00 07:00 Intake Total 500 ml 550 ml Output Total 1030 ml 1130 ml Balance -530 ml -580 ml IV Total 500 ml 550 ml Output Urine Total 1030 ml 1130 ml Labs Test 10/06/18 14:55 10/06/18 16:37 10/07/18 04:00 10/07/18 10:05 Arterial Blood pH 7.431 (7.350-7.450) 7.432 (7.350-7.450) Arterial Blood Partial Pressure CO2 32.2 mmHg (35.0-45.0) 29.8 mmHg (35.0-45.0) Arterial Blood Partial Pressure O2 129.0 mmHg (75.0-100.0) 110.3 mmHg (75.0-100.0) Arterial Blood HCO3 20.9 mmol/L (22.0-26.0) 19.4 mmol/L (22.0-26.0) Arterial Blood Oxygen Saturation 98.1 % (95-100) 97.7 % (95-100) Arterial Blood Base Excess -2.5 (-2-2) -3.7 (-2-2) Bradly Test Positive Positive Urine Color Pale yellow Urine Appearance Clear Urine pH 7 (4.5-8.0) Urine Specific [place] 1.005 (1.005-1.035) Urine Protein Negative (NEGATIVE) Urine Glucose (UA) Negative (NEGATIVE) Urine Ketones 1+ (NEGATIVE) Urine Blood 1+ (NEGATIVE) Urine Nitrite Negative (NEGATIVE) Urine Bilirubin Negative (NEGATIVE) Urine Urobilinogen Normal MG/DL (0.0-1.0) Urine Leukocyte Esterase 1+ (NEGATIVE) Urine RBC 2-4 /HPF (0 - 2) Urine WBC 2-4 /HPF (0 - 2) Urine Squamous Epithelial Cells Few /LPF (NONE/OCC) Urine Bacteria Few /HPF (NONE) Urine Opiates Screen Positive (NEGATIVE) Urine Barbiturates Screen Negative (NEGATIVE) Phencyclidine (PCP) Screen Negative (NEGATIVE) Urine Amphetamines Screen Negative (NEGATIVE) Urine Benzodiazepines Screen Negative (NEGATIVE) Urine Cocaine Screen Negative (NEGATIVE) Urine Marijuana (THC) Screen Negative (NEGATIVE) White Blood Count 15.7 K/UL (4.8-10.8) Red Blood Count 3.93 M/UL (4.20-5.40) Hemoglobin 12.0 G/DL (12.0-16.0) Hematocrit 34.9 % (37.0-47.0) Mean Corpuscular Volume 89 FL (80-99) Mean Corpuscular Hemoglobin 30.5 PG (27.0-31.0) Mean Corpuscular Hemoglobin Concent 34.2 G/DL (32.0-36.0) Red Cell Distribution Width 12.0 % (11.6-14.8) Platelet Count 243 K/UL (150-450) Mean Platelet Volume 7.0 FL (6.5-10.1) Neutrophils (%) (Auto) 75.4 % (45.0-75.0) Lymphocytes (%) (Auto) 14.7 % (20.0-45.0) Monocytes (%) (Auto) 7.4 % (1.0-10.0) Eosinophils (%) (Auto) 1.3 % (0.0-3.0) Basophils (%) (Auto) 1.2 % (0.0-2.0) Sodium Level 136 MMOL/L (136-145) Potassium Level 3.9 MMOL/L (3.5-5.1) Chloride Level 103 MMOL/L (98-107) Carbon Dioxide Level 21 MMOL/L (21-32) Anion Gap 12 mmol/L (5-15) Blood Urea Nitrogen 12 mg/dL (7-18) Creatinine 1.0 MG/DL (0.55-1.30) Estimat Glomerular Filtration Rate > 60 mL/min (>60) Glucose Level 119 MG/DL (74-106) Hemoglobin A1c 5.6 % (4.3-6.0) Uric Acid 6.3 MG/DL (2.6-7.2) Calcium Level 10.8 MG/DL (8.5-10.1) Ionized Calcium (Measured) 1.31 mmol/L (1.10-1.35) Phosphorus Level 3.4 MG/DL (2.5-4.9) Magnesium Level 1.1 MG/DL (1.8-2.4) Total Bilirubin 0.5 MG/DL (0.2-1.0) Aspartate Amino Transf (AST/SGOT) 57 U/L (15-37) Alanine Aminotransferase (ALT/SGPT) 31 U/L (12-78) Alkaline Phosphatase 101 U/L (46-116) Ammonia 23 umol/L (11-32) Troponin I 0.017 ng/mL (0.000-0.056) C-Reactive Protein, Quantitative 2.0 mg/dL (0.00-0.90) Pro-B-Type Natriuretic Peptide 235 pg/mL (0-125) Total Protein 6.7 G/DL (6.4-8.2) Albumin 2.7 G/DL (3.4-5.0) Globulin 4.0 g/dL Albumin/Globulin Ratio 0.7 (1.0-2.7) Triglycerides Level 96 MG/DL (30-150) Cholesterol Level 119 MG/DL (< 200) LDL Cholesterol 74 mg/dL (<100) HDL Cholesterol 30 MG/DL (40-60) Cholesterol/HDL Ratio 4.0 (3.3-4.4) Cortisol AM Sample 11.5 UG/DL Test 10/08/18 03:00 10/08/18 04:00 10/09/18 04:10 Sodium Level 133 MMOL/L (136-145) 138 MMOL/L (136-145) Potassium Level 4.2 MMOL/L (3.5-5.1) 4.1 MMOL/L (3.5-5.1) Chloride Level 103 MMOL/L (98-107) 107 MMOL/L (98-107) Carbon Dioxide Level 20 MMOL/L (21-32) 19 MMOL/L (21-32) Anion Gap 10 mmol/L (5-15) 12 mmol/L (5-15) Blood Urea Nitrogen 7 mg/dL (7-18) 4 mg/dL (7-18) Creatinine 0.9 MG/DL (0.55-1.30) 0.7 MG/DL (0.55-1.30) Estimat Glomerular Filtration Rate > 60 mL/min (>60) > 60 mL/min (>60) Glucose Level 117 MG/DL (74-106) 91 MG/DL (74-106) Calcium Level 9.7 MG/DL (8.5-10.1) 9.3 MG/DL (8.5-10.1) Total Bilirubin 0.6 MG/DL (0.2-1.0) 0.6 MG/DL (0.2-1.0) Aspartate Amino Transf (AST/SGOT) 39 U/L (15-37) 29 U/L (15-37) Alanine Aminotransferase (ALT/SGPT) 22 U/L (12-78) 22 U/L (12-78) Alkaline Phosphatase 94 U/L (46-116) 109 U/L (46-116) Total Protein 6.2 G/DL (6.4-8.2) 5.8 G/DL (6.4-8.2) Albumin 2.5 G/DL (3.4-5.0) 2.5 G/DL (3.4-5.0) Globulin 3.7 g/dL 3.3 g/dL Albumin/Globulin Ratio 0.7 (1.0-2.7) 0.8 (1.0-2.7) Vancomycin Level Trough 22.2 ug/mL (5.0-12.0) White Blood Count 12.7 K/UL (4.8-10.8) 16.9 K/UL (4.8-10.8) Red Blood Count 3.56 M/UL (4.20-5.40) 3.83 M/UL (4.20-5.40) Hemoglobin 11.0 G/DL (12.0-16.0) 11.8 G/DL (12.0-16.0) Hematocrit 32.1 % (37.0-47.0) 34.8 % (37.0-47.0) Mean Corpuscular Volume 90 FL (80-99) 91 FL (80-99) Mean Corpuscular Hemoglobin 30.8 PG (27.0-31.0) 31.0 PG (27.0-31.0) Mean Corpuscular Hemoglobin Concent 34.2 G/DL (32.0-36.0) 34.0 G/DL (32.0-36.0) Red Cell Distribution Width 12.0 % (11.6-14.8) 12.6 % (11.6-14.8) Platelet Count 226 K/UL (150-450) 214 K/UL (150-450) Mean Platelet Volume 7.3 FL (6.5-10.1) 7.9 FL (6.5-10.1) Neutrophils (%) (Auto) 70.0 % (45.0-75.0) 80.1 % (45.0-75.0) Lymphocytes (%) (Auto) 15.7 % (20.0-45.0) 8.6 % (20.0-45.0) Monocytes (%) (Auto) 10.4 % (1.0-10.0) 8.2 % (1.0-10.0) Eosinophils (%) (Auto) 3.0 % (0.0-3.0) 2.2 % (0.0-3.0) Basophils (%) (Auto) 0.9 % (0.0-2.0) 0.9 % (0.0-2.0) Phosphorus Level 2.7 MG/DL (2.5-4.9) 3.7 MG/DL (2.5-4.9) Magnesium Level 2.0 MG/DL (1.8-2.4) 1.7 MG/DL (1.8-2.4) Troponin I 0.008 ng/mL (0.000-0.056) 0.007 ng/mL (0.000-0.056) C-Reactive Protein, Quantitative 3.3 mg/dL (0.00-0.90) 6.3 mg/dL (0.00-0.90) Pro-B-Type Natriuretic Peptide 693 pg/mL (0-125) 644 pg/mL (0-125) Uric Acid 4.4 MG/DL (2.6-7.2) Height (Feet): 5 Height (Inches): 3.00 Weight (Pounds): 152 Objective Gen: reviewed, abnormal General Appearance: non-toxic, Stupor Head: normocephalic, atraumatic Eyes: bilateral eye normal inspection, bilateral eye PERRL Neck: supple Respiratory: decreased breath sounds, other - Poor tidal volume Cardiovascular: normal peripheral pulses, regular rate, rhythm, no edema Gi: non tender, decreased bowel sounds Genitourinary: normal inspection Musculoskeletal: other - Flaccid Psychiatric: other - Stupor Skin: warm/dry, cyanosis Roberto Florence MD October 09, 2018 14:45
--- NOTE | 2018-10-09 14:55 | NUR ---
NURSE NOTES: Turned and repositioned. No signs of distress.
--- NOTE | 2018-10-09 15:14 | NUR ---
ST NOTE: BEDSIDE SWALLOW EVAL RECEIVED BEDSIDE SWALLOW EVAL ORDER CHART REVIEWED PRIOR THE EVALUATION PT IS A 67-YEAR-OLD FEMALE WHO WAS ADMITTED DUE TO ALOC. PER ER NOTE, PT WAS HYPOXIC AND INTUBATED FOR 2 DAYS, EXTUBATED ON 10/08/18. PER ER REPORT, PT HAS NO GAG REFLEX. PER CHART, PT HAD RECENT CARDIOPULMONARY ARREST WITH CPR [facility]. PT HAS HISTORY OF H/O CVA(BASAL GANGLIA STROKE BUT DID NOT SHOW IN THE HEAD CT), DEMENTIA, ALCOHOL AND DRUG ABUSE, HTN, HYPOXIA. 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 PER CXR ON 10/08/18: BIBASILAR LUNG ATELECTASIS AND AIRSPACE DISEASE PLOF: PT RESIDES AT SNF. PER CHART, [facility] WITH THIN LIQUDIS DIET. PER PT'S POLST, PT IS FULL CODE, FULL TREATMENT, OKAY FOR LONG-TERM ARTIFICIAL NUTRITION, INCLUDING FEEDING TUBES CURRENT STATUS: PT AWAKE WITH MAX CUES. PER KEM HESTER, PT RECEIVED ATIVAN AT 2:AM. PER RN, PT HAS TIME TO REFUSE TREATMENT AND SOMETIMES VERBALLY AGGRESSIVE. PT CONFUSED, DID NOT FOLLOW DIRECTIONS WHEN REQUESTED. VOICE IS CLEAR. ADJUST PT AT UPRIGHT POSITION. KEM HESTER, IS AT BEDSIDE. 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 MILDLY INCREASED ORAL TRANSIT TIME(4 SECONDS) UNTIL PHARYNGEAL SWALLOW INITIATED, FAIR LARYNGEAL ELEVATION, NO OVERT S/S OF ASPIRATION. HOWEVER, ORAL RESIDUE WITH PUREE(APPLE SAUCE)WAS NOTED ON L-SIDED. PT IS IS HIGH RISK FOR ASPIRATION DUE TO PT HAS H/O CVA. RECOMMENDATIONS: 1. CONSERVATIVELY, MODIFIED BARIUM SWALLOW STUDY PRIOR PO TRIALS. (PT ALSO LIKELY PULLS OUT THE NGT). 2. FOR QUALITY OF LIFE, SLOWLY INITIATE LOW NA LIQUIFIED PUREED, LIKE NECTAR THICK SOUP CONSISTENCY WITH NECTAR THICK LIQUIDS. 3. STRICT ASPIRATION PRECAUTIONS WITH 1TO1 FEEDING. 4. MODIFIED BARIUM SWALLOW STUDY D/W KEM HESTER AND THE STAFF. POSTED ASPIRATION PRECAUTIONS SIGN.
--- NOTE | 2018-10-09 15:27 | NUR ---
NURSE NOTES: O.K. to transfer to [facility] per Dr. Main
--- NOTE | 2018-10-09 16:00 | Cardiology Report ---
APPROVED REPORT EKG Measurement Heart [id number] Normal sinus rhythm Nonspecific ST and T wave abnormality Abnormal ECG
--- NOTE | 2018-10-09 17:50 | NUR ---
TRANSFER TO FLOOR: Patient transferred to [facility], per Dr. Main. Report given to Ashley Garrison RN. Belongings list checked and medications given to receiving nurse. [facility], endorsed care to RN. Family and or S/O informed of transfer.
--- NOTE | 2018-10-09 17:51 | NUR ---
NURSE NOTES: Received patient from KACIE Ramirez. Patient VS stable at this time with no sign of acute distress. Patient alert to name but confused to place, purpose, and time. Patient asking for something to eat. Will attempt to feed her at this time. Patient reported to be resistant to care. Patient showing sinus rhythm on the rn cardiac cath. Patient on room air with no sign of acute distress and stable oxygen saturation of 99%. Patient was extubated on 10/08 at 0930. Patient has a lindsay for urine retention that is patent and draining at this time. Patient has giovanna colored urine. Patient skin intact. Patient has left forearm 20G PIV that is patent and asymptomatic at this time. Patient has left AC 20G PIV that is swollen and leaking at this time. Will remove this IV. Patient running D5NS with 20mEq KCl at 50mL/hr at this time. Patient had a magnesium level of 1.7 this morning and received 3g Magnesium IV. Patient has a pending vanco trough at this time. Will follow up with lab. Patient has a sputum culture that has not been collected. Patient is refusing to provide the sample. Bed in low position with bed alarm on and call light in reach at this time.
--- NOTE | 2018-10-09 18:28 | NUR ---
NURSE NOTES: Attempted to feed patient. She allowed me to raise the head of the bed but would not take a bite. Patient verbally abusive and confused. Patient then asked me to put her head down and leave her alone. She then asked for water in that position (HOB 30 degrees). I explained that I cannot give her anything to drink unless I raise her head of bed. She tole me to "leave me alone." I asked her if I can raise her HOB. She said no, and asked again for the water. She asked several times where she was and who I was. She is alert to name but confused to place,time,and purpose.
--- NOTE | 2018-10-09 19:10 | NUR ---
NURSE NOTES: Received report from Dane Garrison RN. Patient is awake in bed, A/O x1. Sinus rhythm on shop mechanic. No s/s of acute distress noted. Saturating well on room air. Jorge catheter intact and draining well to gravity. Left AC 20g IV saline lock noted and right forearm 20g IV, intact and patent, running D5NS with KCl 20 meq @ 50 cc/hr. Bed alarmed and locked in lowest position with side rails up x3. Call light left within reach. Will continue to monitor.
--- NOTE | 2018-10-09 19:10 | NUR ---
HAND-OFF: Report given to KACIE Osman. Patient VS stable at this time with no sign of acute distress.
[2018-10-09] MEDS ORDERED: Cefepime HCl 2 GM in D5W 55 ML IVPB SCH (21:00)
[2018-10-09] MEDS ORDERED: Cefepime 2gm in D5W 55ml IVPB SCH (21:00)
[2018-10-09] MEDS: Vancomycin 500mg/D5W 110ml IVPB SCH ×2 (21:58)
--- NOTE | 2018-10-09 22:15 | Progress Note ---
DATE: 10/09/2018 SUBJECTIVE: This is a 67-year-old female, currently in bed, slightly confused, doing better. No cough. No sputum production. OBJECTIVE: VITAL SIGNS: Blood pressure 134/81, pulse is 99, and saturation 95%. CHEST: Bilateral decreased breath sounds. CARDIOVASCULAR: Regular rhythm. ABDOMEN: Soft. EXTREMITIES: CCE. ASSESSMENT: 1. Altered mental status. 2. Possible aspiration pneumonia. 3. Chronic obstructive pulmonary disease. 4. Chronic pain. 5. Degenerative arthritis. PLAN: 1. We will transfer to tele bed. 2. Start PT and OT. 3. Discharge plan. 4. Discussed with the charge nurse. Demario Main M.D. DR: YUSUF JOB#: [id number] CC:
[2018-10-09] MEDS: Cefepime HCl 2 GM in D5W 55 ML IVPB SCH (23:20)
[2018-10-10] VITALS: BP 141/83
[2018-10-10 04:00] VITALS: BP 110/70
[2018-10-10] MEDS ORDERED: Vancomycin 750 MG in NS 275 ML IVPB SCH (05:00)
--- NOTE | 2018-10-10 05:00 | NUR ---
NURSE NOTES: Patient bathed, dressed, and repositioned. Patient remains free from s/s of acute distress. Will continue to monitor.
[2018-10-10] MEDS: dilTIAZem HCl 60mg tab NG SCH ×4 (05:52→21:19)
--- NOTE | 2018-10-10 07:20 | NUR ---
HAND-OFF: Report given to Crissy Cote RN.
[2018-10-10 08:00] VITALS: BP 127/75
--- NOTE | 2018-10-10 08:10 | NUR ---
NURSE NOTES: received pt in the bed, awake, confused, vital signs stable, no co pain, no SOB, skin warm and dry to touch, Jorge catheter with yellow urine, need assistance, bed in low position, call light within reach.
[2018-10-10] MEDS: Vancomycin 500mg/D5W 110ml IVPB SCH ×4 (08:15→20:22)
--- NOTE | 2018-10-10 10:33 | NUR ---
RD ASSESSMENT & RECOMMENDATIONS SEE CARE ACTIVITY FOR COMPLETE ASSESSMENT DAILY ESTIMATED NEEDS: Needs based on Pulmonary, dm 56kg adj 25-30 kcals/kg 3909-1512 total kcals 1-1.5 g protein/kg 56-84 g total protein 25-30 mL/kg 3353-1073 total fluid mLs NUTRITION DIAGNOSIS: Swallowing difficulty r/t respiratory failure as evidenced by s/p extubation, recs for liquify puree texture, NTL. CURRENT DIET: Low Na, NTL, CLD PO DIET RECOMMENDATIONS: Low Na, texture per SECONDARY SET UP MAN ADDITIONAL RECOMMENDATIONS: 1) Obtain calibrated bed scale wts (daily wts from 149#-> 162#?) 2) rec ssi / accuchecks 3) Lytes daily, replete as needed (Mg 1.7) 4) SECONDARY SET UP MAN eval upon extubation 5) Add Glucerna 1 tetra diomedes w/ each meal for liquify puree diet
[2018-10-10 12:00] VITALS: BP 138/86
--- NOTE | 2018-10-10 12:23 | Pulmonology Progress Note ---
Assessment/Plan Assessment/Plan 1. Acute respiratory failure, resolved 2. Altered mental status with history of hemorrhagic stroke. 3. Pneumonia right lower lobe. 4. Severe anemia, improved improving tolerated extubation alert and confused disc w RN CXR Subjective Constitutional: Reports: no symptoms Neurologic: Reports: confusion Allergies: Coded Allergies: ASPIRIN (Verified Allergy, Unknown, 10/06/18) PENICILLINS (Unverified Allergy, Unknown, 10/06/18) Objective Last 24 Hour Vital Signs Date Time Temp Pulse Resp B/P (MAP) Pulse Ox O2 Delivery O2 Flow Rate FiO2 10/10/18 08:50 93 Room Air 21 10/10/18 08:00 Room Air 10/10/18 08:00 92 10/10/18 08:00 98.0 91 23 127/75 (92) 97 10/10/18 05:52 94 110/70 10/10/18 04:00 98.2 94 18 110/70 (83) 95 10/10/18 04:00 Room Air 10/10/18 03:18 92 10/10/18 00:00 Room Air 10/10/18 00:00 97.8 103 20 141/83 (102) 94 10/09/18 23:33 100 10/09/18 21:58 104 139/90 10/09/18 20:00 Room Air 10/09/18 20:00 98.6 104 16 139/90 (106) 93 10/09/18 19:10 101 10/09/18 17:00 96 18 123/75 (91) 95 10/09/18 16:00 95 10/09/18 16:00 Room Air 10/09/18 16:00 98.6 98 20 120/76 (91) 96 10/09/18 15:00 94 18 121/79 (93) 95 10/09/18 14:00 92 21 118/88 (98) 95 10/09/18 13:09 91 127/85 10/09/18 13:00 91 18 127/85 (99) 98 10/09/18 12:30 127/85 Intake and Output 10/09/18 10/10/18 19:00 07:00 Intake Total 625 ml 855 ml Output Total 1000 ml 1200 ml Balance -375 ml -345 ml Intake Oral 25 ml 50 ml IV Total 600 ml 805 ml Output Urine Total 1000 ml 1200 ml # Bowel Movements 2 1 General Appearance: no acute distress HEENT: anicteric Respiratory/Chest: lungs clear Cardiovascular: normal rate Laboratory Tests 10/09/18 16:25: Vancomycin Level Trough 21.6H Current Medications Medications (Trade) Dose Ordered Sig/Yumiko Route PRN Reason Start Time Stop Time Status Last Admin Dose Admin Cefepime HCl 2 gm/ Dextrose 55 ml @ 110 mls/hr QHS IVPB 10/09/18 23:00 10/16/18 22:59 10/09/18 23:20 Clonidine HCl (Catapres Tab) 0.1 mg Q4H PRN NG bp over 160 syst 10/09/18 18:45 11/06/18 14:44 Clopidogrel Bisulfate (Plavix) 75 mg DAILY NG 10/10/18 09:00 11/06/18 12:59 10/10/18 08:14 Dextrose/ Electrolytes 1,000 ml @ 50 mls/hr Q20H IV 10/09/18 18:00 11/07/18 11:29 10/09/18 18:18 Diltiazem HCl (Cardizem) 60 mg EVERY 8 HOURS NG 10/09/18 22:00 11/06/18 13:59 10/10/18 05:52 Folic Acid (Folate) 5 mg DAILY NG 10/10/18 09:00 11/06/18 12:44 10/10/18 08:14 Metronidazole 100 ml @ 100 mls/hr Q6HR IVPB 10/09/18 18:00 10/13/18 21:59 10/10/18 11:50 Nitroglycerin (Ntg) 1 patch Q24H TDERMAL 10/10/18 12:45 11/06/18 12:44 Vancomycin HCl (Vanco rx to dose) 1 ea DAILY PRN MISC Per rx protocol 10/09/18 18:00 11/08/18 17:59 Vancomycin HCl 500 mg/Dextrose 110 ml @ 110 mls/hr Q12HR IVPB 10/09/18 21:00 10/14/18 20:59 10/10/18 08:15 Fernando Garcia MD October 10, 2018 12:23
--- NOTE | 2018-10-10 12:27 | Hematology/Onc Progress Note ---
Assessment/Plan Assessment/Plan Assessment and Recs: # Anemia of chronic disease due to underlying chronic medical issues, multifactorial --> Anemia w/u will order if hgb drops, rule out gi bleed --> No evidence of hemolysis is noted, peripheral smear has been reviewed. --> Hgb goal >7. Transfuse prn. --> Epogen or iron at this time is not particularly indicated --> Medications have been reviewed --> trend hgb 7-->12-->11-->11.8 # Leukocytosis/elevated white blood cell count, unspecified likely related to underlying stress reaction, smoking v more likely infection --> have reviewed peripheral smear and bandemia/neutrophilia noted, lactic acid is wnl --> continue antibiotics as needed, imaging reviewed --> monitor for resolution --> trend wbc 6-->16k-->12k-->17k # Thrombocytopenia with a plt count 100s --> plt trend 130-->262k improved --> likely was reactive process # Altered level of consciousness --> neuro consulted, r/o stroke v other cause # Respiratory failure intially intubated --> as per pulm, in icu --> extubated 10/08/18 # Right middle lobe pneumonia on imaging --> on abx # Status post cardiac arrest The timing of this note does not necessarily reflect the time of the patient was seen. Greatly appreciate consultation! Subjective Constitutional: Denies: no symptoms, chills, fever, malaise, weakness, other HEENT: Denies: no symptoms, eye pain, blurred vision, tearing, double vision, ear pain, ear discharge, nose pain, nose congestion, throat pain, throat swelling, mouth pain, mouth swelling, other Cardiovascular: Denies: no symptoms, chest pain, edema, irregular heart rate, lightheadedness, palpitations, syncope, other Respiratory: Denies: no symptoms, cough, shortness of breath, SOB with excertion, SOB at rest, sputum, wheezing, other Gastrointestinal/Abdominal: Denies: no symptoms, abdomen distended, abdominal pain, black stools, tarry stools, blood in stool, constipated, diarrhea, difficulty swallowing, nausea, poor appetite, poor fluid intake, rectal bleeding , vomiting, other Genitourinary: Denies: no symptoms, burning, discharge, frequency, flank pain, hematuria, incontinence, pain, urgency, other Endocrine: Denies: no symptoms, excessive sweating, flushing, intolerance to cold, intolerance to heat, increased hunger, increased thirst, increased urine, unexplained weight gain, unexplained weight loss, other Allergies: Coded Allergies: ASPIRIN (Verified Allergy, Unknown, 10/06/18) PENICILLINS (Unverified Allergy, Unknown, 10/06/18) Subjective 10/08: remains in the icu, refusing weaning, given ativan,cbc reviewed 10/09: no vents noted, extubated, remains in the icu, cbc has been reviewed, wbc stable 10/10: no events noted, no f/c, no night sweats, extubated Objective Objective Current Medications Medications (Trade) Dose Ordered Sig/Yumiko Route PRN Reason Start Time Stop Time Status Last Admin Dose Admin Cefepime HCl 2 gm/ Dextrose 55 ml @ 110 mls/hr QHS IVPB 10/09/18 23:00 10/16/18 22:59 10/09/18 23:20 Clonidine HCl (Catapres Tab) 0.1 mg Q4H PRN NG bp over 160 syst 10/09/18 18:45 11/06/18 14:44 Clopidogrel Bisulfate (Plavix) 75 mg DAILY NG 10/10/18 09:00 11/06/18 12:59 10/10/18 08:14 Dextrose/ Electrolytes 1,000 ml @ 50 mls/hr Q20H IV 10/09/18 18:00 11/07/18 11:29 10/09/18 18:18 Diltiazem HCl (Cardizem) 60 mg EVERY 8 HOURS NG 10/09/18 22:00 11/06/18 13:59 10/10/18 05:52 Folic Acid (Folate) 5 mg DAILY NG 10/10/18 09:00 11/06/18 12:44 10/10/18 08:14 Metronidazole 100 ml @ 100 mls/hr Q6HR IVPB 10/09/18 18:00 10/13/18 21:59 10/10/18 11:50 Nitroglycerin (Ntg) 1 patch Q24H TDERMAL 10/10/18 12:45 11/06/18 12:44 Vancomycin HCl (Vanco rx to dose) 1 ea DAILY PRN MISC Per rx protocol 10/09/18 18:00 11/08/18 17:59 Vancomycin HCl 500 mg/Dextrose 110 ml @ 110 mls/hr Q12HR IVPB 10/09/18 21:00 10/14/18 20:59 10/10/18 08:15 Last 24 Hour Vital Signs Date Time Temp Pulse Resp B/P (MAP) Pulse Ox O2 Delivery O2 Flow Rate FiO2 10/10/18 08:50 93 Room Air 21 10/10/18 08:00 Room Air 10/10/18 08:00 92 10/10/18 08:00 98.0 91 23 127/75 (92) 97 10/10/18 05:52 94 110/70 10/10/18 04:00 98.2 94 18 110/70 (83) 95 10/10/18 04:00 Room Air 10/10/18 03:18 92 10/10/18 00:00 Room Air 10/10/18 00:00 97.8 103 20 141/83 (102) 94 10/09/18 23:33 100 10/09/18 21:58 104 139/90 10/09/18 20:00 Room Air 10/09/18 20:00 98.6 104 16 139/90 (106) 93 10/09/18 19:10 101 10/09/18 17:00 96 18 123/75 (91) 95 10/09/18 16:00 95 10/09/18 16:00 Room Air 10/09/18 16:00 98.6 98 20 120/76 (91) 96 10/09/18 15:00 94 18 121/79 (93) 95 10/09/18 14:00 92 21 118/88 (98) 95 10/09/18 13:09 91 127/85 10/09/18 13:00 91 18 127/85 (99) 98 10/09/18 12:30 127/85 10/09/18 12:00 98.9 91 19 127/85 (99) 96 10/09/18 12:00 92 10/09/18 12:00 Room Air 10/09/18 11:00 96 22 134/83 (100) 93 10/09/18 10:00 98 24 124/82 (96) 93 10/09/18 09:00 91 20 130/73 (92) 92 10/09/18 08:00 98.6 89 15 128/78 (95) 95 10/09/18 08:00 89 10/09/18 08:00 Room Air 10/09/18 07:00 90 20 129/90 (103) 94 10/09/18 06:00 94 129/105 10/09/18 06:00 87 20 129/105 (113) 94 10/09/18 05:00 83 18 113/66 (82) 96 10/09/18 04:00 98.2 91 19 114/66 (82) 96 10/09/18 04:00 91 10/09/18 04:00 Room Air 10/09/18 03:00 101 18 109/68 (82) 97 10/09/18 02:00 112 24 118/84 (95) 95 10/09/18 01:00 110 21 134/75 (94) 93 10/09/18 00:00 106 10/09/18 00:00 99.2 106 22 135/75 (95) 93 10/09/18 00:00 Room Air 10/08/18 23:00 102 22 139/89 (106) 93 10/08/18 22:19 112 122/91 10/08/18 22:00 103 23 143/91 (108) 92 10/08/18 21:00 103 23 122/91 (101) 93 10/08/18 20:00 103 10/08/18 20:00 Room Air 10/08/18 20:00 99.0 103 23 146/88 (107) 94 10/08/18 19:00 101 23 149/85 (106) 93 10/08/18 18:00 97 19 148/85 (106) 96 10/08/18 17:00 100 19 149/91 (110) 97 10/08/18 16:00 100 10/08/18 16:00 99.1 97 24 134/88 (103) 97 10/08/18 16:00 4.0 10/08/18 16:00 Nasal Cannula 4.0 10/08/18 15:00 102 24 129/83 (98) 97 10/08/18 14:00 105 18 132/81 (98) 97 10/08/18 13:44 104 132/91 10/08/18 13:00 96 18 132/61 (84) 100 10/08/18 12:44 126/76 Intake and Output 10/09/18 10/10/18 19:00 07:00 Intake Total 625 ml 855 ml Output Total 1000 ml 1200 ml Balance -375 ml -345 ml Intake Oral 25 ml 50 ml IV Total 600 ml 805 ml Output Urine Total 1000 ml 1200 ml # Bowel Movements 2 1 Labs Test 10/08/18 03:00 10/08/18 04:00 10/09/18 04:10 10/09/18 16:25 Sodium Level 133 MMOL/L (136-145) 138 MMOL/L (136-145) Potassium Level 4.2 MMOL/L (3.5-5.1) 4.1 MMOL/L (3.5-5.1) Chloride Level 103 MMOL/L (98-107) 107 MMOL/L (98-107) Carbon Dioxide Level 20 MMOL/L (21-32) 19 MMOL/L (21-32) Anion Gap 10 mmol/L (5-15) 12 mmol/L (5-15) Blood Urea Nitrogen 7 mg/dL (7-18) 4 mg/dL (7-18) Creatinine 0.9 MG/DL (0.55-1.30) 0.7 MG/DL (0.55-1.30) Estimat Glomerular Filtration Rate > 60 mL/min (>60) > 60 mL/min (>60) Glucose Level 117 MG/DL (74-106) 91 MG/DL (74-106) Calcium Level 9.7 MG/DL (8.5-10.1) 9.3 MG/DL (8.5-10.1) Total Bilirubin 0.6 MG/DL (0.2-1.0) 0.6 MG/DL (0.2-1.0) Aspartate Amino Transf (AST/SGOT) 39 U/L (15-37) 29 U/L (15-37) Alanine Aminotransferase (ALT/SGPT) 22 U/L (12-78) 22 U/L (12-78) Alkaline Phosphatase 94 U/L (46-116) 109 U/L (46-116) Total Protein 6.2 G/DL (6.4-8.2) 5.8 G/DL (6.4-8.2) Albumin 2.5 G/DL (3.4-5.0) 2.5 G/DL (3.4-5.0) Globulin 3.7 g/dL 3.3 g/dL Albumin/Globulin Ratio 0.7 (1.0-2.7) 0.8 (1.0-2.7) Vancomycin Level Trough 22.2 ug/mL (5.0-12.0) 21.6 ug/mL (5.0-12.0) White Blood Count 12.7 K/UL (4.8-10.8) 16.9 K/UL (4.8-10.8) Red Blood Count 3.56 M/UL (4.20-5.40) 3.83 M/UL (4.20-5.40) Hemoglobin 11.0 G/DL (12.0-16.0) 11.8 G/DL (12.0-16.0) Hematocrit 32.1 % (37.0-47.0) 34.8 % (37.0-47.0) Mean Corpuscular Volume 90 FL (80-99) 91 FL (80-99) Mean Corpuscular Hemoglobin 30.8 PG (27.0-31.0) 31.0 PG (27.0-31.0) Mean Corpuscular Hemoglobin Concent 34.2 G/DL (32.0-36.0) 34.0 G/DL (32.0-36.0) Red Cell Distribution Width 12.0 % (11.6-14.8) 12.6 % (11.6-14.8) Platelet Count 226 K/UL (150-450) 214 K/UL (150-450) Mean Platelet Volume 7.3 FL (6.5-10.1) 7.9 FL (6.5-10.1) Neutrophils (%) (Auto) 70.0 % (45.0-75.0) 80.1 % (45.0-75.0) Lymphocytes (%) (Auto) 15.7 % (20.0-45.0) 8.6 % (20.0-45.0) Monocytes (%) (Auto) 10.4 % (1.0-10.0) 8.2 % (1.0-10.0) Eosinophils (%) (Auto) 3.0 % (0.0-3.0) 2.2 % (0.0-3.0) Basophils (%) (Auto) 0.9 % (0.0-2.0) 0.9 % (0.0-2.0) Phosphorus Level 2.7 MG/DL (2.5-4.9) 3.7 MG/DL (2.5-4.9) Magnesium Level 2.0 MG/DL (1.8-2.4) 1.7 MG/DL (1.8-2.4) Troponin I 0.008 ng/mL (0.000-0.056) 0.007 ng/mL (0.000-0.056) C-Reactive Protein, Quantitative 3.3 mg/dL (0.00-0.90) 6.3 mg/dL (0.00-0.90) Pro-B-Type Natriuretic Peptide 693 pg/mL (0-125) 644 pg/mL (0-125) Uric Acid 4.4 MG/DL (2.6-7.2) Height (Feet): 5 Height (Inches): 3.00 Weight (Pounds): 162 Objective Gen: reviewed, abnormal General Appearance: non-toxic, Stupor Head: normocephalic, atraumatic Eyes: bilateral eye normal inspection, bilateral eye PERRL Neck: supple Respiratory: decreased breath sounds, other - Poor tidal volume Cardiovascular: normal peripheral pulses, regular rate, rhythm, no edema Gi: non tender, decreased bowel sounds Genitourinary: normal inspection Musculoskeletal: other - Flaccid Psychiatric: other - Stupor Skin: warm/dry, cyanosis Roberto Florence MD October 10, 2018 12:27
[2018-10-10] MEDS: Nitroglycerin Patch 0.4mg TDERMAL SCH (12:45)
--- NOTE | 2018-10-10 12:56 | Cardiac Electrophysiology PN ---
Assessment/Plan Assessment/Plan 1. Troponin leak. 2 out of 3 troponins are negative. EKG shows sinus rhythm with nonspecific ST abnormality and prolonged QT. EF 55% 2. Status post respiratory failure with pneumonia. The patient is on intravenous antibiotic. extubated 10/08/18. 3. Hypertension. On Cardizem 60 mg every 8 hours 4. Sepsis. On vancomycin, Flagyl, and cefepime. 5. Anemia, hemoglobin was 7, repeat levels were OK. Further evaluation by Dr. Florence. DW Dr Gutierrez and RN Subjective Subjective BP has been OK. Transferred out of ICU. Confused. Objective Last 24 Hour Vital Signs Date Time Temp Pulse Resp B/P (MAP) Pulse Ox O2 Delivery O2 Flow Rate FiO2 10/10/18 08:50 93 Room Air 21 10/10/18 08:00 Room Air 10/10/18 08:00 92 10/10/18 08:00 98.0 91 23 127/75 (92) 97 10/10/18 05:52 94 110/70 10/10/18 04:00 98.2 94 18 110/70 (83) 95 10/10/18 04:00 Room Air 10/10/18 03:18 92 10/10/18 00:00 Room Air 10/10/18 00:00 97.8 103 20 141/83 (102) 94 10/09/18 23:33 100 10/09/18 21:58 104 139/90 10/09/18 20:00 Room Air 10/09/18 20:00 98.6 104 16 139/90 (106) 93 10/09/18 19:10 101 10/09/18 17:00 96 18 123/75 (91) 95 10/09/18 16:00 95 10/09/18 16:00 Room Air 10/09/18 16:00 98.6 98 20 120/76 (91) 96 10/09/18 15:00 94 18 121/79 (93) 95 10/09/18 14:00 92 21 118/88 (98) 95 10/09/18 13:09 91 127/85 10/09/18 13:00 91 18 127/85 (99) 98 Intake and Output 10/09/18 10/10/18 19:00 07:00 Intake Total 625 ml 855 ml Output Total 1000 ml 1200 ml Balance -375 ml -345 ml Intake Oral 25 ml 50 ml IV Total 600 ml 805 ml Output Urine Total 1000 ml 1200 ml # Bowel Movements 2 1 Laboratory Tests Test 10/09/18 16:25 Vancomycin Level Trough 21.6 ug/mL (5.0-12.0) H Objective HEAD AND NECK: No JVD. LUNGS: Coarse rhonchi. CARDIOVASCULAR: Shows regular S1 and S2 with no gallop or murmur. ABDOMEN: Soft. EXTREMITIES: No pitting edema. Nakul Calvert MD October 10, 2018 12:56
--- NOTE | 2018-10-10 14:00 | NUR ---
NURSE NOTES: vital signs stable, confused, uncooperative, continue monitoring.
--- NOTE | 2018-10-10 15:36 | Nephrology Progress Note ---
Assessment/Plan Problem List: (1) Respiratory failure (2) Hypocalcemia (3) Right middle lobe pneumonia (4) Hypertension (5) Elevated troponin I level Assessment acute respiratory failure- Severe Anemia doubt accuracy Severe Hypocalcemia doubt accuracy Severe hypoalbuminemia doubt accuracy ? sepsis elevated troponin HTN OOC Plan extubated lindsay urine studies monitor lytes and chemistries folic acid NG Nitrate , pavix ( ASA Allergy) Clonidin PRN Cardiazem for high BP start feeding mag IV as needed Subjective ROS Limited/Unobtainable: No Constitutional: Reports: malaise, weakness Objective Objective Last 24 Hour Vital Signs Date Time Temp Pulse Resp B/P (MAP) Pulse Ox O2 Delivery O2 Flow Rate FiO2 10/10/18 14:00 90 138/86 10/10/18 12:45 138/86 10/10/18 12:00 Room Air 10/10/18 12:00 99.3 90 22 138/86 (103) 96 10/10/18 11:40 93 10/10/18 08:50 93 Room Air 21 10/10/18 08:00 Room Air 10/10/18 08:00 92 10/10/18 08:00 98.0 91 23 127/75 (92) 97 10/10/18 05:52 94 110/70 10/10/18 04:00 98.2 94 18 110/70 (83) 95 10/10/18 04:00 Room Air 10/10/18 03:18 92 10/10/18 00:00 Room Air 10/10/18 00:00 97.8 103 20 141/83 (102) 94 10/09/18 23:33 100 10/09/18 21:58 104 139/90 10/09/18 20:00 Room Air 10/09/18 20:00 98.6 104 16 139/90 (106) 93 10/09/18 19:10 101 10/09/18 17:00 96 18 123/75 (91) 95 10/09/18 16:00 95 10/09/18 16:00 Room Air 10/09/18 16:00 98.6 98 20 120/76 (91) 96 Intake and Output 10/09/18 10/10/18 19:00 07:00 Intake Total 625 ml 905 ml Output Total 1000 ml 1200 ml Balance -375 ml -295 ml Intake Oral 25 ml 50 ml IV Total 600 ml 855 ml Output Urine Total 1000 ml 1200 ml # Bowel Movements 2 1 Laboratory Tests 10/09/18 16:25: Vancomycin Level Trough 21.6H Height (Feet): 5 Height (Inches): 3.00 Weight (Pounds): 162 General Appearance: no apparent distress Objective no change Gregory Gutierrez MD October 10, 2018 15:36
--- NOTE | 2018-10-10 15:54 | NUR ---
ST NOTE: SWALLOW STATUS: PT SEEN AT BEDSIDE IN LATE AM. ALERT, VERBAL, ABLE TO EXPRESS WANTS AND NEEDS. PT ORIENTED X 2, ABLE TO RECALL AUNT NUMBERS. PER PT, DENIED ANY SWALLOWING DIFFICULTY. TRIED TO GIVE PT PO TRIALS, HOWEVER, PT REFUSED. DISCUSSED WITH [employer]OR[employer]ION PLANT OPERATOR RE:PT'S CONDITIONS. PT ALSO REFUSED ASSISTANCE IN AM DURING BREAKFAST. HOLD OFF MODIFIED BARIUM SWALLOW STUDY AT THIS TIME. CONTINUE CURRENT DIET; CONSIDER ADVANCE TO MOIST PUREE WITH NECTAR THICK LIQUIDS DIET IF NEEDED. D/W THE STAFF.
[2018-10-10 16:00] VITALS: BP_SYST 124; BP_SYST 127; BP_DIAS 75; BP_DIAS 90
--- NOTE | 2018-10-10 19:05 | NUR ---
NURSE NOTES: Pt report given from Rosa HESTER CARLOS MANUEL. Pt appears to be in stable condition as she is watching TV. PT is alert and oriented times 2 and able to follow simple commands, pupils are round and reactive to light and accommodating. Pt is on room air, saturating well at 98%, no signs or symptoms of respiratory distress noted. Pt has a child monitor placed, active and displaying Sinus Rhythm. No signs or symptoms of cardiac distress noted. Pt has a lindsay patent and draining to gravity, no abnormalities noted. all safety precautions are active, bed is in lowest position, bed rails are up times 3, call light is within easy reach, bed alarm is active. will continue plan of care. Addendum: 10/10/18 at 2339 by MARJAN RAYMUNDO RN NURSE NOTES: at 1905 (10/10/18) Pt report given from Rosa HESTER CARLOS MANUEL. Pt appears to be in stable condition as she is watching TV. PT is alert and oriented times 2 and able to follow simple commands, pupils are round and reactive to light and accommodating. Pt is on room air, saturating well at 98%, no signs or symptoms of respiratory distress noted. Pt has a child monitor placed, active and displaying Sinus Rhythm. No signs or symptoms of cardiac distress noted. Pt has a R fore arm 20G and a L Fore arm 20G able to flush, no abnormalities noted to site Pt has a lindsay patent and draining to gravity, no abnormalities noted. all safety precautions are active, bed is in lowest position, bed rails are up times 3, call light is within easy reach, bed alarm is active. will continue plan of care.
--- NOTE | 2018-10-10 19:22 | NUR ---
HAND-OFF: Report given to BREANNE HESTER.
[2018-10-10 20:00] VITALS: BP 146/90
--- NOTE | 2018-10-10 20:00 | NUR ---
NURSE NOTES: Spoke with Valeria from Pharmacy, she stated/ confirmed Vanco Med is ok to give.
[2018-10-10] MEDS: Cefepime HCl 2 GM in D5W 55 ML IVPB SCH (20:22)
[2018-10-10] MEDS ORDERED: OLANZapine 2.5mg tab ORAL PRN (23:45)
[2018-10-11] VITALS: BP 148/88
--- NOTE | 2018-10-11 01:30 | Consultation ---
DATE OF CONSULTATION: 10/10/2018 CONSULTING PHYSICIAN: Cameron Luong M.D. HISTORY OF PRESENT ILLNESS: The patient is a 67-year-old female with a history of dementia as well as multiple medical problems including hypercholesteremia, thalassemia, hypertension, pneumonia who has been admitted to the hospital for medical stabilization. The patient was severely agitated today and wanted to leave against medical advice was present. The patient was illogical, disorganized, yelling, and screaming. She was not redirectable. The patient was unable to understand process, communicate, or appreciate information given to her in regards to her medical condition. PAST PSYCHIATRIC HISTORY: She has a history of dementia. PAST MEDICAL HISTORY: As above. ALLERGIES: Aspirin and penicillin. SUBSTANCE ABUSE HISTORY: No known history of illicit drug use or alcohol. MENTAL STATUS EXAMINATION: The patient is alert and oriented times self and place. She is uncooperative. Mood was agitated. Affect is blunted, congruent with mood. Thought process, disorganized. Thought content, no suicidal or homicidal ideation. Memory is impaired. Insight and judgment non-existent. ASSESSMENT: [place] I Dementia with behavior disturbance. [place] II Deferred. [place] III Altered mental status. [place] IV Low to moderate. [place] V 25. PLAN: 1. The patient will be started on Zyprexa 2.5 mg b.i.d. 2. Zyprexa 2.5 mg every 4 hours p.r.n. 3. The patient lacks capacity to make decisions and will be the next of kin and is a decision maker. Cameron Luong M.D. DR: DERIAN JOB#: [id number] CC:
[2018-10-11 04:00] VITALS: BP 147/89
[2018-10-11] MEDS: dilTIAZem HCl 60mg tab NG SCH ×4 (05:34→20:21)
[2018-10-11 05:36] LABS: BASOPHILS % (AUTO) 0.8 % (0.0-2.0); EOSINOPHILS % (AUTO) 3.8 % (0.0-3.0); HEMATOCRIT 33.2 % (37.0-47.0); HEMOGLOBIN 10.9 G/DL (12.0-16.0); MEAN CORPUSCULAR VOLUME 92 FL (80-99); MONOCYTES % (AUTO) 10.6 % (1.0-10.0); NEUTROPHILS % (AUTO) 67.8 % (45.0-75.0); PLATELET COUNT 234 K/UL (150-450); RED BLOOD COUNT 3.61 M/UL (4.20-5.40); RED CELL DISTRIBUTION WIDTH 12.5 % (11.6-14.8); WHITE BLOOD COUNT 13.2 K/UL (4.8-10.8)
[2018-10-11 06:03] LABS: PHOSPHORUS 2.8 MG/DL (2.5-4.9)
[2018-10-11 06:04] LABS: ALANINE AMINOTRANSFERASE 15 U/L (12-78); ALBUMIN 2.4 G/DL (3.4-5.0); ALBUMIN/GLOBULIN RATIO 0.8 (1.0-2.7); ALKALINE PHOSPHATASE 115 U/L (46-116); ANION GAP 11 mmol/L (5-15); ASPARTATE AMINO TRANSFERASE 23 U/L (15-37); BILIRUBIN,TOTAL 0.5 MG/DL (0.2-1.0); BLOOD UREA NITROGEN 4 mg/dL (7-18); CALCIUM 9.3 MG/DL (8.5-10.1); CARBON DIOXIDE 21 MMOL/L (21-32); CHLORIDE 105 MMOL/L (98-107); CREATININE 0.6 MG/DL (0.55-1.30); POTASSIUM 4.1 MMOL/L (3.5-5.1); SODIUM 137 MMOL/L (136-145)
--- NOTE | 2018-10-11 07:15 | NUR ---
HAND-OFF: Report given to Nisha HESTER.
--- NOTE | 2018-10-11 07:46 | NUR ---
NURSE NOTES: received patient from KACIE Lockhart. patient is awake and sitting up in bed, eating breakfast. she is responsive to verbal commands. denies pain at this time. patient is on room air, no s/sx of distress noted. IV sites are patent and intact. bed in lowest position and locked, siderails up, call light within reach. will continue to monitor.
[2018-10-11 08:00] VITALS: BP 126/82
[2018-10-11] MEDS: OLANZapine 2.5mg tab ORAL SCH ×2 (08:39→18:00)
[2018-10-11] MEDS: Vancomycin 500mg/D5W 110ml IVPB SCH ×4 (08:40→20:21)
--- NOTE | 2018-10-11 09:44 | NUR ---
RADIOLOGY DEPT., CHEST X-RAY DONE.-P.DYE
--- NOTE | 2018-10-11 10:09 | Cardiac Electrophysiology PN ---
Assessment/Plan Assessment/Plan 1. Troponin leak. 2 out of 3 troponins are negative. EKG shows sinus rhythm with nonspecific ST abnormality and prolonged QT. EF 55% 2. Status post respiratory failure. The patient is on intravenous antibiotic. Extubated 10/08/18. 3. Hypertension. On Cardizem 60 mg every 8 hours 4. PNA and Sepsis. On vancomycin, Flagyl, and cefepime. 5. Anemia, hemoglobin was 7, repeat levels were OK. William Florence. KENRICK RN Subjective Subjective BP better.No CP. Confused. Objective Last 24 Hour Vital Signs Date Time Temp Pulse Resp B/P (MAP) Pulse Ox O2 Delivery O2 Flow Rate FiO2 10/11/18 08:00 98.1 98 20 126/82 (97) 94 10/11/18 08:00 98 10/11/18 06:48 96 Nasal Cannula 2.0 28 10/11/18 05:34 95 147/89 10/11/18 04:00 96 10/11/18 04:00 Room Air 10/11/18 04:00 98.5 95 20 147/89 (108) 100 10/11/18 00:00 98 10/11/18 00:00 Room Air 10/11/18 00:00 98.9 97 20 148/88 (108) 100 10/10/18 21:19 107 146/91 10/10/18 20:00 Room Air 10/10/18 20:00 97.9 100 21 146/90 (108) 98 10/10/18 20:00 102 10/10/18 19:55 97 Room Air 2.0 28 10/10/18 16:00 Room Air 10/10/18 16:00 97.5 104 23 124/90 (101) 97 10/10/18 16:00 10/10/18 16:00 98 10/10/18 14:00 90 138/86 10/10/18 12:45 138/86 10/10/18 12:00 Room Air 10/10/18 12:00 Room Air 10/10/18 12:00 99.3 90 22 138/86 (103) 96 10/10/18 11:40 93 Intake and Output 10/10/18 10/11/18 19:00 07:00 Intake Total 1050 ml 265 ml Output Total 600 ml 700 ml Balance 450 ml -435 ml Intake Oral 500 ml IV Total 550 ml 265 ml Output Urine Total 600 ml 700 ml # Bowel Movements 5 1 Laboratory Tests Test 10/11/18 03:20 White Blood Count 13.2 K/UL (4.8-10.8) H Red Blood Count 3.61 M/UL (4.20-5.40) L Hemoglobin 10.9 G/DL (12.0-16.0) L Hematocrit 33.2 % (37.0-47.0) L Mean Corpuscular Volume 92 FL (80-99) Mean Corpuscular Hemoglobin 30.3 PG (27.0-31.0) Mean Corpuscular Hemoglobin Concent 32.9 G/DL (32.0-36.0) Red Cell Distribution Width 12.5 % (11.6-14.8) Platelet Count 234 K/UL (150-450) Mean Platelet Volume 7.3 FL (6.5-10.1) Neutrophils (%) (Auto) 67.8 % (45.0-75.0) Lymphocytes (%) (Auto) 17.0 % (20.0-45.0) L Monocytes (%) (Auto) 10.6 % (1.0-10.0) H Eosinophils (%) (Auto) 3.8 % (0.0-3.0) H Basophils (%) (Auto) 0.8 % (0.0-2.0) Sodium Level 137 MMOL/L (136-145) Potassium Level 4.1 MMOL/L (3.5-5.1) Chloride Level 105 MMOL/L (98-107) Carbon Dioxide Level 21 MMOL/L (21-32) Anion Gap 11 mmol/L (5-15) Blood Urea Nitrogen 4 mg/dL (7-18) L Creatinine 0.6 MG/DL (0.55-1.30) Estimat Glomerular Filtration Rate > 60 mL/min (>60) Glucose Level 88 MG/DL (74-106) Calcium Level 9.3 MG/DL (8.5-10.1) Phosphorus Level 2.8 MG/DL (2.5-4.9) Magnesium Level 1.6 MG/DL (1.8-2.4) L Total Bilirubin 0.5 MG/DL (0.2-1.0) Aspartate Amino Transf (AST/SGOT) 23 U/L (15-37) Alanine Aminotransferase (ALT/SGPT) 15 U/L (12-78) Alkaline Phosphatase 115 U/L (46-116) Total Protein 5.5 G/DL (6.4-8.2) L Albumin 2.4 G/DL (3.4-5.0) L Globulin 3.1 g/dL Albumin/Globulin Ratio 0.8 (1.0-2.7) L Objective HEAD AND NECK: No JVD. LUNGS: Coarse rhonchi. CARDIOVASCULAR: Regular S1 and S2 with no gallop or murmur. ABDOMEN: Soft. EXTREMITIES: No pitting edema. Nakul Calvert MD October 11, 2018 10:09
--- NOTE | 2018-10-11 10:52 | NUR ---
P.T NOTE: P.T EVALUATION COMPLETED. PATIENT IS ALERT, ORIENTED TO SELF AND PLACE , PERIODICALLY CONFUSED , EMOTIONAL AND IRRITABLE. PATIENT DENIED C/O PAIN BUT REPORTS BEING GENERALLY WEAK AND FATIGUED. PATIENT REQUIRES VERBAL CUES FOR ENCOURAGEMENT AND EXTENDED TIME TO INITIATE AND COMPLETE BED MOBILITY TASKS: MAX A X 1 FOR TURNING AND MAX A X 2 FOR SCOOTING UP AND DOWN AND SUPINE TO/FROM SITTING. PATIENT ABLE TO SIT AT THE EOB NOT MORE THAN 1 MIN WITH MAX SUPPORT. PATIENT UNABLE STAND. OVERALL POOR ACTIVITY TOLERANCE. RECOMMEND SNF FOR FURTHER REHAB AT [place]. FOR THEN MEANTIME , PATIENT WILL BE SEEN FOR STRENGTHENING EX'S, BALANCE AND FUNCTIONAL MOBILITY TRAINING DURING STAY.
[2018-10-11 11:43] VITALS: BP 139/85
--- NOTE | 2018-10-11 12:01 | Diagnostic Imaging Report ---
Indication: Shortness of breath Technique: One view of the chest Comparison: 10/08/2018 Findings: Interim removal of endotracheal and nasogastric tubes. Inspiration is suboptimal. There is equivocal mild interstitial congestion persisting. There is a very questionable patchy opacity in the right midlung. Patient is less rotated currently. Impression: Hypoventilatory exam Interim endotracheal and nasogastric tube removal Questionable right midlung patchy opacity, could represent patchy infiltrate or focus of airspace edema Equivocal mild interstitial congestion
--- NOTE | 2018-10-11 12:03 | Hematology/Onc Progress Note ---
Assessment/Plan Assessment/Plan Assessment and Recs: # Anemia of chronic disease due to underlying chronic medical issues, multifactorial --> Anemia w/u will order if hgb drops, rule out gi bleed --> No evidence of hemolysis is noted, peripheral smear has been reviewed. --> Hgb goal >7. Transfuse prn. --> Epogen or iron at this time is not particularly indicated --> Medications have been reviewed --> trend hgb 7-->12-->11-->11.8-->10.9 # Leukocytosis/elevated white blood cell count, unspecified likely related to underlying stress reaction, smoking v more likely infection --> have reviewed peripheral smear and bandemia/neutrophilia noted, lactic acid is wnl --> continue antibiotics as needed, imaging reviewed --> monitor for resolution --> trend wbc 6-->16k-->12k-->17k-->13k # Thrombocytopenia with a plt count 100s --> plt trend 130-->262k improved --> likely was reactive process # Altered level of consciousness --> neuro consulted, r/o stroke v other cause # Respiratory failure intially intubated --> as per pulm, in icu --> extubated 10/08/18 # Right middle lobe pneumonia on imaging --> on abx # Status post cardiac arrest The timing of this note does not necessarily reflect the time of the patient was seen. Greatly appreciate consultation! Subjective Constitutional: Denies: no symptoms, chills, fever, malaise, weakness, other HEENT: Denies: no symptoms, eye pain, blurred vision, tearing, double vision, ear pain, ear discharge, nose pain, nose congestion, throat pain, throat swelling, mouth pain, mouth swelling, other Cardiovascular: Denies: no symptoms, chest pain, edema, irregular heart rate, lightheadedness, palpitations, syncope, other Gastrointestinal/Abdominal: Denies: no symptoms, abdomen distended, abdominal pain, black stools, tarry stools, blood in stool, constipated, diarrhea, difficulty swallowing, nausea, poor appetite, poor fluid intake, rectal bleeding , vomiting, other Neurologic/Psychiatric: Denies: no symptoms, anxiety, depressed, emotional problems, headache, numbness, paresthesia, pre-existing deficit, seizure, tingling, tremors, weakness, other Allergies: Coded Allergies: ASPIRIN (Verified Allergy, Unknown, 10/06/18) PENICILLINS (Unverified Allergy, Unknown, 10/06/18) Subjective 10/08: remains in the icu, refusing weaning, given ativan,cbc reviewed 10/09: no vents noted, extubated, remains in the icu, cbc has been reviewed, wbc stable 10/10: no events noted, no f/c, no night sweats, extubated 10/11: periodically confused, no f/c, no night sweats, getting pt/ot Objective Objective Current Medications Medications (Trade) Dose Ordered Sig/Yumiko Route PRN Reason Start Time Stop Time Status Last Admin Dose Admin Cefepime HCl 2 gm/ Dextrose 55 ml @ 110 mls/hr QHS IVPB 10/09/18 23:00 10/16/18 22:59 10/10/18 20:22 Clonidine HCl (Catapres Tab) 0.1 mg Q4H PRN NG bp over 160 syst 10/09/18 18:45 11/06/18 14:44 Clopidogrel Bisulfate (Plavix) 75 mg DAILY NG 10/10/18 09:00 11/06/18 12:59 10/11/18 08:40 Diltiazem HCl (Cardizem) 60 mg EVERY 8 HOURS NG 10/09/18 22:00 11/06/18 13:59 10/11/18 05:34 Folic Acid (Folate) 5 mg DAILY NG 10/10/18 09:00 11/06/18 12:44 10/11/18 08:40 Lansoprazole (Prevacid) 30 mg DAILY ORAL 10/10/18 17:00 11/09/18 16:59 10/11/18 08:40 Magnesium Sulfate 100 ml @ 100 mls/hr Q1H IVPB 10/11/18 09:15 10/11/18 13:14 10/11/18 10:56 Metronidazole 100 ml @ 100 mls/hr Q6HR IVPB 10/09/18 18:00 10/13/18 21:59 10/11/18 05:34 Nitroglycerin (Ntg) 1 patch Q24H TDERMAL 10/10/18 12:45 11/06/18 12:44 Olanzapine (ZyPREXA) 2.5 mg BID ORAL 10/11/18 09:00 11/10/18 08:59 10/11/18 08:39 Olanzapine (ZyPREXA) 2.5 mg EVERY 4 HOURS PRN ORAL Agitation 10/10/18 23:45 11/09/18 23:44 Vancomycin HCl (Vanco rx to dose) 1 ea DAILY PRN MISC Per rx protocol 10/09/18 18:00 11/08/18 17:59 Vancomycin HCl 500 mg/Dextrose 110 ml @ 110 mls/hr Q12HR IVPB 10/09/18 21:00 10/14/18 20:59 10/11/18 08:40 Last 24 Hour Vital Signs Date Time Temp Pulse Resp B/P (MAP) Pulse Ox O2 Delivery O2 Flow Rate FiO2 10/11/18 11:43 97.9 83 19 139/85 (103) 98 10/11/18 08:00 98.1 98 20 126/82 (97) 94 10/11/18 08:00 98 10/11/18 08:00 Room Air 10/11/18 06:48 96 Nasal Cannula 2.0 10/11/18 05:34 95 147/89 10/11/18 04:00 96 10/11/18 04:00 Room Air 10/11/18 04:00 98.5 95 20 147/89 (108) 100 10/11/18 00:00 98 10/11/18 00:00 Room Air 10/11/18 00:00 98.9 97 20 148/88 (108) 100 10/10/18 21:19 107 146/91 10/10/18 20:00 Room Air 10/10/18 20:00 97.9 100 21 146/90 (108) 98 10/10/18 20:00 102 10/10/18 19:55 97 Room Air 2.0 28 10/10/18 16:00 Room Air 10/10/18 16:00 97.5 104 23 124/90 (101) 97 10/10/18 16:00 10/10/18 16:00 98 10/10/18 14:00 90 138/86 10/10/18 12:45 138/86 10/10/18 12:00 Room Air 10/10/18 12:00 Room Air 10/10/18 12:00 99.3 90 22 138/86 (103) 96 10/10/18 11:40 93 10/10/18 08:50 93 Room Air 21 10/10/18 08:00 Room Air 10/10/18 08:00 92 10/10/18 08:00 98.0 91 23 127/75 (92) 97 10/10/18 05:52 94 110/70 10/10/18 04:00 98.2 94 18 110/70 (83) 95 10/10/18 04:00 Room Air 10/10/18 03:18 92 10/10/18 00:00 Room Air 10/10/18 00:00 97.8 103 20 141/83 (102) 94 10/09/18 23:33 100 10/09/18 21:58 104 139/90 10/09/18 20:00 Room Air 10/09/18 20:00 98.6 104 16 139/90 (106) 93 10/09/18 19:10 101 10/09/18 17:00 96 18 123/75 (91) 95 10/09/18 16:00 95 10/09/18 16:00 Room Air 10/09/18 16:00 98.6 98 20 120/76 (91) 96 10/09/18 15:00 94 18 121/79 (93) 95 10/09/18 14:00 92 21 118/88 (98) 95 10/09/18 13:09 91 127/85 10/09/18 13:00 91 18 127/85 (99) 98 10/09/18 12:30 127/85 Intake and Output 10/10/18 10/11/18 19:00 07:00 Intake Total 1050 ml 265 ml Output Total 600 ml 700 ml Balance 450 ml -435 ml Intake Oral 500 ml IV Total 550 ml 265 ml Output Urine Total 600 ml 700 ml # Bowel Movements 5 1 Labs Test 10/09/18 04:10 10/09/18 16:25 10/11/18 03:20 White Blood Count 16.9 K/UL (4.8-10.8) 13.2 K/UL (4.8-10.8) Red Blood Count 3.83 M/UL (4.20-5.40) 3.61 M/UL (4.20-5.40) Hemoglobin 11.8 G/DL (12.0-16.0) 10.9 G/DL (12.0-16.0) Hematocrit 34.8 % (37.0-47.0) 33.2 % (37.0-47.0) Mean Corpuscular Volume 91 FL (80-99) 92 FL (80-99) Mean Corpuscular Hemoglobin 31.0 PG (27.0-31.0) 30.3 PG (27.0-31.0) Mean Corpuscular Hemoglobin Concent 34.0 G/DL (32.0-36.0) 32.9 G/DL (32.0-36.0) Red Cell Distribution Width 12.6 % (11.6-14.8) 12.5 % (11.6-14.8) Platelet Count 214 K/UL (150-450) 234 K/UL (150-450) Mean Platelet Volume 7.9 FL (6.5-10.1) 7.3 FL (6.5-10.1) Neutrophils (%) (Auto) 80.1 % (45.0-75.0) 67.8 % (45.0-75.0) Lymphocytes (%) (Auto) 8.6 % (20.0-45.0) 17.0 % (20.0-45.0) Monocytes (%) (Auto) 8.2 % (1.0-10.0) 10.6 % (1.0-10.0) Eosinophils (%) (Auto) 2.2 % (0.0-3.0) 3.8 % (0.0-3.0) Basophils (%) (Auto) 0.9 % (0.0-2.0) 0.8 % (0.0-2.0) Sodium Level 138 MMOL/L (136-145) 137 MMOL/L (136-145) Potassium Level 4.1 MMOL/L (3.5-5.1) 4.1 MMOL/L (3.5-5.1) Chloride Level 107 MMOL/L (98-107) 105 MMOL/L (98-107) Carbon Dioxide Level 19 MMOL/L (21-32) 21 MMOL/L (21-32) Anion Gap 12 mmol/L (5-15) 11 mmol/L (5-15) Blood Urea Nitrogen 4 mg/dL (7-18) 4 mg/dL (7-18) Creatinine 0.7 MG/DL (0.55-1.30) 0.6 MG/DL (0.55-1.30) Estimat Glomerular Filtration Rate > 60 mL/min (>60) > 60 mL/min (>60) Glucose Level 91 MG/DL (74-106) 88 MG/DL (74-106) Uric Acid 4.4 MG/DL (2.6-7.2) Calcium Level 9.3 MG/DL (8.5-10.1) 9.3 MG/DL (8.5-10.1) Phosphorus Level 3.7 MG/DL (2.5-4.9) 2.8 MG/DL (2.5-4.9) Magnesium Level 1.7 MG/DL (1.8-2.4) 1.6 MG/DL (1.8-2.4) Total Bilirubin 0.6 MG/DL (0.2-1.0) 0.5 MG/DL (0.2-1.0) Aspartate Amino Transf (AST/SGOT) 29 U/L (15-37) 23 U/L (15-37) Alanine Aminotransferase (ALT/SGPT) 22 U/L (12-78) 15 U/L (12-78) Alkaline Phosphatase 109 U/L (46-116) 115 U/L (46-116) Troponin I 0.007 ng/mL (0.000-0.056) C-Reactive Protein, Quantitative 6.3 mg/dL (0.00-0.90) Pro-B-Type Natriuretic Peptide 644 pg/mL (0-125) Total Protein 5.8 G/DL (6.4-8.2) 5.5 G/DL (6.4-8.2) Albumin 2.5 G/DL (3.4-5.0) 2.4 G/DL (3.4-5.0) Globulin 3.3 g/dL 3.1 g/dL Albumin/Globulin Ratio 0.8 (1.0-2.7) 0.8 (1.0-2.7) Vancomycin Level Trough 21.6 ug/mL (5.0-12.0) Height (Feet): 5 Height (Inches): 3.00 Weight (Pounds): 169 Objective Gen: reviewed, abnormal General Appearance: non-toxic, Stupor Head: normocephalic, atraumatic Eyes: bilateral eye normal inspection, bilateral eye PERRL Neck: supple Respiratory: decreased breath sounds, other - Poor tidal volume Cardiovascular: normal peripheral pulses, regular rate, rhythm, no edema Gi: non tender, decreased bowel sounds Genitourinary: normal inspection Musculoskeletal: other - Flaccid Psychiatric: other - Stupor Skin: warm/dry, cyanosis Roberto Florence MD October 11, 2018 12:03
[2018-10-11] MEDS: Nitroglycerin Patch 0.4mg TDERMAL SCH (12:05)
--- NOTE | 2018-10-11 12:10 | Nephrology Progress Note ---
Assessment/Plan Problem List: (1) Respiratory failure Assessment: resolved (2) Hypocalcemia Assessment: corrected (3) Right middle lobe pneumonia (4) Hypertension Assessment acute respiratory failure- Severe Anemia doubt accuracy Severe Hypocalcemia doubt accuracy Severe hypoalbuminemia doubt accuracy ? sepsis elevated troponin HTN OOC Plan now extubated- lindsay urine studies monitor lytes and chemistries folic acid NG Nitrate , pavix ( ASA Allergy) Clonidin PRN Cardiazem for high BP start feeding mag IV as needed Subjective ROS Limited/Unobtainable: No Objective Objective Last 24 Hour Vital Signs Date Time Temp Pulse Resp B/P (MAP) Pulse Ox O2 Delivery O2 Flow Rate FiO2 10/11/18 12:05 139/85 10/11/18 11:43 97.9 83 19 139/85 (103) 98 10/11/18 08:00 98.1 98 20 126/82 (97) 94 10/11/18 08:00 98 10/11/18 08:00 Room Air 10/11/18 06:48 96 Nasal Cannula 2.0 28 10/11/18 05:34 95 147/89 10/11/18 04:00 96 10/11/18 04:00 Room Air 10/11/18 04:00 98.5 95 20 147/89 (108) 100 10/11/18 00:00 98 10/11/18 00:00 Room Air 10/11/18 00:00 98.9 97 20 148/88 (108) 100 10/10/18 21:19 107 146/91 10/10/18 20:00 Room Air 10/10/18 20:00 97.9 100 21 146/90 (108) 98 10/10/18 20:00 102 10/10/18 19:55 97 Room Air 2.0 28 10/10/18 16:00 Room Air 10/10/18 16:00 97.5 104 23 124/90 (101) 97 10/10/18 16:00 10/10/18 16:00 98 10/10/18 14:00 90 138/86 10/10/18 12:45 138/86 Intake and Output 10/10/18 10/11/18 19:00 07:00 Intake Total 1050 ml 265 ml Output Total 600 ml 700 ml Balance 450 ml -435 ml Intake Oral 500 ml IV Total 550 ml 265 ml Output Urine Total 600 ml 700 ml # Bowel Movements 5 1 Laboratory Tests 10/11/18 03:20: White Blood Count 13.2H, Red Blood Count 3.61L, Hemoglobin 10.9L, Hematocrit 33.2L, Mean Corpuscular Volume 92, Mean Corpuscular Hemoglobin 30.3, Mean Corpuscular Hemoglobin Concent 32.9, Red Cell Distribution Width 12.5, Platelet Count 234, Mean Platelet Volume 7.3, Neutrophils (%) (Auto) 67.8, Lymphocytes (% ) (Auto) 17.0L, Monocytes (%) (Auto) 10.6H, Eosinophils (%) (Auto) 3.8H, Basophils (%) (Auto) 0.8, Sodium Level 137, Potassium Level 4.1, Chloride Level 105, Carbon Dioxide Level 21, Anion Gap 11, Blood Urea Nitrogen 4L, Creatinine 0.6, Estimat Glomerular Filtration Rate > 60, Glucose Level 88, Calcium Level 9.3, Phosphorus Level 2.8, Magnesium Level 1.6L, Total Bilirubin 0.5, Aspartate Amino Transf (AST/SGOT) 23, Alanine Aminotransferase (ALT/SGPT) 15, Alkaline Phosphatase 115, Total Protein 5.5L, Albumin 2.4L, Globulin 3.1, Albumin/ Globulin Ratio 0.8L Height (Feet): 5 Height (Inches): 3.00 Weight (Pounds): 169 General Appearance: no apparent distress Cardiovascular: normal rate Respiratory/Chest: decreased breath sounds Objective no change Gregory Gutierrez MD October 11, 2018 12:09
--- NOTE | 2018-10-11 13:55 | NUR ---
CASE MANAGEMENT:REVIEW 10/11/18 SI: RESPIRATORY FAILURE PNA. HYPOCALCEMIA 97.9 83 19 139/85 98% ON RA WBC+13.2 MAG-1.6 IS: IV MAG SULFATE Q1HR X4 IV CEFEPIME QHS IV VANCOMYCIN Q12 IV FLAGYL Q6HRS PLAVIX PO QD ZYPREXA PO BID CARDIZEM PO Q8HRS : STEP DOWN UNIT
--- NOTE | 2018-10-11 15:05 | NUR ---
DISCHARGE PLANNED PATIENT WILL RETURN TO [facility] [address] [facility].ED T: [phone] FOR NURSE TO NURSE REPORT [facility] HAS BEEN ARRANGED FOR [address] [employer] APPRENTICE MESSAGE LEFT FOR PATIENT'S COUSIN REGARDING DISCHARGE TRANSFER FORM COMPLETED
[2018-10-11 16:00] VITALS: BP 114/85
--- NOTE | 2018-10-11 16:23 | NUR ---
NURSE NOTES: report given to KACIE Kowalski from [facility]. ETA is 1730.
--- NOTE | 2018-10-11 17:48 | Pulmonology Progress Note ---
Assessment/Plan Assessment/Plan 1. Acute respiratory failure, resolved 2. Altered mental status with history of hemorrhagic stroke. 3. Pneumonia right lower lobe. 4. Severe anemia, improved improving not eating, uncooperative w care CXR with infiltrate cont abx disc w RN Subjective Constitutional: Reports: no symptoms Gastrointestinal/Abdominal: Reports: other - anorexia Allergies: Coded Allergies: ASPIRIN (Verified Allergy, Unknown, 10/06/18) PENICILLINS (Unverified Allergy, Unknown, 10/06/18) Objective Last 24 Hour Vital Signs Date Time Temp Pulse Resp B/P (MAP) Pulse Ox O2 Delivery O2 Flow Rate FiO2 10/11/18 16:00 Room Air 10/11/18 16:00 97.5 93 20 114/85 (95) 94 10/11/18 12:05 139/85 10/11/18 12:00 89 10/11/18 12:00 Room Air 10/11/18 11:43 97.9 83 19 139/85 (103) 98 10/11/18 08:00 98.1 98 20 126/82 (97) 94 10/11/18 08:00 98 10/11/18 08:00 Room Air 10/11/18 06:48 96 Nasal Cannula 2.0 28 10/11/18 05:34 95 147/89 10/11/18 04:00 96 10/11/18 04:00 Room Air 10/11/18 04:00 98.5 95 20 147/89 (108) 100 10/11/18 00:00 98 10/11/18 00:00 Room Air 10/11/18 00:00 98.9 97 20 148/88 (108) 100 10/10/18 21:19 107 146/91 10/10/18 20:00 Room Air 10/10/18 20:00 97.9 100 21 146/90 (108) 98 10/10/18 20:00 102 10/10/18 19:55 97 Room Air 2.0 28 Intake and Output 10/10/18 10/11/18 19:00 07:00 Intake Total 1050 ml 265 ml Output Total 600 ml 700 ml Balance 450 ml -435 ml Intake Oral 500 ml IV Total 550 ml 265 ml Output Urine Total 600 ml 700 ml # Bowel Movements 5 1 Objective uncooperative General Appearance: no acute distress HEENT: anicteric Respiratory/Chest: lungs clear Cardiovascular: normal rate Laboratory Tests 5/30/19 03:20: White Blood Count 13.2H, Red Blood Count 3.61L, Hemoglobin 10.9L, Hematocrit 33.2L, Mean Corpuscular Volume 92, Mean Corpuscular Hemoglobin 30.3, Mean Corpuscular Hemoglobin Concent 32.9, Red Cell Distribution Width 12.5, Platelet Count 234, Mean Platelet Volume 7.3, Neutrophils (%) (Auto) 67.8, Lymphocytes (% ) (Auto) 17.0L, Monocytes (%) (Auto) 10.6H, Eosinophils (%) (Auto) 3.8H, Basophils (%) (Auto) 0.8, Sodium Level 137, Potassium Level 4.1, Chloride Level 105, Carbon Dioxide Level 21, Anion Gap 11, Blood Urea Nitrogen 4L, Creatinine 0.6, Estimat Glomerular Filtration Rate > 60, Glucose Level 88, Calcium Level 9.3, Phosphorus Level 2.8, Magnesium Level 1.6L, Total Bilirubin 0.5, Aspartate Amino Transf (AST/SGOT) 23, Alanine Aminotransferase (ALT/SGPT) 15, Alkaline Phosphatase 115, Total Protein 5.5L, Albumin 2.4L, Globulin 3.1, Albumin/ Globulin Ratio 0.8L Current Medications Medications (Trade) Dose Ordered Sig/Yumiko Route PRN Reason Start Time Stop Time Status Last Admin Dose Admin Cefepime HCl 2 gm/ Dextrose 55 ml @ 110 mls/hr QHS IVPB 10/09/18 23:00 10/16/18 22:59 10/10/18 20:22 Clonidine HCl (Catapres Tab) 0.1 mg Q4H PRN NG bp over 160 syst 10/09/18 18:45 11/06/18 14:44 Clopidogrel Bisulfate (Plavix) 75 mg DAILY NG 10/10/18 09:00 11/06/18 12:59 10/11/18 08:40 Diltiazem HCl (Cardizem) 60 mg EVERY 8 HOURS NG 10/09/18 22:00 11/06/18 13:59 10/11/18 05:34 Folic Acid (Folate) 5 mg DAILY NG 10/10/18 09:00 11/06/18 12:44 10/11/18 08:40 Lansoprazole (Prevacid) 30 mg DAILY ORAL 10/10/18 17:00 11/09/18 16:59 10/11/18 08:40 Metronidazole 100 ml @ 100 mls/hr Q6HR IVPB 10/09/18 18:00 10/13/18 21:59 10/11/18 12:04 Nitroglycerin (Ntg) 1 patch Q24H TDERMAL 10/10/18 12:45 11/06/18 12:44 10/11/18 12:05 Olanzapine (ZyPREXA) 2.5 mg BID ORAL 10/11/18 09:00 11/10/18 08:59 10/11/18 08:39 Olanzapine (ZyPREXA) 2.5 mg EVERY 4 HOURS PRN ORAL Agitation 10/10/18 23:45 11/09/18 23:44 Vancomycin HCl (Vanco rx to dose) 1 ea DAILY PRN MISC Per rx protocol 10/09/18 18:00 11/08/18 17:59 Vancomycin HCl 500 mg/Dextrose 110 ml @ 110 mls/hr Q12HR IVPB 10/09/18 21:00 10/14/18 20:59 10/11/18 08:40 Fernando Garcia MD October 11, 2018 17:48
--- NOTE | 2018-10-11 19:10 | NUR ---
HAND-OFF: Report given to KACIE Lockhart. patient is in stable condition.
--- NOTE | 2018-10-11 20:07 | NUR ---
NURSE NOTES: Spoke with Valeria from Pharmacy, she stated it is ok to admin Vanco Medication.
--- NOTE | 2018-10-11 20:15 | Progress Note ---
DATE: 10/11/2018 SUBJECTIVE: The patient is more cooperative today. She is in physical therapy. Less agitation. Continues to be illogical and has been disorganized. MENTAL STATUS EXAMINATION: The patient is alert and oriented to time, self, and place. Mood is agitated. Affect is flat. Thought process is disorganized. Thought content, no suicidal or homicidal ideation. Cognition is impaired. ASSESSMENT: 1. Dementia with behavioral disturbance. 2. Provide the patient with reality orientation and supportive therapy. Cameron Luong M.D. DR: RENAY JOB#: [id number] CC:
--- NOTE | 2018-10-11 20:17 | NUR ---
NURSE NOTES: Pt report given to EMS [facility] from [facility]. Pt is DC in stable condition. no distress noted. pt DC with all belongings.
[2018-10-11] MEDS: Cefepime HCl 2 GM in D5W 55 ML IVPB SCH (20:20)
[2018-10-11] MEDS ORDERED: NS 275ml ONE (20:39)
[2018-10-11] MEDS ORDERED: Tubing IV Secondary IV ONE (20:39)
--- NOTE | 2018-10-12 10:21 | Discharge Summary ---
Discharge Summary Discharge Summary _ DATE OF ADMISSION: 10/06/2018 DATE OF DISCHARGE: 10/11/2018 DISCHARGED BY: Dr. Main REASON FOR ADMISSION: 67 years old female with past medical history of intracerebral hemorrhage, dementia, status post cardiopulmonary arrest ( apparently due to drug overuse), myocardial infarction, hypertension, COPD, diabetes mellitus, history of drug abuse, resident of senior care facility, was sent for evaluation due to altered level of consciousness for 1 hour. Upon arrival of paramedics, patient was obtunded, but blood pressure was stable. Accu-Chek 130. Patient presented to ED with altered level of consciousness , obtunded , with minimal but present gag reflex and cough , history of prior cardiac arrest. Patient found to be hypotensive, tachypneic and hypoxic. Patient patient received fluid bolus, and blood pressure improved. Patient received Narcan with minimal response, only slightly more open eyes. ABG revealed hypoxia . Patient demonstrated decreased gag reflex. Patient subsequently was orally intubated in emergency department. Chest x-ray revealed right middle lobe infiltrate. Patient pancultured, started on empiric antibiotics. Calcium gluconate given for critically low calcium. Laboratory work-up revealed no leukocytosis, anemia with hemoglobin 7 and hematocrit 22, hypocalcemia-5.0 and hypoalbuminemia- 1. Troponin was negative. Urine toxicology screen was positive for opiates. Initial lactic acid stable. Patient subsequently admitted to ICU for further management CONSULTANTS: mobile marketing manager Dr. Jones pulmonary Dr. Garcia language assistant Dr. Gutierrez radio maintainer/oncologist Dr. Florence psychiatrist [facility] COURSE: Patient admitted to ICU. Ventilator support and pulmonary toilet provided. Carbon Paste Mixer Operator closely followed. Patient was followed-up with chest x-ray and ABG. Settings titrated based on ABG results. Patient started on antibiotics. Blood cultures were negative. Patient developed leukocytosis and fever the next day. Leukocytosis trending down , fever resolved. Patient was able to be extubated on 10/08 and transferred to stepdown unit. Follow Up Rep followed. All four troponin were all negative. EKG revealed sinus rhythm with nonspecific ST abnormality and prolonged QT. Echocardiogram revealed ejection fraction of 55 to 60% with normal left ventricular chamber size, systolic function and wall motion. No evidence of pericardial effusion. No evidence of wall motion abnormality. No evidence of left ventricular hypertrophy. Blood pressure was out of control . Patient started on Cardizem and Clonidine was added on as needed basis. Blood pressure stabilized. Lipid panel was stable. Antiplatelet therapy with Plavix continued ( Patient allergic to aspirin). [employer]p Client Services closely followed . [employer] Client Services doubted accuracy results of hypocalcemia and hypoalbuminemia. The next day calcium 10.8 from initial 5 and albumin 2.7 from initial 1 Urine studies were done. Renal parameters and electrolytes were closely monitored. Electrolytes corrected as needed. Nephrotoxins were avoided. Exercise Physiologist recommendation implemented in plan of care . Bedside swallow evaluation recommended diet for quality of life with strict aspiration precaution and one-to-one feeding. Video swallow evaluation was recommended , which can be done as outpatient. Anemia work-up revealed evidence of anemia of chronic disease . Hemoglobin and hematocrit were closely monitored with goal to keep hemoglobin above 7. Prior to discharge hemoglobin 10.9 hematocrit 33.2. Low folate noted. Patient started on folic acid supplement. Pain management was addressed. Patient was working with physical therapist. Supportive care provided. Psychiatrist followed and diagnosed patient with dementia with behavioral disturbances. Reality orientation and supportive therapy provided. Psychiatric medication regimen was optimized. FINAL DIAGNOSES: Possible sepsis Acute respiratory failure, requiring intubation -resolved (s/p extubation 10/08 ) Altered mental status with history of hemorrhagic stroke Pneumonia right lower lobe , probably aspiration pneumonia COPD Hypertension [id number] Severe anemia Degenerative arthritis Chronic pain Opiate dependency Dementia with behavioral disturbances DISCHARGE MEDICATIONS: See Medication Reconciliation list. DISCHARGE INSTRUCTIONS: Patient was discharged to the senior care facility. Follow up with medical doctor at the facility. I have been assigned to dictate discharge summary for this account. I was not involved in the patient's management. Chhaya Mon NP October 12, 2018 10:21
--- NOTE | 2018-10-12 18:15 | Discharge Summary ---
DATE OF ADMISSION: 10/06/2018 DATE OF DISCHARGE: 10/11/2018 HOSPITAL COURSE: This is a -[id number] female who was admitted for altered mental status and impending acute respiratory . The patient was intubated, was admitted in ICU for three days. The patient was successfully extubated by herself and she was feeling better. Shortness of breath is improved. The patient had a pulmonary and neuro consult and nephrology consult. The patient was clinically improved. She did start physical therapy. The patient also had some behavioral issues which were resolved. Psychiatric consult was also obtained. The patient is clinically improving. She is going to go back to the senior care. DISCHARGE DIAGNOSES: 1. AMS, unknown reason. 2. Chronic bronchitis. 3. Hypertension. 4. Diabetes. 5. History of ulcers, resolved. The patient is going to go to the senior care with senior care medications. Continue bronchodilator treatment and . DISCHARGE MEDICATIONS: See the list. Demario Main M.D. DR: JERRY JOB#: [id number] CC:
== END 2018-10-11 20:40 | DRG 871 ==
LOC: EDBD 13:33 → EMR 13:55 → ICU 14:09 → EDBEDREQ 14:51 → 2W 10-09 19:06
PROC: 0BH18EZ Insertion of Endotracheal Airway into Trachea, Via Natural or Artificial Opening Endoscopic (ICD-10-PCS; principal; 2018-10-06)
PROC: 5A1945Z Respiratory Ventilation, 24-96 Consecutive Hours (ICD-10-PCS; principal; 2018-10-06)
DX: A41.9 Sepsis, unspecified organism (principal); J96.01 Acute respiratory failure with hypoxia; J69.0 Pneumonitis due to inhalation of food and vomit; G93.40 Encephalopathy, unspecified; F03.91 Unspecified dementia, unspecified severity, with behavioral disturbance; E11.9 Type 2 diabetes mellitus without complications; M19.90 Unspecified osteoarthritis, unspecified site; Z86.74 Personal history of sudden cardiac arrest; E83.51 Hypocalcemia; F11.10 Opioid abuse, uncomplicated; D64.9 Anemia, unspecified; E88.09 Other disorders of plasma-protein metabolism, not elsewhere classified; I10 Essential (primary) hypertension; Z86.73 Personal history of transient ischemic attack (TIA), and cerebral infarction without residual deficits; I95.9 Hypotension, unspecified; D69.6 Thrombocytopenia, unspecified; J44.9 Chronic obstructive pulmonary disease, unspecified; G89.29 Other chronic pain; I25.2 Old myocardial infarction
CPT/HCPCS: 31500; 36415; 36600; 70450; 71045; 74018; 80053; 80061; 80202; 80307; 80329; 81003; 82140; 82330; 82533; 82550; 82607; 82728; 82746; 82803; 83036; 83540; 83550; 83605; 83735; 83880; 84100; 84443; 84484; 84550; 85007; 85025; 86140; 87040; 87081; 93005; 93306; 94002; 94003; 94664; 96361; 96365; 96366; 96368; 96375; 99291; 99292; J2310

== ENCOUNTER 2018-10-16 08:57 | Inpatient (IN) | payer MEDICARE, OTHER ==
[~2018-10-16] VITALS: Ht 165.1 cm; Wt 101.6 kg
[~2018-10-16 08:57] MED LIST: ACETAMINOPHEN500 M5 ORAL; ALLOPURINOL100 M1 ORAL; ATORVASTATIN CA20 MG ORAL; FUROSEMIDE20 M1 ORAL; GABAPENTIN300 MG ORAL; HYDROCHLOROTH12.5 M2 ORAL; LACTULOSE20 GM/301 ORAL; NORCO 5-325 TA1 EACH ORAL; PANTOPRAZOLE SO20 MG ORAL; POTASSIUM CHLO20 ME3 PO; RAMIPRIL5 MG ORAL; RISPERIDONE1 MG ORAL; VITAMIN D1000 UNI1 ORAL
[2018-10-16 09:13] VITALS: BP 95/62
--- NOTE | 2018-10-16 09:13 | NUR ---
ED Nurse Note: Patient brought in to ER by ambulance from [facility] due to AMS and decreased saturation level. upon arrival pt O2 sat was between 87% to 92% in room air. 2L/min via NC applied and ERMD made aware. pt aao x1 and responds to shaking. fatigued and sleepy. pt is bedbound and skin clean and intact. pt has F/C intact and yellow urine 250cc noted. pt is tachycardia and low bp as documented.
[2018-10-16 10:21] LABS: HEMATOCRIT 41.3 % (37.0-47.0); HEMOGLOBIN 14.1 G/DL (12.0-16.0); MEAN CORPUSCULAR VOLUME 89 FL (80-99); PLATELET COUNT 270 K/UL (150-450); RED BLOOD COUNT 4.62 M/UL (4.20-5.40); RED CELL DISTRIBUTION WIDTH 12.6 % (11.6-14.8)
[2018-10-16 10:23] LABS: WHITE BLOOD COUNT 23.9 K/UL (4.8-10.8)
[2018-10-16 10:35] LABS: APPEARANCE,URINE SLIGHTLY CLOUDY; BILIRUBIN, URINE 1+ (NEGATIVE); GLUCOSE, URINE (UA) NEGATIVE (NEGATIVE); KETONES,URINE 1+ (NEGATIVE); LEUKOCYTE ESTERASE ,URINE 3+ (NEGATIVE); NITRITE,URINE NEGATIVE (NEGATIVE); PH,URINE 5 (4.5-8.0); PROTEIN,URINE 1+ (NEGATIVE); UROBILINOGEN,URINE NORMAL MG/DL (0.0-1.0)
[2018-10-16 10:39] LABS: COLOR,URINE YELLOW
[2018-10-16 10:49] LABS: ANION GAP 14 mmol/L (5-15); BLOOD UREA NITROGEN 18 mg/dL (7-18); CALCIUM 10.2 MG/DL (8.5-10.1); CARBON DIOXIDE 21 MMOL/L (21-32); CHLORIDE 101 MMOL/L (98-107); CREATININE 1.4 MG/DL (0.55-1.30); POTASSIUM 5.2 MMOL/L (3.5-5.1); SODIUM 136 MMOL/L (136-145)
[2018-10-16 10:55] LABS: ALANINE AMINOTRANSFERASE 12 U/L (12-78); ALBUMIN 2.7 G/DL (3.4-5.0); ALBUMIN/GLOBULIN RATIO 0.6 (1.0-2.7); ALKALINE PHOSPHATASE 110 U/L (46-116); ASPARTATE AMINO TRANSFERASE 36 U/L (15-37); BILIRUBIN,TOTAL 0.8 MG/DL (0.2-1.0); CKMB 0.5 NG/ML (0.0-3.6); CREATINE KINASE 50 U/L (26-308)
[2018-10-16 11:15] VITALS: BP 113/64
--- NOTE | 2018-10-16 11:21 | Diagnostic Imaging Report ---
Indications: Altered level of consciousness Technique: Spiral acquisitions obtained through the brain. Angled axial and coronal 5 x 5 mm slices were reconstructed. Total dose length product 1400.68 mGycm. CTDI vol(s) 70.38 mGy. Dose reduction achieved using automated exposure control Comparison: 10/06/2018 Findings: There is age-related enlargement of the ventricles and extra-axial CSF spaces. There is periventricular deep white matter low-attenuation, consistent with chronic microvascular ischemic changes. Old lacunar infarcts are seen in the left basal ganglia. No acute intracranial hemorrhage or edema, mass effect, nor midline shift. There is evidence of prior bilateral cataract surgery. The sinuses are clear. The mastoids are clear. The calvarium is intact Impression: Chronic and age-related changes. Negative for acute intracranial bleed or mass effect The CT scanner at [facility] is accredited by the [employer] and the scans are performed using protocols designed to limit radiation exposure to as low as reasonably achievable to attain images of sufficient resolution adequate for diagnostic evaluation.
[2018-10-16] MEDS ORDERED: Meropenem 1 GM in NS 55 ML IVPB ONE (11:30)
--- NOTE | 2018-10-16 13:39 | NUR ---
ED Nurse Note: report given to KACIE Bustamante. doctor to doctor report not given yet. pt will be transferred after doctor's report done.
--- NOTE | 2018-10-16 13:53 | Emergency Room Report ---
History of Present Illness General Chief Complaint: Altered Level of Consciousness Source: Medical Record, EMS Present Illness HPI This patient presents from a [facility] facility. She is here for being more altered than usual. Apparently, this patient is alert and oriented 2 typically. She is only oriented to self. She has no specific complaints. There is no report of fall or injury. There is no report of fever. There are no other complaints. Allergies: Coded Allergies: ASPIRIN (Verified Allergy, Unknown, 10/06/18) PENICILLINS (Unverified Allergy, Unknown, 10/06/18) Patient History Past Medical History: see triage record, DM, HTN, CVA/TIA, renal disease Social History: Denies: smoking, alcohol use, drug use Reviewed Nursing Documentation: PMH: Agreed; PSxH: Agreed Nursing Documentation-PMH Past Medical History: No History, Except For Hx Hypertension: Yes Hx COPD: Yes Hx Diabetes: Yes Hx Cerebrovascular Accident: Yes - intracerebral hemorrhage Hx Dementia: Yes Review of Systems All Other Systems: negative except mentioned in HPI Physical Exam Vital Signs Date Time Temp Pulse Resp B/P (MAP) Pulse Ox O2 Delivery O2 Flow Rate FiO2 10/16/18 08:54 118 20 90/60 (70) 96 Non-Rebreather 12.0 10/16/18 09:13 98.2 Sp02 EP Interpretation: reviewed, normal General Appearance: no apparent distress, alert, GCS 15, non-toxic Head: normocephalic, atraumatic Eyes: bilateral eye normal inspection ENT: hearing grossly normal, normal pharynx, no angioedema, normal voice Neck: full range of motion, supple/symm/no masses Respiratory: chest non-tender, lungs clear, normal breath sounds, no respiratory distress, no retraction, no accessory muscle use, speaking full sentences Cardiovascular #1: regular rate, rhythm, no edema Gastrointestinal: normal bowel sounds, non tender, soft, non-distended, no guarding, no rebound Rectal: deferred Musculoskeletal: back normal, normal range of motion, non-tender Neurologic: alert, responsive, grossly normal Psychiatric: mood/affect normal Skin: warm/dry, well hydrated, other - See RN skin exam Medical Decision Making Diagnostic Impression: Primary Impression: Sepsis Additional Impressions: Altered mental status Lactic acid acidosis Pneumonia ER Course This patient meets criteria for sepsis. His white blood cell count 24,000, lactic acidosis and altered mental status. The patient's chest x-ray does have a patchy opacity that could be pneumonia. There is no evidence of urinary tract infection. Other considerations or bacteremia or intra-abdominal infection. The patient does not localize to her abdomen. The patient was given broad-spectrum antibiotics and IV fluids and admitted for further evaluation and treatment. This patient is critically ill. This patient required complex medical decision- making, aggressive intervention, extensive laboratory workup and monitoring. Critical care time: 40 minutes. Laboratory Tests Test 10/16/18 10:00 10/16/18 10:10 10/16/18 11:30 White Blood Count 23.9 K/UL (4.8-10.8) *H Red Blood Count 4.62 M/UL (4.20-5.40) Hemoglobin 14.1 G/DL (12.0-16.0) Hematocrit 41.3 % (37.0-47.0) Mean Corpuscular Volume 89 FL (80-99) Mean Corpuscular Hemoglobin 30.4 PG (27.0-31.0) Mean Corpuscular Hemoglobin Concent 34.1 G/DL (32.0-36.0) Red Cell Distribution Width 12.6 % (11.6-14.8) Platelet Count 270 K/UL (150-450) Mean Platelet Volume 5.9 FL (6.5-10.1) L Neutrophils (%) (Auto) % (45.0-75.0) Lymphocytes (%) (Auto) % (20.0-45.0) Monocytes (%) (Auto) % (1.0-10.0) Eosinophils (%) (Auto) % (0.0-3.0) Basophils (%) (Auto) % (0.0-2.0) Differential Total Cells Counted 100 Neutrophils % (Manual) 89 % (45-75) H Lymphocytes % (Manual) 10 % (20-45) L Monocytes % (Manual) 1 % (1-10) Eosinophils % (Manual) 0 % (0-3) Basophils % (Manual) 0 % (0-2) Band Neutrophils 0 % (0-8) Platelet Estimate Adequate Platelet Morphology Normal Red Blood Cell Morphology Normal Urine Color Yellow Urine Appearance Slightly cloudy Urine pH 5 (4.5-8.0) Urine Specific [place] 1.020 (1.005-1.035) Urine Protein 1+ (NEGATIVE) H Urine Glucose (UA) Negative (NEGATIVE) Urine Ketones 1+ (NEGATIVE) H Urine Blood 1+ (NEGATIVE) H Urine Nitrite Negative (NEGATIVE) Urine Bilirubin 1+ (NEGATIVE) H Urine Ictotest Negative (NEGATIVE) Urine Urobilinogen Normal MG/DL (0.0-1.0) Urine Leukocyte Esterase 3+ (NEGATIVE) H Urine RBC 2-4 /HPF (0 - 2) H Urine WBC 10-15 /HPF (0 - 2) H Urine Squamous Epithelial Cells Few /LPF (NONE/OCC) Urine Bacteria Moderate /HPF (NONE) H Urine Yeast Many /HPF (NONE) H Sodium Level 136 MMOL/L (136-145) Potassium Level 5.2 MMOL/L (3.5-5.1) H Chloride Level 101 MMOL/L (98-107) Carbon Dioxide Level 21 MMOL/L (21-32) Anion Gap 14 mmol/L (5-15) Blood Urea Nitrogen 18 mg/dL (7-18) Creatinine 1.4 MG/DL (0.55-1.30) H Estimate Glomerular Filtration Rate 45.6 mL/min (>60) Glucose Level 121 MG/DL (74-106) H Lactic Acid Level 3.60 mmol/L (0.4-2.0) H 2.30 mmol/L (0.66-2.22) H Calcium Level 10.2 MG/DL (8.5-10.1) H Total Bilirubin 0.8 MG/DL (0.2-1.0) Aspartate Amino Transferase (AST) 36 U/L (15-37) Alanine Aminotransferase (ALT) 12 U/L (12-78) Alkaline Phosphatase 110 U/L (46-116) Total Creatine Kinase 50 U/L (26-308) Creatine Kinase MB 0.5 NG/ML (0.0-3.6) Creatine Kinase MB Relative Index 1.0 Troponin I 0.000 ng/mL (0.000-0.056) Total Protein 7.4 G/DL (6.4-8.2) Albumin 2.7 G/DL (3.4-5.0) L Globulin 4.7 g/dL Albumin/Globulin Ratio 0.6 (1.0-2.7) L Ammonia 22 umol/L (11-32) EKG Diagnostic Results Rate: normal Rhythm: NSR ST Segments: other - Diffuse Non-specific ST segment flattening. Rhythm Strip Diag. Results EP Interpretation: yes Rate: 100's Rhythm: NSR, no PVC's, no ectopy Chest X-Ray Diagnostic Results Chest X-Ray Diagnostic Results : Chest X-Ray Ordered: Yes # of Views/Limited/Complete: 1 View Indication: Other EP Interpretation: Yes Interpretation: other - R. Lingular opacity Impression: Other - Possible R.lingular PNA Electronically Signed by: Jen Barcenas DO CT/MRI/US Diagnostic Results CT/MRI/US Diagnostic Results : Imaging Test Ordered: CT head Impression No acute findings. Specifically no intracranial bleed, mass effect or edema. See official report. Last Vital Signs Date Time Temp Pulse Resp B/P (MAP) Pulse Ox O2 Delivery O2 Flow Rate FiO2 10/16/18 11:15 96.8 102 20 113/64 98 Nasal Cannula 2.0 Status: improved Disposition: ADMITTED INPATIENT Condition: Serious Referrals: Ty Main MD (PCP) Jen Barcenas DO Oct 16, 2018 13:53
--- NOTE | 2018-10-16 14:00 | NUR ---
ED Nurse Note: pt left department with 1 cath lab tech and 1 RN in stable condition.
--- NOTE | 2018-10-16 14:10 | NUR ---
NURSE NOTES: Received patient from ER, report given by KACIE Lugo. Alert and oriented x1. No signs and symptoms of acute distress noted at this time. IV sites asymptomatic and patent . No wounds noted upon admission. Belongings signed with transferring RN. Last BM 10/16, playground monitor on . Safety percussion placed, Bed in lowest position with two side rails up, break engaged and bed alarm on. Call light and bed side table within reach. Will continue plan of care.
--- NOTE | 2018-10-16 14:13 | Diagnostic Imaging Report ---
Indication: Shortness of breath Technique: One view of the chest Comparison: 10/11/2018 Findings: Mild interstitial prominence appears similar to the previous exam. Normal heart size. Pleural spaces are clear Impression: Interstitial prominence, may reflect mild interstitial congestion, unchanged from 10/11/2018
[2018-10-16 14:25] VITALS: BP 131/52
[2018-10-16 16:00] VITALS: BP 123/71
[2018-10-16] MEDS ORDERED: Albuterol/Ipratropium 3ml neb HHN PRN (16:30)
--- NOTE | 2018-10-16 19:06 | NUR ---
CASE MANAGEMENT: INITIAL REVIEW 10/16/2018 67 YO F NIKKI FROM [facility] CC: ALOC (MORE ALTERED THAN USUAL) PMHx: DM. HTN. CVA. DEMENTIA. SI:ALOC IS:MEROPENEM IV X1 NS BOLUS X1 PATIENT ADMITTED TO TELE 10/16/2018 @ 1253 DCP: PATIENT TO BE DISCHARGED TO SNF ONCE MEDICALLY CLEARED. PLAN OF CARE: ID CONSULT PULMO CONSULT
--- NOTE | 2018-10-16 19:13 | NUR ---
HAND-OFF: Report given to KACIE Hurley.
--- NOTE | 2018-10-16 19:15 | Consultation ---
DATE OF CONSULTATION: 10/16/2018 CONSULTING PHYSICIAN: Cameron Luong M.D. REFERRING PHYSICIAN: Ty Main M.D. HISTORY OF PRESENT ILLNESS: I am well familiar with this patient. The patient is coming from [facility]. The patient presented with cognitive impairment, waxing waning consciousness. She was having episodes of agitation, not able to be engaged during the evaluation. The patient is unable to process, communicate, or appreciate information is given to her in regards to her medical condition. PAST PSYCHIATRIC HISTORY: The patient has a history of dementia and agitation. PAST MEDICAL HISTORY: Hypertension, obesity, pneumonia, sepsis, lactic acidosis. ALLERGIES: Aspirin and penicillin. MENTAL STATUS EXAMINATION: The patient is alert, confused, disoriented. Mood is anxious. Affect is flat. Thought process, there is a paucity of thought content. Thought content, no suicidal or homicidal ideation. The patient is delusional. Insight and judgment is impaired. Memory is impaired. ASSESSMENT: [place] I Dementia with behavioral disturbance. Acute metabolic encephalopathy. [place] II Deferred. [place] III As above. [place] IV Low. [place] V 20. PLAN: 1. The patient will be started on risperidone 1 mg p.o. at bedtime. 2. Provide the patient with reality orientation and supportive therapy. 3. The patient lacks capacity and the cousin should be decision maker. Cameron Luong M.D. DR: JOANNA JOB#: [id number] CC:
--- NOTE | 2018-10-16 19:30 | NUR ---
NURSE NOTES: Received pt from KACIE Brandon. Pt awake, alert, and talkative. Bed in lowest position. Jorge cath noted, patent and draining. Call light within reach. Pt c/o pain. Will notify MD and will continue to monitor. lol
[2018-10-16 20:00] VITALS: BP 135/72
[2018-10-16] MEDS: NovoLOG Insulin Flexpen SUBQ SCH (21:00)
[2018-10-16] MEDS: Azithromycin 500 MG in D5W 275 ML IV SCH (21:20)
[2018-10-16] MEDS: cefTRIAXone 1 GM in D5W 55 ML IVPB SCH (21:33)
[2018-10-17] VITALS: BP 131/90
[2018-10-17] MEDS ORDERED: HYDROcodone/Acetamin 5/325 tab ORAL PRN (00:45)
--- NOTE | 2018-10-17 01:15 | History and Physical Report ---
DATE OF ADMISSION: 10/16/2018 HISTORY OF PRESENT ILLNESS: This is a 67-year-old female who came to the emergency room for altered mental status, hypoxia, and generalized slightly sinus tachycardic. PAST MEDICAL HISTORY: Significant for hypertension, COPD, arthritis. MEDICATIONS: See the list. ALLERGIES: NKA. FAMILY HISTORY: Noncontributory. SOCIAL HISTORY: [facility], mostly bedridden and needs assistance. REVIEW OF SYSTEMS: Cannot be obtained. PHYSICAL EXAMINATION: GENERAL: This is an elderly female who is currently awake. VITAL SIGNS: Blood pressure is 130/70, pulse 110, respirations 18 to 24, temperature, she has no fever. SKIN: Good skin turgor. HEENT: . PERRLA. NECK: Supple. No JVD. CHEST: Bilateral few crackles and wheezing. CARDIOVASCULAR: Regular rhythm. No gallop. No murmur. ABDOMEN: Soft. EXTREMITIES: No edema. GENITOURINARY: Deferred. LABORATORY DATA: White counts are high at 24,000. ASSESSMENT: 1. Sepsis. 2. Pneumonia. 3. Altered mental status. 4. History of dementia. 5. Anxiety. PLAN: We will admit on a telemetry bed. We will start IV antibiotics with Rocephin and Zithromax. Bronchodilator treatment. Consider Pulmonary and ID consult. Demario Main M.D. DR: JERRY JOB#: [id number] CC:
[2018-10-17 04:00] VITALS: BP 99/56
[2018-10-17] MEDS: NovoLOG Insulin Flexpen SUBQ SCH ×4 (06:30→21:00)
--- NOTE | 2018-10-17 07:42 | NUR ---
HAND-OFF: Report given to KACIE Virgen. Pt stable.
[2018-10-17 08:00] VITALS: BP 111/74
[2018-10-17 08:49] LABS: BASOPHILS % (AUTO) 0.5 % (0.0-2.0); EOSINOPHILS % (AUTO) 1.8 % (0.0-3.0); HEMOGLOBIN 10.8 G/DL (12.0-16.0); LYMPHOCYTES % (AUTO) 9.7 % (20.0-45.0); MEAN CORPUSCULAR VOLUME 92 FL (80-99); MONOCYTES % (AUTO) 5.9 % (1.0-10.0); NEUTROPHILS % (AUTO) 82.1 % (45.0-75.0); PLATELET COUNT 230 K/UL (150-450); RED BLOOD COUNT 3.59 M/UL (4.20-5.40); RED CELL DISTRIBUTION WIDTH 12.7 % (11.6-14.8)
[2018-10-17 08:59] LABS: ANION GAP 8 mmol/L (5-15); BLOOD UREA NITROGEN 12 mg/dL (7-18); CALCIUM 9.5 MG/DL (8.5-10.1); CARBON DIOXIDE 25 MMOL/L (21-32); CHLORIDE 103 MMOL/L (98-107); CREATININE 0.8 MG/DL (0.55-1.30); POTASSIUM 3.3 MMOL/L (3.5-5.1); SODIUM 136 MMOL/L (136-145)
[2018-10-17 09:04] LABS: ALANINE AMINOTRANSFERASE 9 U/L (12-78); ALBUMIN 2.3 G/DL (3.4-5.0); ALBUMIN/GLOBULIN RATIO 0.6 (1.0-2.7); ALKALINE PHOSPHATASE 89 U/L (46-116); ASPARTATE AMINO TRANSFERASE 22 U/L (15-37); BILIRUBIN,TOTAL 0.4 MG/DL (0.2-1.0)
[2018-10-17 12:00] VITALS: BP 99/61
--- NOTE | 2018-10-17 13:50 | Consultation ---
Consult Note Assessment/Plan DATE OF CONSULTATION: 10/17/2018 HISTORY OF PRESENT ILLNESS: The patient is a 67-year-old woman who comes to the emergency department because of AMS. She was found to have hypoxemia and marked leukocytosis with high lactate.Pneumonia was identified on chest x-ray and antibiotics were administered. I was called to see her in consultation. The patient can provide no additional history. PAST MEDICAL HISTORY: She lives in a retirement. She has had opioid overdose, urinary tract infection, basal ganglia stroke, gout, past cardiac arrest with rib fractures, anemia, protein-calorie malnutrition, morbid obesity, dementia, hypertension, esophageal ulcer, diaphragmatic hernia. She was here last month with pneumonia and was intubated. ALLERGIES: Aspirin and penicillin. REVIEW OF SYSTEMS: Cannot be obtained. PHYSICAL EXAMINATION: GENERAL: The patient is alert but confused. VITAL SIGNS: Blood pressure normal. There is no high fever. HEENT: Head is normocephalic. NECK: No jugular venous distention. CHEST: Decreased breath sounds. CARDIAC: Rhythm is regular. ABDOMEN: Soft and nontender. EXTREMITIES: No clubbing, cyanosis, or edema. DIAGNOSTIC DATA: Chest x-ray shows infiltrates. The white count is 24k. IMPRESSION: 1. Pneumonia with sepsis. 2. Altered mental status with history of hemorrhagic stroke. 3. Dementia 4. Anemia. PLAN: The patient will be admitted. We will give antibiotics and fluids. Blood transfusion will be given if needed. HHN ordered. Will follow, thanks. Fernando Garcia MD Oct 17, 2018 13:50
[2018-10-17 16:00] VITALS: BP 128/90
--- NOTE | 2018-10-17 17:00 | NUR ---
NURSE NOTES: DR. VILLEGAS IS AWARE OF POTASSIUM LEVEL 3.3. NO NEW ORDER.
--- NOTE | 2018-10-17 19:30 | NUR ---
NURSE NOTES: Report received from Preston Osuna RN. Pt is resting in bed in stable condition. Pt is AOx2, on 2L O2 via nasal cannula. Breathing is even and unlabored. No acute distress noted. IV site is L hand #22g and is asymptomatic, patent, and intact and running IV fluids at rx rate. Jorge is patent and draining to gravity. Fall precautions noted to be in place. Bed placed in lowest position with brake engaged, side rails up x3, and bed alarm on. Call light and side table placed within reach. Will continue to monitor.
--- NOTE | 2018-10-17 19:49 | NUR ---
HAND-OFF: Report given to Diaen HESTER. Endorsed plan of care.
[2018-10-17 20:00] VITALS: BP 143/88
[2018-10-17] MEDS: Albuterol/Ipratropium 3ml neb HHN SCH (20:06)
[2018-10-17] MEDS: cefTRIAXone 1 GM in D5W 55 ML IVPB SCH (20:43)
[2018-10-17] MEDS ORDERED: VITAMIN D1000 UNI1 ORAL (20:43)
[2018-10-17] MEDS ORDERED: ATORVASTATIN CA10 MG ORAL (20:43)
[2018-10-17] MEDS ORDERED: ACETAMINOPHEN325 M1 ORAL (20:43)
[2018-10-17] MEDS ORDERED: POTASSIUM CHLO10 MEQ ORAL (20:43)
[2018-10-17] MEDS ORDERED: PANTOPRAZOLE SO40 MG ORAL (20:43)
[2018-10-17] MEDS: Morphine Sulfate 2mg/ml Inj(IV/IM USE ONLY) IVP PRN (20:53)
[2018-10-17] MEDS: Azithromycin 500 MG in D5W 275 ML IV SCH (22:03)
[2018-10-18] VITALS: BP 112/74
--- NOTE | 2018-10-18 01:00 | Progress Note ---
DATE: 10/17/2018 SUBJECTIVE: The patient is calm today; however, the nurses state that the patient was agitated earlier. The patient has poor memory. Not engaged during the evaluation. Not being able to communicate rationally. Has waxing and waning consciousness, easily agitated. PAST PSYCHIATRIC HISTORY: Significant for dementia, anxiety disorder. PAST MEDICAL HISTORY: Obesity, hypertension, pneumonia, sepsis. ALLERGIES: Aspirin and penicillin. PLAN: 1. The patient will be continued on risperidone 0.5 mg p.r.n. 2. risperidone 1 mg at bedtime. 3. Provide the patient reality orientation and supportive therapy. Cameron Luong M.D. DR: DERIAN JOB#: [id number] CC:
--- NOTE | 2018-10-18 02:30 | Progress Note ---
DATE: 10/17/2018 SUBJECTIVE: This is a 67-year-old female, currently more awake and alert, slightly confused, but is improving. No shortness of breath OBJECTIVE: VITAL SIGNS: Blood pressure 111/74, pulse 72, saturation 92%, temperature is 98.4, heart rate is 111. SKIN: Good skin turgor. HEENT: NAD. CHEST: Bilaterally few crackles. CARDIOVASCULAR: Regular rhythm. No gallop. No murmur. ABDOMEN: Soft. EXTREMITIES: CCE. NEUROLOGICAL: No focal deficit. GENITOURINARY: Deferred. LABORATORY DATA: Her potassium was high a little bit at 5.5, we will repeat. ASSESSMENT: 1. Pneumonia. 2. Sepsis. 3. AMS. 4. Hypertension. 5. Chronic pain. PLAN: 1. We will currently continue current treatment. 2. Bronchodilator treatment. 3. Continue antibiotics. 4. Discussed with charge nurse. 5. We will order PT and OT. 6. Discharge plan to [facility] Pulmonary. Demario Main M.D. DR: JERRY JOB#: [id number] CC:
[2018-10-18 04:00] VITALS: BP 126/84
[2018-10-18] MEDS: NovoLOG Insulin Flexpen SUBQ SCH ×4 (06:11→21:00)
[2018-10-18] MEDS: Albuterol/Ipratropium 3ml neb HHN SCH ×4 (07:00→19:18)
--- NOTE | 2018-10-18 07:31 | NUR ---
HAND-OFF: Report given to Preston Osuna RN. Pt is resting in bed in stable condition. No acute distress noted. Endorsed plan of care.
--- NOTE | 2018-10-18 07:35 | NUR ---
NURSE NOTES: Received patient from Diane HESTER in bed resting, denies any pain. IV is intact. Bed is in lowest position with bedside rails X3, brakes engaged for safety. Call light is within easy reach. Will continue with the plan of care.
[2018-10-18 09:26] LABS: BASOPHILS % (AUTO) 0.7 % (0.0-2.0); EOSINOPHILS % (AUTO) 0.8 % (0.0-3.0); HEMATOCRIT 32.6 % (37.0-47.0); HEMOGLOBIN 10.8 G/DL (12.0-16.0); LYMPHOCYTES % (AUTO) 9.9 % (20.0-45.0); MEAN CORPUSCULAR VOLUME 91 FL (80-99); MONOCYTES % (AUTO) 5.1 % (1.0-10.0); NEUTROPHILS % (AUTO) 83.5 % (45.0-75.0); PLATELET COUNT 193 K/UL (150-450); RED BLOOD COUNT 3.58 M/UL (4.20-5.40); RED CELL DISTRIBUTION WIDTH 12.4 % (11.6-14.8); WHITE BLOOD COUNT 15.9 K/UL (4.8-10.8)
[2018-10-18 09:32] LABS: ANION GAP 9 mmol/L (5-15); BLOOD UREA NITROGEN 8 mg/dL (7-18); CALCIUM 9.6 MG/DL (8.5-10.1); CARBON DIOXIDE 25 MMOL/L (21-32); CHLORIDE 100 MMOL/L (98-107); CREATININE 0.6 MG/DL (0.55-1.30); POTASSIUM 3.2 MMOL/L (3.5-5.1); SODIUM 134 MMOL/L (136-145)
[2018-10-18 09:46] LABS: INR 1.1 (0.9-1.1)
[2018-10-18] MEDS: Morphine Sulfate 2mg/ml Inj(IV/IM USE ONLY) IVP PRN ×2 (15:55→21:16)
[2018-10-18] MEDS: Fluconazole 100mg tab ORAL SCH (15:56)
[2018-10-18 16:00] VITALS: BP 132/78
--- NOTE | 2018-10-18 16:50 | Pulmonology Progress Note ---
Assessment/Plan Assessment/Plan 1. Pneumonia with sepsis. 2. Altered mental status with history of hemorrhagic stroke. 3. Dementia 4. Anemia. WBC down from admission alert but confused no resp distress low K - Rx cont abx refuses O2 Subjective Constitutional: Reports: no symptoms Neurologic: Reports: confusion Allergies: Coded Allergies: ASPIRIN (Verified Allergy, Unknown, 10/06/18) PENICILLINS (Unverified Allergy, Unknown, 10/06/18) Objective Last 24 Hour Vital Signs Date Time Temp Pulse Resp B/P (MAP) Pulse Ox O2 Delivery O2 Flow Rate FiO2 10/18/18 14:50 99 18 96 Nasal Cannula 2.0 28 10/18/18 14:50 Nasal Cannula 10/18/18 12:00 103 10/18/18 10:59 Nasal Cannula 10/18/18 10:59 96 18 96 Nasal Cannula 2.0 28 10/18/18 09:00 Nasal Cannula 2.0 10/18/18 08:00 110 10/18/18 07:11 Nasal Cannula 10/18/18 07:11 96 Nasal Cannula 2.0 28 10/18/18 07:11 96 18 96 Nasal Cannula 2.0 28 10/18/18 04:00 101 10/18/18 04:00 98.7 103 18 126/84 (98) 95 10/18/18 00:00 98.3 108 18 112/74 (87) 96 10/18/18 00:00 107 10/17/18 21:00 Nasal Cannula 2.0 10/17/18 20:16 116 18 99 Nasal Cannula 2.0 28 10/17/18 20:06 114 18 95 Nasal Cannula 2.0 28 10/17/18 20:05 114 18 95 Nasal Cannula 2.0 28 10/17/18 20:05 95 Nasal Cannula 2.0 28 10/17/18 20:00 116 10/17/18 20:00 99.3 118 18 143/88 (106) 95 Intake and Output 10/17/18 10/18/18 19:00 07:00 Output Total 300 ml 500 ml Balance -300 ml -500 ml Output Urine Total 300 ml 500 ml General Appearance: no acute distress Respiratory/Chest: lungs clear Cardiovascular: normal rate Microbiology Date/Time Source Procedure Growth Status 10/16/18 10:00 Blood Blood Culture - Preliminary NO GROWTH AFTER 24 HOURS Resulted 10/16/18 09:45 Blood Blood Culture - Preliminary NO GROWTH AFTER 24 HOURS Resulted 10/16/18 12:40 Nasal Nares Left MRSA Culture - Final NO METHICILLIN RESISTANT STAPH AUREUS... Complete 10/16/18 10:00 Urine,Clean Catch Urine Culture - Preliminary Yeast Species Resulted 10/16/18 12:40 Rectum VRE Culture - Final Enterococcus Faecium - Vre Complete 10/16/18 12:40 Rectum - Final NO CARBAPENEM-RESISTANT ENTEROBACTERI... Complete Laboratory Tests 10/18/18 08:40: White Blood Count 15.9H, Red Blood Count 3.58L, Hemoglobin 10.8L, Hematocrit 32.6L, Mean Corpuscular Volume 91, Mean Corpuscular Hemoglobin 30.2, Mean Corpuscular Hemoglobin Concent 33.1, Red Cell Distribution Width 12.4, Platelet Count 193, Mean Platelet Volume 6.7, Neutrophils (%) (Auto) 83.5H, Lymphocytes ( %) (Auto) 9.9L, Monocytes (%) (Auto) 5.1, Eosinophils (%) (Auto) 0.8, Basophils (%) (Auto) 0.7, Prothrombin Time 11.3, Prothromb Time International Ratio 1.1, Activated Partial Thromboplast Time 32, Sodium Level 134L, Potassium Level 3.2L , Chloride Level 100, Carbon Dioxide Level 25, Anion Gap 9, Blood Urea Nitrogen 8, Creatinine 0.6, Estimat Glomerular Filtration Rate > 60, Glucose Level 94, Calcium Level 9.6 Current Medications Medications (Trade) Dose Ordered Sig/Yumiko Route PRN Reason Start Time Stop Time Status Last Admin Dose Admin Acetaminophen/ Hydrocodone Bitart ([place] 5/325) 1 tab Q4H PRN ORAL Moderate Pain (Pain Scale 4-6) 10/17/18 00:45 10/24/18 00:44 10/17/18 01:16 Albuterol/ Ipratropium (Albuterol/ Ipratropium) 3 ml QIDRT HHN 10/17/18 19:00 10/22/18 18:59 10/17/18 20:06 Azithromycin 500 mg/Dextrose 275 ml @ 275 mls/hr Q24HRS IV 10/16/18 22:00 10/22/18 22:59 10/17/18 22:03 Ceftriaxone Sodium 1 gm/ Dextrose 55 ml @ 110 mls/hr Q24H IVPB 10/16/18 20:00 10/23/18 19:59 10/17/18 20:43 Dextrose (Dextrose 50%) 25 ml Q30M PRN IV Hypoglycemia 10/16/18 16:30 11/15/18 16:29 Dextrose (Dextrose 50%) 50 ml Q30M PRN IV Hypoglycemia 10/16/18 16:30 11/15/18 16:29 Fluconazole (Diflucan) 100 mg DAILY ORAL 10/18/18 16:00 10/25/18 15:59 10/18/18 15:56 Insulin Aspart (NovoLOG) BEFORE MEALS AND HS SUBQ 10/16/18 21:00 11/15/18 20:59 Morphine Sulfate (Morphine Sulfate) 2 mg Q4H PRN IVP For Pain 10/17/18 02:00 10/24/18 01:59 10/18/18 15:55 Risperidone (RisperDAL) 0.5 mg Q6H PRN ORAL Agitation 10/17/18 22:00 11/16/18 21:59 Sodium Chloride 1,000 ml @ 75 mls/hr [id number] IV 10/16/18 17:00 11/15/18 16:59 10/18/18 09:05 Fernando Garcia MD Oct 18, 2018 16:50
--- NOTE | 2018-10-18 19:09 | NUR ---
HAND-OFF: Report given to Diane HESTER.Patient is in stable condition.
--- NOTE | 2018-10-18 19:30 | NUR ---
NURSE NOTES: Report received from Preston Osuna RN. Pt is resting in bed in stable condition. Pt is AOx3, with some confusion. Pt is on 2L O2 via nasal cannula and breathing is even and unlabored. No acute distress noted. IV site is L hand #20g and is asymptomatic, patent, and intact and running IV fluids at rx rate. Jorge catheter is patent and draining to gravity. Fall precautions noted to be in place. Bed in lowest position with brake engaged and side rails up x3. Call light and side table placed within reach. Will continue to monitor.
[2018-10-18 20:00] VITALS: BP 147/84
[2018-10-18] MEDS: cefTRIAXone 1 GM in D5W 55 ML IVPB SCH (21:16)
[2018-10-18] MEDS: Azithromycin 500 MG in D5W 275 ML IV SCH (23:20)
[2018-10-19] VITALS: BP 146/93
--- NOTE | 2018-10-19 00:30 | Progress Note ---
DATE: 10/18/2018 SUBJECTIVE: This is an elderly female who came with altered mental status, hypoxia, pneumonia. The patient is currently doing better, has been doing better since last two days. Short of breath is improved. More awake and alert, tolerating diet. OBJECTIVE: VITAL SIGNS: Stable. CHEST: Bilaterally few crackles. CARDIOVASCULAR: Regular rhythm. ABDOMEN: Soft. EXTREMITIES: CCE. NEUROLOGICAL: Generalized weakness and bedridden. ASSESSMENT: 1. Pneumonia. 2. Acute bronchitis. 3. Hypertension. 4. Generalized weakness. PLAN: 1. We will currently continue antibiotics. 2. Discharge plan to SNF. 3. Continue bronchodilator treatments and [facility]. Demario Main M.D. DR: Gurwinder JOB#: [id number] CC:
[2018-10-19 04:00] VITALS: BP 138/96
[2018-10-19] MEDS: NovoLOG Insulin Flexpen SUBQ SCH ×2 (06:30→11:30)
[2018-10-19] MEDS: Albuterol/Ipratropium 3ml neb HHN SCH ×3 (06:44→15:00)
--- NOTE | 2018-10-19 07:38 | NUR ---
HAND-OFF: Report given to Crissy Brooks RN. Pt is resting in bed in stable condition. No acute distress noted. Endorsed plan of care.
--- NOTE | 2018-10-19 07:39 | NUR ---
NURSE NOTES: Report received from AKCIE Contreras. Pt is resting in bed in stable condition. Pt is AOx3, with some confusion. Pt is on 2L O2 via nasal cannula and breathing is even and unlabored. No acute distress noted at this time. IV site is L hand #20g and is asymptomatic, patent, and intact and running IV fluids at rx rate. Jorge catheter is patent and draining to gravity. Fall precautions noted to be in place. Bed in lowest position with brake engaged and side rails up x3. Call light and side table placed within reach. Will continue to monitor.
[2018-10-19 08:00] VITALS: BP 154/90
[2018-10-19 08:19] LABS: BASOPHILS % (AUTO) 0.6 % (0.0-2.0); EOSINOPHILS % (AUTO) 1.8 % (0.0-3.0); HEMATOCRIT 32.8 % (37.0-47.0); HEMOGLOBIN 10.8 G/DL (12.0-16.0); LYMPHOCYTES % (AUTO) 14.5 % (20.0-45.0); MEAN CORPUSCULAR VOLUME 90 FL (80-99); MONOCYTES % (AUTO) 7.1 % (1.0-10.0); PLATELET COUNT 215 K/UL (150-450); RED BLOOD COUNT 3.63 M/UL (4.20-5.40); RED CELL DISTRIBUTION WIDTH 12.2 % (11.6-14.8); WHITE BLOOD COUNT 10.7 K/UL (4.8-10.8)
[2018-10-19 08:34] LABS: ANION GAP 10 mmol/L (5-15); BLOOD UREA NITROGEN 5 mg/dL (7-18); CALCIUM 9.7 MG/DL (8.5-10.1); CARBON DIOXIDE 25 MMOL/L (21-32); CHLORIDE 100 MMOL/L (98-107); CREATININE 0.5 MG/DL (0.55-1.30); POTASSIUM 3.4 MMOL/L (3.5-5.1); SODIUM 135 MMOL/L (136-145)
[2018-10-19] MEDS: Fluconazole 100mg tab ORAL SCH (08:41)
[2018-10-19] MEDS: Morphine Sulfate 2mg/ml Inj(IV/IM USE ONLY) IVP PRN (08:47)
[2018-10-19 12:00] VITALS: BP 140/97
--- NOTE | 2018-10-19 13:11 | Pulmonology Progress Note ---
Assessment/Plan Assessment/Plan 1. Pneumonia with sepsis. 2. Altered mental status with history of hemorrhagic stroke. 3. Dementia 4. Anemia. alert but confused no resp distress cont abx disc recurrent resp infx w Dr Main likely aspiration tohave swallow eval at Subjective Constitutional: Reports: no symptoms Allergies: Coded Allergies: ASPIRIN (Verified Allergy, Unknown, 10/06/18) PENICILLINS (Unverified Allergy, Unknown, 10/06/18) Objective Last 24 Hour Vital Signs Date Time Temp Pulse Resp B/P (MAP) Pulse Ox O2 Delivery O2 Flow Rate FiO2 10/19/18 12:00 98.1 101 20 140/97 (111) 97 10/19/18 11:00 Nasal Cannula 2.0 28 10/19/18 11:00 Nasal Cannula 2.0 28 10/19/18 09:00 Nasal Cannula 2.0 10/19/18 08:00 98.5 106 20 154/90 (111) 95 10/19/18 08:00 83 10/19/18 06:55 97 17 98 Nasal Cannula 2.0 28 10/19/18 06:44 99 18 96 Nasal Cannula 2.0 28 10/19/18 06:44 96 Nasal Cannula 2.0 28 10/19/18 04:00 99.4 98 18 138/96 (110) 96 10/19/18 04:00 101 10/19/18 00:00 105 10/19/18 00:00 99.5 105 16 146/93 (110) 95 10/18/18 21:00 Nasal Cannula 2.0 10/18/18 20:00 98.7 113 18 147/84 (105) 95 10/18/18 20:00 105 10/18/18 19:52 104 18 95 Room Air 21 10/18/18 19:22 91 Room Air 21 10/18/18 19:18 102 18 91 Room Air 21 10/18/18 16:00 98.2 101 18 132/78 (96) 99 10/18/18 16:00 101 10/18/18 14:50 99 18 96 Nasal Cannula 2.0 28 10/18/18 14:50 Nasal Cannula Intake and Output 10/18/18 10/19/18 19:00 07:00 Intake Total 250 ml Output Total 1300 ml Balance -1050 ml Intake Oral 250 ml Output Urine Total 1300 ml Respiratory/Chest: lungs clear Laboratory Tests 10/19/18 07:59: White Blood Count 10.7, Red Blood Count 3.63L, Hemoglobin 10.8L, Hematocrit 32.8L, Mean Corpuscular Volume 90, Mean Corpuscular Hemoglobin 29.8, Mean Corpuscular Hemoglobin Concent 33.0, Red Cell Distribution Width 12.2, Platelet Count 215, Mean Platelet Volume 7.0, Neutrophils (%) (Auto) 76.0H, Lymphocytes ( %) (Auto) 14.5L, Monocytes (%) (Auto) 7.1, Eosinophils (%) (Auto) 1.8, Basophils (%) (Auto) 0.6, Sodium Level 135L, Potassium Level 3.4L, Chloride Level 100, Carbon Dioxide Level 25, Anion Gap 10, Blood Urea Nitrogen 5L, Creatinine 0.5L, Estimat Glomerular Filtration Rate > 60, Glucose Level 106, Calcium Level 9.7, Legionella pneumophila Group 1 Ab [Pending], Legionella pneumophilia IgM Group 1 [Pending], Mycoplasma pneumoniae IgG Antibody [Pending] , Mycoplasma pneumoniae IgM Ab Titer [Pending] Current Medications Medications (Trade) Dose Ordered Sig/Yumiko Route PRN Reason Start Time Stop Time Status Last Admin Dose Admin Acetaminophen/ Hydrocodone Bitart ([place] 5/325) 1 tab Q4H PRN ORAL Moderate Pain (Pain Scale 4-6) 10/17/18 00:45 10/24/18 00:44 10/17/18 01:16 Albuterol/ Ipratropium (Albuterol/ Ipratropium) 3 ml QIDRT HHN 10/17/18 19:00 10/22/18 18:59 10/19/18 06:44 Azithromycin 500 mg/Dextrose 275 ml @ 275 mls/hr Q24HRS IV 10/16/18 22:00 10/22/18 22:59 10/18/18 23:20 Ceftriaxone Sodium 1 gm/ Dextrose 55 ml @ 110 mls/hr Q24H IVPB 10/16/18 20:00 10/23/18 19:59 10/18/18 21:16 Dextrose (Dextrose 50%) 25 ml Q30M PRN IV Hypoglycemia 10/16/18 16:30 11/15/18 16:29 Dextrose (Dextrose 50%) 50 ml Q30M PRN IV Hypoglycemia 10/16/18 16:30 11/15/18 16:29 Fluconazole (Diflucan) 100 mg DAILY ORAL 10/18/18 16:00 10/25/18 15:59 10/19/18 08:41 Insulin Aspart (NovoLOG) BEFORE MEALS AND HS SUBQ 10/16/18 21:00 11/15/18 20:59 Morphine Sulfate (Morphine Sulfate) 2 mg Q4H PRN IVP For Pain 10/17/18 02:00 10/24/18 01:59 10/19/18 08:47 Potassium Chloride (K-Dur) 10 meq TWICE A DAY ORAL 10/18/18 18:00 11/17/18 17:59 10/19/18 08:41 Risperidone (RisperDAL) 0.5 mg Q6H PRN ORAL Agitation 10/17/18 22:00 11/16/18 21:59 Sodium Chloride 1,000 ml @ 75 mls/hr [id number] IV 10/16/18 17:00 11/15/18 16:59 10/18/18 23:20 Fernando Garcia MD Oct 19, 2018 13:11
--- NOTE | 2018-10-19 14:55 | NUR ---
NURSE NOTES: Patient discharged to [facility] per Dr. Main's order. All discharge instructions explained to patient. Called to [facility] and report given to KACIE Garcia. IV discontinued, ID band removed and returned to histotechnician. Patient received a new prescriptions and all her belongings. Patient discharged in stable condition and left the hospital with [facility].
--- NOTE | 2018-10-19 17:48 | Cardiology Report ---
APPROVED REPORT EKG Measurement Heart [id number] Sinus tachycardia Marked ST abnormality, possible inferior subendocardial injury Abnormal ECG
--- NOTE | 2018-10-19 18:00 | Consultation ---
DATE OF CONSULTATION: 10/19/2018 INFECTIOUS DISEASE CONSULTATION CONSULTING PHYSICIAN: Augustin Richardson M.D. REFERRING PHYSICIAN: Ty Main M.D. REASON FOR CONSULTATION: Altered mental status. PAST MEDICAL HISTORY: 1. History of hypertension. 2. COPD. 3. Arthritis. 4. Opioid overdose in the past. 5. CVA. 6. Gout. 7. History of cardiac arrest. 8. Rib fracture. 9. Dementia. 10. Esophageal ulcer. 11. Diaphragmatic hernia. SOCIAL HISTORY: Unknown. FAMILY HISTORY: Unknown. REVIEW OF SYSTEMS: Unable to obtain currently. MEDICATIONS: As an inpatient, she is on fluconazole, Risperdal, albuterol and ipratropium, morphine, [place], azithromycin, insulin, and ceftriaxone. ALLERGIES: 1. Aspirin. 2. Penicillin. PHYSICAL EXAMINATION: VITAL SIGNS: Temperature 98.5, T-max of 99.5, pulse 106, respiratory rate 20, and blood pressure 154/90. O2 saturation 95%. HEENT: Pupils are equally reactive to light and accommodation. Mouth appears clean without thrush. NECK: Supple. No adenopathy. No JVD. CARDIOVASCULAR: Regular rate and rhythm. No murmurs. LUNGS: Clear to auscultation bilaterally. No crackles. No wheezes. ABDOMEN: Soft and nontender. No organomegaly. EXTREMITIES: No cyanosis, no clubbing, no edema. LABORATORY AND DIAGNOSTIC DATA: White count 23.9 on 10/16/2018. White count of 10.7 today, hemoglobin 10.8, hematocrit 32.8, MCV 90, and platelet count 215 with neutrophils of 76%. Sodium 135, potassium 3.4, chloride 100, bicarb 25, BUN 5, and creatinine 0.5. Glucose 106. Calcium . Total bilirubin 0.4, AST 22, ALT 9, and alkaline phosphatase 89. Total protein 6.4, albumin 2.3. UA showing 10 to 15 white cells. Urine culture is growing yeast from 10/16/2018. 10/16/2018 blood cultures are negative. Nasal swab was negative for MRSA. Rectal swab was positive for VRE. Chest x-ray showing interstitial prominence with mild congestion, unchanged. CT head showing chronic age-related changes. Negative for bleed or mass effect. ASSESSMENT: This is a 67-year-old lady with history of hypertension, dementia, and CVA, who comes in with altered mental status and is found to have, 1. Possible community-acquired pneumonia versus atypical pneumonia. 2. Leukocytosis is improving. 3. Cerebrovascular accident. 4. Hypertension 5. Fungal urinary tract infection. PLAN: 1. Continue ceftriaxone and azithromycin. 2. Continue fluconazole. 3. We will order sputum for Gram stain and culture. 4. We will order for serum Legionella antibody. 5. We will order for Mycoplasma serology. 6. We will follow up cultures and adjust antibiotics accordingly. I would like to thank Dr. Main for this consultation. Augustin Richardson M.D. DR: JOSH JOB#: [id number] CC:
--- NOTE | 2018-10-19 18:00 | Progress Note ---
DATE: 10/18/2018 The patient is awake and confused. She has waxing and waning consciousness, and is less agitated today. MENTAL STATUS EXAMINATION: The patient is alert and oriented time and self only. Mood is dysphoric. Affect is constricted, congruent with mood. Thought process is concrete. Thought content, no suicidal or homicidal ideation. Cognition is intact. ASSESSMENT: 1. Dementia. 2. Encephalopathy. PLAN: 1. We will continue current medications. 2. The patient lacks capacity to make decisions. She may refuse any change in medication. Cousin is the next of kin and decision maker. Cameron Luong M.D. DR: MAMIE JOB#: [id number] CC:
--- NOTE | 2018-10-20 01:00 | Progress Note ---
PROGRESS NOTE AND DISCHARGE SUMMARY SUBJECTIVE: This is an elderly lady who came with altered mental status, acute respiratory failure, COPD, and pneumonia. The patient received IV antibiotics. Pulmonary consult was obtained. The patient clinically improved. She is more awake, alert, tolerating fluids. Discussed with Dr. Garcia. The patient probably had slow aspiration pneumonia, that was the reason she does frequently become hypoxemic, come to the emergency room. We will do speech and swallow evaluation at [facility]. The patient can go back to the [facility] with p.o. antibiotics. DISCHARGE DIAGNOSES: 1. Hypoxia, secondary to aspiration pneumonia. 2. Chronic bronchitis. 3. Hypertension. 4. Depression. 5. Dementia. DIET: She is on mechanical soft diet. ACTIVITY: Physical therapy will provide and patient going to be mostly wheelchair bound or bedridden. Hospital course was otherwise unremarkable. Demario Main M.D. DR: Gurwinder JOB#: [id number] CC:
--- NOTE | 2018-10-20 02:00 | Progress Note ---
DATE: 10/19/2018 SUBJECTIVE: The patient is having anxiety, waxing and waning consciousness with memory impairment. The patient is more confused than her baseline. MENTAL STATUS EXAMINATION: The patient is alert, confused. Mood is anxious and agitated. Affect is constricted, congruent with mood. Thought process is concrete. Thought content, no suicidal or homicidal ideations. ASSESSMENT: Stable. PLAN: 1. We will continue with current medications. 2. Provide the patient with reality orientation and supportive therapy. 3. The patient lacks capacity to make decisions. Cameron Luong M.D. DR: CULLEN JOB#: [id number] CC:
--- NOTE | 2018-10-22 09:20 | Discharge Summary ---
Discharge Summary Discharge Summary _ DATE OF ADMISSION: October 16, 2018 DATE OF DISCHARGE: October 19, 2018 DISCHARGED BY: Dr. Caldera REASON FOR ADMISSION: 67 years old female with past medical history of hypertension, COPD, diabetes mellitus, intracerebral hemorrhage, dementia, presented from the prison facility for altered mental status. Patient usually alert and oriented x2. At this time she was only oriented to self. Patient require 100% nonrebreathing mask, initially saturated 96% on non- rebreathing mask. Laboratory work-up revealed significant leukocytosis WBC 22.9. Urinalysis revealed evidence of yeast and moderate bacteria minimal pyuria. Potassium 5.2. BUN 18, creatinine 1.4. Lactic acid 3.6. Stable LFT. Troponin negative. EKG revealed normal sinus rhythm with diffuse nonspecific ST segment flattening. Albumin 2.7. Ammonia 22. Chest x-ray demonstrated interstitial prominence, with right lingular opacity . CT of the head demonstrated chronic age-related changes, but was negative for acute intracranial bleeding or mass-effect. In the emergency department septic work-up initiated. Patient pancultured , given IV fluids and broad-spectrum antibiotic , and admitted to telemetry floor for further management. CONSULTANTS: pulmonary Dr. Garcia ID specialist Dr. Richardson psychiatrist [facility] COURSE: Patient admitted to telemetry floor. Pulmonology , ID specialist and psychiatric evaluation were requested. Patient continued on IV fluids with close monitoring of volumes and renal parameters. Electrolytes were closely monitored and corrected as needed/potassium. Patient initially started on broad-spectrum antibiotic. Blood cultures were negative. Urine culture revealed Marcie glabrata. Antibiotic provided as per ID specialist recommendation. Patient was on ceftriaxone and azithromycin for pneumonia along with fluconazole for fungal UTI. Legionella antigen and mycoplasma pneumonia IgG and IgM titers still pending at the time of this dictation. Leukocytosis resolved , no fevers. Busgirl followed. Supplemental oxygen titrated as needed to keep pulse oximetry above 92%. Pulmonary toilet provided. Per roll plugger machine operator, patient likely had aspiration pneumonia. He recommended to follow up with swallow evaluation at the facility. Strict aspiration/ reflux precautions were maintained. Prior to discharge pulse oximetry was stable on 2 L of oxygen via nasal cannula. No signs of respiratory distress. Hemoglobin and hematocrit were closely monitored with goal to keep hemoglobin above 7. Hemoglobin and hematocrit remained stable, prior to discharge hemoglobin 10.8, hematocrit 32.8. Blood pressure was closely monitored and managed with current regimen. Blood sugar was managed with sliding scale of insulin as needed. Psychiatrist followed. Per psychiatrist, patient had dementia with behavioral disturbances and acute metabolic encephalopathy secondary to sepsis. Patient started on risperidone at the bedtime. Reality orientation and supportive therapy provided. Patient condition was discussed with patient cousin, who should be her decision-maker, since patient lacks capacity to make informed decision , as per psychiatrist. Supportive care provided. Bowel regimen instituted. Patient clinically stabilized and was ready for transfer back to prison facility for continuation of care. FINAL DIAGNOSES: Sepsis Aspiration pneumonia versus atypical pneumonia Fungal UTI Acute metabolic encephalopathy secondary to sepsis Hypoxia , secondary to pneumonia History of CVA / intracerebral hemorrhage Hypertension Dementia with behavioral disturbances Anemia DISCHARGE MEDICATIONS: See Medication Reconciliation list. DISCHARGE INSTRUCTIONS: Patient was discharged to the prison facility. Follow up with medical doctor at the facility. I have been assigned to dictate discharge summary for this account. I was not involved in the patient's management. Chhaya Mon NP Oct 22, 2018 09:20
== END 2018-10-19 14:55 | DRG 871 ==
LOC: EDBD 08:57 → EMR 09:20 → 2E 12:53 → EDBEDREQ 13:30
DX: A41.9 Sepsis, unspecified organism (principal); G93.41 Metabolic encephalopathy; J69.0 Pneumonitis due to inhalation of food and vomit; J18.8 Other pneumonia, unspecified organism; F03.91 Unspecified dementia, unspecified severity, with behavioral disturbance; B37.49 Other urogenital candidiasis; Z88.6 Allergy status to analgesic agent; Z88.0 Allergy status to penicillin; I10 Essential (primary) hypertension; J44.9 Chronic obstructive pulmonary disease, unspecified; F41.9 Anxiety disorder, unspecified; Z86.73 Personal history of transient ischemic attack (TIA), and cerebral infarction without residual deficits; D64.9 Anemia, unspecified; M10.9 Gout, unspecified; Z86.74 Personal history of sudden cardiac arrest; M19.90 Unspecified osteoarthritis, unspecified site; R09.02 Hypoxemia; J42 Unspecified chronic bronchitis
CPT/HCPCS: 36415; 70450; 71045; 80048; 80053; 81003; 82140; 82550; 82553; 82962; 83605; 84484; 85007; 85025; 85610; 85730; 86713; 86738; 87040; 87081; 87086; 93005; 94640; 94664; 96361; 96365; 99291; J1815; J7620

== ENCOUNTER 2018-11-01 08:16 | Emergency (ER) | payer MEDICARE, OTHER ==
[~2018-11-01] VITALS: Ht 162.6 cm; Wt 72.6 kg
[~2018-11-01 08:16] MED LIST changes: +ACETAMINOPHEN325 M1 ORAL; +ATORVASTATIN CA10 MG ORAL; +PANTOPRAZOLE SO40 MG ORAL; +POTASSIUM CHLO10 MEQ ORAL
[2018-11-01 08:20] VITALS: BP 0/0
--- NOTE | 2018-11-01 08:20 | NUR ---
ED Nurse Note: Dr. Gibson called and informed JANEEN Real regarding the patient's . LAMD made PCP aware.
--- NOTE | 2018-11-01 08:20 | NUR ---
ED Nurse Note: pt was brought in by ra [facility] from [facility] c/o agonal breathing. per ems, pt was found on the bed with agonal breathing and they started cpr right away, ems were doing cpr for 20 minutes pior to ed arrival at 0806am, pt was connected to ambubag, pupils fully dilated, pt is non responsive to any stimulus. pt pt has iv site on the left forearm upon arrival and has lindsay catheter. pt was immediately placed on trauma bed and connected to monitor and defibrilator machine with 40% 02 sat on ambubag @ 15L/min, pt is asystole. no palpable pulse. cpr started right away, 0809 first epi was given, pt still ahs no pulse, ETT was inserted by ermd on first attemp and was checked by auscultation. 0812 second epi was given, NA bicard and calcium chloride was given. pt still has no pulse. 0815 3rd epi still no pulse, continues cpr was given, 0816am, 2nd na bicardf given, 0818 4th epi was given, pt is asystole. pt was defibrilated. pt checked with no pulse. 0820 pt was pronounced by ermd.
--- NOTE | 2018-11-01 08:26 | Emergency Room Report ---
History of Present Illness General Source: EMS Present Illness HPI Patient is a 67-year-old female brought in by EMS after cardiac arrest. Patient had been brought in for [facility]. She was noted to have initial PEA rhythm by paramedics. She was noted to be unresponsive and pulseless for approximately 10 minutes prior to arrival Per EMS.. Patient had been receiving oxygen and CPR by EMS on arrival. She was noted to have initially a idioventricular rhythm.Patient had prior history of chronic renal disease as well as previous cardiac arrest. Allergies: Coded Allergies: ASPIRIN (Verified Allergy, Unknown, 10/06/18) PENICILLINS (Unverified Allergy, Unknown, 10/06/18) Uncoded Allergies: PENICILLIN (Allergy, Unknown, 11/01/18) Patient History Past Medical History: see triage record Reviewed Nursing Documentation: PMH: Agreed; PSxH: Agreed Nursing Documentation-PMH Hx Cardiac Problems: Yes - s/p Arrest Hx Hypertension: Yes Hx COPD: Yes Hx Diabetes: Yes Hx Cancer: No Hx Gastrointestinal Problems: Yes - Old Abd surgery scars Hx Cerebrovascular Accident: Yes - intracerebral hemorrhage Hx Dementia: Yes Review of Systems All Other Systems: limited Physical Exam General Appearance: severe distress ENT: other - vomitus in oropharynx, no blood Neck: full range of motion Respiratory: other - no spontaneous respirations Cardiovascular #1: other - absent pulse, cpr ongoing Gastrointestinal: other - distended Neurologic: other - GCS3 Skin: normal inspection Medical Decision Making Diagnostic Impression: Primary Impression: Cardiac arrest ER Course Patient presented for cardiac arrest. Patient was noted to have been unresponsive and pulseless.Patient was noted to have arrest with CPR at the facility. She was noted to have downtime approximately 10 minutes per EMS. Patient was undergoing CPR and was given epinephrine as well as medications per code sheet. Patient had no return of spontaneous circulation and was noted to have subsequent asystole. Bedside cardiac ultrasound showed no cardiac activity. Patient was pronounced at 820.Patient's family member Addie Zuniga was notified of patient's as well as patient's primary care physician Dr. Main. Status: unchanged Disposition: Condition: Zack Gibson MD Nov 01, 2018 08:25
[2018-11-01] MEDS ORDERED: Calcium Chloride 10% 10ml carpuject IVP ONE (08:48)
[2018-11-01] MEDS ORDERED: Sodium Bicarbonate 8.4% 50ml Inj ONE (08:48)
--- NOTE | 2018-11-01 08:49 | NUR ---
ED Nurse Note: Spoke to Shital from [facility]: [id number]
--- NOTE | 2018-11-01 09:00 | NUR ---
ED Nurse Note: Called Ignition Specialist: Spoke to Doyle. Per Doyle, not a firepot operator and tender's case.
--- NOTE | 2018-11-01 10:06 | NUR ---
ED Nurse Note: spoke with Addie Zuniga, cousin/RP regarding the mortuary information and per Addie, she will call back as soon as the mortuary calls her back regarding the information of the bean picker machine operator of the body
--- NOTE | 2018-11-01 11:24 | NUR ---
TRU ROWAN CAME TO SEE THE PATIETN. GAVE ALL THE BELONGINGS TO HER AND SIGNED THE RELEASE FORM AND BELONGING'S LIST. [employer] IS THE CHOSEN MORTUARY AND THE GLAZIER ARTIST IS ON THE WAY
--- NOTE | 2018-11-01 13:00 | NUR ---
ED Nurse Note: PT WAS TAKEN TO MORTUARY.
== END 2018-11-01 13:00 | disposition expired ==
LOC: EDBD 08:16 → EMR 08:47
DX: I46.9 Cardiac arrest, cause unspecified (principal); I10 Essential (primary) hypertension; J44.9 Chronic obstructive pulmonary disease, unspecified; E11.9 Type 2 diabetes mellitus without complications; F03.90 Unspecified dementia, unspecified severity, without behavioral disturbance, psychotic disturbance, mood disturbance, and anxiety; Z88.6 Allergy status to analgesic agent; Z88.0 Allergy status to penicillin
CPT/HCPCS: 99291; J0171; J3490